=== PATIENT | male | born 1955 | race Caucasian/White ===

== ENCOUNTER → 2017-11-13 | Outpatient (CLI) | payer OTHER ==
[~2017-11-13] MED LIST: ADVAIR INH; ALIGN4 MG PO; ASMANEX220 MC1 PO; ASMANEX220 MCG PO; ASPIRIN81 M2 PO; BENTYL10 MG PO; CENTRUM SILVER1 EAC3 PO; DALMANE30 MG PO; DEXILANT60 MG PO; DIOVAN HCT 3201 EACH PO; DYMISTA NASAL S23 GM; FLOMAX0.4 MG PO; GADOBENATE DIMEGLUMINE 0 ML IV ONE; ISOSORBIDE DINI30 MG PO; NORVASC5 MG PO; OMEGA 3 PO; RANEXA500 MG PO; REGLAN10 MG PO; SOMA350 MG PO; TOPROL XL25 MG PO; ULTRAM50 MG PO; VASCEPA PO; XANAX1 MG PO; Z.0.CRESTOR40 MG PO; Z.0.DIOVAN HCT 1601 PO; Z.0.MULTIVITAMINS1 E PO; Z.0.NORVASC5 MG PO; Z.0.PLAVIX75 MG PO; Z.0.SOMA350 MG PO; Z.0.SUCRALFATE1 GM PO; Z.0.TRICOR145 MG PO; Z.0.ZETIA10 MG PO; Z.1.ZEGERID 40 MG1 E PO; ZANTAC300 MG PO
[2017-11-13 15:37] LABS: CREATININE, SERUM 2.25 mg/dL (0.72-1.25)
--- NOTE | 2017-11-15 08:16 | Diagnostic Imaging Report ---
History: Gait problems Comparison studies: None Technique: Sagittal T2; axial DWI, FLAIR, MPGR, T1, Coronal FLAIR. Intravenous contrast: None Findings: Scalp: Normal in signal . No masses . Bone marrow: Normal in signal intensity. Extra-axial: No masses, no fluid collections. Brain sulci: Multiple moderately prominent more significant at the sylvian fissures. Ventricles: Moderately prominent . No hydrocephalus . Parenchyma: Scattered and confluent periventricular and the white matter T2/FLAIR hyperintensities. No masses, hemorrhage, acute or chronic vascular insults. Mild volume loss at the bilateral hippocampi and fornices Suprasellar region: No abnormalities. Craniocervical junction: No abnormalities. Patent foramen magnum. No Chiari one malformation. Vessels: Normal flow-voids in the arteries and sinuses. IMPRESSION: 1. No acute abnormalities. 2. Mild to moderate volume loss more than expected for patient's age, and more prominent at the temporal lobes, which can be seen in some dementias. 3. Moderate chronic microvascular ischemic changes of the white matter. 4. Ventriculomegaly, this could be related to central volume loss or normal pressure hydrocephalus in the appropriate clinical setting. Signed by: DR Eliceo Solorio M.D. on 11/15/2017 8:12 AM
== END ==
LOC: MRI 14:20
PROVIDERS: ATTEND Student in an Organized Health Care Education/Training Program
DX: R26.9 Unspecified abnormalities of gait and mobility (principal)
CPT/HCPCS: 36415; 70551; 82565; 84520

== ENCOUNTER → 2018-01-30 | Outpatient (CLI) | payer OTHER ==
[~2018-01-30] MED LIST changes: -GADOBENATE DIMEGLUMINE 0 ML IV ONE; +LIDOCAINE HCL 1% LOCAL INJ 20 ML VIAL ONE
[2018-01-30 17:42] LABS: TOTAL PROTEIN,CSF 40.9 mg/dL (15-40)
[2018-01-30 18:11] LABS: APPEARANCE,CSF BLOODY (CLEAR); COLOR,CSF RED (COLORLESS)
[2018-01-30 18:12] LABS: TUBE NUMBER 3
[2018-01-30 18:16] LABS: WHITE BLOOD CELL,CSF 99 cells/uL (0-5)
[2018-01-30 18:42] LABS: ALBUMIN 3.7 g/dL (3.5-5.0); ANION GAP 16.2 mmol/L (8-16); CALCIUM 9.8 mg/dL (8.4-10.2); CREATININE, SERUM 1.35 mg/dL (0.72-1.25); POTASSIUM 3.2 mmol/L (3.5-5.1)
[2018-01-30 19:03] LABS: FREE T4 (FREE THYROXINE) 1.45 ng/dL (0.9-1.8); THYROID STIMULATING HORMONE 0.899 uIU/mL (0.350-4.940)
[2018-01-30 19:39] LABS: LYMPHOCYTES,CSF 73 % (40-80); MONOCYTES,CSF 7 %; NEUTROPHILS,CSF 20 % (0-6)
--- NOTE | 2018-01-31 14:31 | Diagnostic Imaging Report ---
PROCEDURE:LUMBAR PUNCTURE COMPARISON:None. INDICATIONS:NORMAL PRESSURE HYDROCEPHALUS FINDINGS:Lumbar puncture was requested by the clinical service. Informed written consent was obtained after the risks, benefits and alternatives of lumbar puncture were explained to the patient. Hiv Counselor films were obtained, and demonstrated 5 non-rib bearing lumbar type vertebral bodies. The patient was placed in the prone position on the fluoroscopy table. The back was prepped and draped using usual sterile technique. Local anesthesia was achieved with lidocaine 1%. Using fluoroscopic guidance, a 25 G spine needle was inserted at the L2/L3 intervertebral level until the needle reached the spinal canal with return of CSF. Opening pressure is estimated at less than 8 cm of H20 (prone position). 32 cc of clear CSF were obtained, and placed into sterile containers and sent to the laboratory for analysis. The pressure upon completion was estimated at less than 8 cm of H2O. The patient tolerated the procedure well without immediate complications. CONCLUSION: Successful fluoroscopic guided lumbar puncture. Dictated by: Scot Batista M.D. on 01/31/2018 at 14:32 Electronically approved by: Scot Batista M.D. on 01/31/2018 at 14:32
== END ==
LOC: DX 11:15
PROVIDERS: ATTEND Student in an Organized Health Care Education/Training Program
DX: G91.2 (Idiopathic) normal pressure hydrocephalus (principal)
CPT/HCPCS: 36415; 62270; 77003; 80053; 82607; 82945; 83921; 84157; 84165; 84439; 84443; 86334; 87070; 87205; 89051; J2001

== ENCOUNTER 2018-09-16 06:45 | Emergency (ER) | payer MEDICARE ==
[~2018-09-16] VITALS: Ht 180.3 cm; Wt 96.2 kg
[~2018-09-16 06:45] MED LIST changes: -LIDOCAINE HCL 1% LOCAL INJ 20 ML VIAL ONE
--- OUTSIDE RECORDS SUMMARY | 2018-09-16 06:49 | XMS REPORT | Clinical Summary ---
Author Author [facility] Address Unknown Phone Unavailable Care Team Providers Care Restaurant Team Member Name Role Phone Jayme Daugherty MD PCP Allergies No Known Allergies Medications End Date Status Medication Sig Dispensed Refills Start Date Active ALPRAZolam (XANAX) 0.5 MG Take 1 mg by 0 tablet mouth. Active amLODIPine (NORVASC) 5 mg Take 5 mg by 0 tablet mouth. Active aspirin (ECOTRIN) 81 MG Take 81 mg by 0 enteric coated tablet mouth. Active carisoprodol (SOMA) 350 Take 350 mg 0 MG tablet by mouth. Active clopidogrel (PLAVIX) 75 Take 75 mg by 0 mg tablet mouth. Active pantoprazole (PROTONIX) Take 40 mg by 0 40 MG EC tablet mouth daily. Active ezetimibe (ZETIA) 10 mg Take 10 mg by 0 tablet mouth. Active VASCEPA 1 gram capsule 0 7 Active isosorbide mononitrate Take 15 mg by 0 (IMDUR) 30 MG 24 hr mouth. tablet Active metoprolol succinate XL Take 100 mg 0 (TOPROL-XL) 100 mg 24 hr by mouth. tablet Active nitroglycerin (NITROSTAT) 0 0.4 MG SL tablet 7 Active potassium chloride 0 (K-DUR,KLOR-CON) 10 MEQ 7 CR tablet Active primidone (MYSOLINE) 50 0 MG tablet 8 Active ranitidine (ZANTAC) 300 0 MG tablet 7 Active RANEXA 500 mg 12 hr ER 0 tablet 7 Active rosuvastatin (CRESTOR) 20 Take 40 mg by 0 MG tablet mouth. Active tamsulosin (FLOMAX) 0.4 0 mg capsule,extended 8 release 24hr Active valsartan-hydrochlorothia 0 zide (DIOVAN-HCT) 320-25 7 mg per tablet Active pseudoepHEDrine (SUDAFED) Take 30 mg by 0 30 MG tablet mouth every 4 (four) hours as needed for congestion. Active Problems No known active problems Encounters Care Team Description Date Type Specialty Genaro Vuong MD Primary osteoarthritis of both knees (Primary Dx); History of total bilateral knee replacement 11/19/2017 Office Visit Orthopedic Surgery Gabrielle Moran Acute pain of both knees (Primary Dx) 11/16/2017 Orders Only Orthopedic Surgery after 09/15/2017 Social History Date Tobacco Use Types Packs/Day Years Used Never Assessed Sex Assigned at Date Recorded Not on file Industry Job Start Date Occupation Not on file Not on file Not on file Travel End Travel History Travel Start No recent travel history available. 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 PROGRAMMING MANAGER Weight 94.3 kg (208 lb) 11/19/2017 3:48 PM COMPUTER PROGRAMMING MANAGER Height 177.8 cm (5' 10") 11/19/2017 3:48 PM COMPUTER PROGRAMMING MANAGER Body Mass Index 29.84 Plan of Treatment Health Maintenance Due Date Last Done Comments COLON CANCER SCREENING 2003 SHINGRIX VACCINE (1 of 2) 2003 ZOSTER VACCINE 2013 INFLUENZA VACCINE 05/15/2018 PNEUMOCOCCAL 2018 POLYSACCHARIDE VACCINE AGE 65 AND OVER PNEUMOCOCCAL-13 2018 Procedures Comments Procedure Name Priority Date/Time Associated Diagnosis XR KNEE 4+ VW BILATERAL Routine 11/19/2017 Acute pain of both knees 4:04 PM COMPUTER PROGRAMMING MANAGER after 09/15/2017 Results * XR Knee 4+ Vw Bilateral (11/19/2017 4:04 PM COMPUTER PROGRAMMING MANAGER) Narrative Performed At [facility] Well fixed and aligned TKR Biateral Lander medial [facility] Organization Address City/State/Zipcode Phone Number [facility] [address] [place] [address] after 09/15/2017 Insurance Payer Benefit Subscriber ID Type Phone Address Plan / Group AETNA AETNA xxxxxxxxxx HMO HMO,POS,EP O, MC/EC Advance Directives Patient has advance care planning documents on file. For more information, kailey e contact: Gerardo Vargas [address] [place] [address]
--- OUTSIDE RECORDS SUMMARY | 2018-09-16 06:49 | XMS REPORT | Clinical Summary ---
Author [facility] Address Unknown Phone Unavailable Care Team Providers Care Woodwind Instrument Repairer Name Role Phone Jayme Daugherty PCP Unavailable Allergies Comments Active Allergy Reactions Severity Noted Date Azelastine Anaphylaxis High 11/29/2013 Doxycycline Rash Medium 04/06/2016 Esomeprazole Magnesium Anaphylaxis High 11/29/2013 Medications End Date Status Medication Sig Dispensed Refills Start Date Active clopidogrel (PLAVIX) 75 Take 75 mg by 0 mg tablet mouth daily. Active rosuvastatin (CRESTOR) 20 Take 40 mg by 0 MG tablet mouth daily. Active ezetimibe (ZETIA) 10 mg Take 10 mg by 0 tablet mouth daily. Active aspirin 81 MG EC tablet Take 81 mg by 0 mouth daily. Active flurazepam (DALMANE) 30 Take 30 mg by 0 MG capsule mouth every night as needed. Active ranitidine (ZANTAC) 300 Take 300 mg 0 MG tablet by mouth nightly. Active MULTIVITAMIN Take 1 0 W-MINERALS/LUTEIN capsule by (CENTRUM SILVER ORAL) mouth daily. Active carisoprodol (SOMA) 350 Take 350 mg 0 MG tablet by mouth 4 (four) times daily as needed for Muscle spasms. Active valsartan-hydrochlorothia Take 1 tablet 0 zide (DIOVAN-HCT) 320-25 by mouth mg per tablet daily. Active amLODIPine (NORVASC) 5 MG Take 5 mg by 0 tablet mouth daily. Active ranolazine (RANEXA) 500 Take 500 mg 0 MG 12 hr tablet by mouth 2 (two) times daily. Active metoprolol (TOPROL-XL) Take 100 mg 0 100 MG 24 hr tablet by mouth 2 (two) times daily. Active fenofibrate (TRICOR) 145 Take 145 mg 0 MG tablet by mouth daily. Active mometasone (ASMANEX Inhale 2 0 TWISTHALER) 220 mcg (30 puffs by doses) inhaler mouth via inhaler daily. Active dexlansoprazole 60 mg Take 60 mg by 0 capsule mouth daily. Active amoxicillin (AMOXIL) 500 Take 500 mg 0 MG capsule by mouth 4 (four) times daily. Active isosorbide mononitrate Take 15 mg by 0 (IMDUR) 30 MG 24 hr mouth daily. tablet Active icosapent ethyl 1 gram Take 2 g by 0 Cap mouth 2 (two) times daily. Active ALPRAZolam (XANAX) 0.5 MG Take 0.5 mg 0 tablet by mouth every night as needed for Anxiety. Active Problems Problem Noted Date Acute chest pain 06/08/2014 CAD (coronary artery disease) 05/29/2014 Overview: 80% CFX, 40-50% LAD (12/01/13) HTN (hypertension) 05/29/2014 HLD (hyperlipidemia) 05/29/2014 PVD (peripheral vascular disease) 05/29/2014 Impaired left ventricular relaxation 05/29/2014 RBBB (right bundle branch block) 05/29/2014 Chest pain 11/29/2013 Immunizations Name Dates Previously Given Next Due Pneumococcal 06/10/2014 Polysaccharide (Pneumovax) Social History Date Tobacco Use Types Packs/Day Years Used Former Smoker 1 Smokeless Tobacco: Never Used Alcohol Use Drinks/Week oz/Week Comments Yes socially Sex Assigned at Date Recorded Not on file Industry Job Start Date Occupation Not on file Not on file Not on file Travel End Travel History Travel Start No recent travel history available. Last Filed Vital Signs Not on file Plan of Treatment Not on file Results Not on fileafter 09/15/2017 Insurance Payer Benefit Subscriber ID Type Phone Address Plan / Group BLUE CROSS/BLUE SHIELD BCBS PPO xxxxxxxxxxxx PPO [phone] [address] [place] [address] CHOICE Advance Directives For more information, please contact: [facility] [address] [place] [address] [phone] Date Inactivated Comments Code Status Date Activated 10/07/2015 6:46 PM Full Code 10/06/2015 1:04 PM This code status was determined by: Patient 06/10/2014 1:33 PM Full Code 06/08/2014 11:05 PM This code status was determined by: Patient 06/03/2014 10:38 PM Full Code 06/03/2014 3:03 AM This code status was determined by: Patient 05/31/2014 4:45 PM Full Code 05/29/2014 5:50 PM This code status was determined by: Patient 05/29/2014 5:50 PM Full Code 05/29/2014 2:10 PM This code status was determined by: Patient
--- OUTSIDE RECORDS SUMMARY | 2018-09-16 06:50 | XMS REPORT | Summary of Care ---
Author Author [facility] Organization [facility] Address Unknown Phone Unavailable Encounter HQ Encntr_alias(FIN) [phone] Date(s): 02/27/18 - 02/28/18 [facility] [address] [facility], [address] [place], [place] [address] [phone] Vital Signs No data available for this section Problem List No data available for this section Allergies, Adverse Reactions, Alerts No data available for this section Medications No data available for this section Results No data available for this section Immunizations No data available for this section Procedures No data available for this section Social History No data available for this section Assessment and Plan No data available for this section
--- OUTSIDE RECORDS SUMMARY | 2018-09-16 06:50 | XMS REPORT | Summary of Care ---
Author Author [facility] Organization [facility] Address Unknown Phone Unavailable Encounter HQ Encntr_alias(FIN) [phone] Date(s): 02/20/18 - 02/21/18 [facility] [address] [facility], [address] [place], [place] [address] [phone] Vital Signs No [...]
--- OUTSIDE RECORDS SUMMARY | 2018-09-16 06:50 | XMS REPORT | Summary of Care ---
Author Author [facility] Organization [facility] Address Unknown Phone Unavailable Encounter HQ Carol(CHRISTIN) [phone] Date(s): 03/05/18 - 03/05/18 [facility] [address] [facility], [address] [phone] Discharge Disposition: Home or Self Care Attending Physician: Jennyfer Boyle MD Referring Physician: Arin Ureña MD Vital Signs Most recent to 1 oldest [Reference Range]: Height 177.8 cm (03/05/18 4:00 PM) Temperature Oral 98.9 DegF [96.4-99.1 DegF] (03/05/18 4:00 PM) Blood Pressure 126/81 mmHg [90-140/60-90 mmHg] (03/05/18 4:00 PM) Respiratory Rate 19 BRMIN [14-20 BRMIN] (03/05/18 4:00 PM) Peripheral Pulse 94 bpm Rate [60-100 bpm] (03/05/18 4:00 PM) Weight 95 kg (03/05/18 4:00 PM) Body Mass Index 30.05 m2 (03/05/18 4:00 PM) Problem List Condition Effective Dates Status Health Status Informant Chest Resolved pain(Confirmed) Simple Active obesity(Confirmed) Allergies, Adverse Reactions, Alerts Substance Reaction Severity Status doxycycline Active Astelin Active NexIUM Astelin Active Medications Align 4 mg oral capsule 4 mg=1 cap, PO, Daily, # 28 cap, 0 Refill(s) Start Date: 03/05/18 Status: Ordered aspirin 81 mg tablet, enteric coated 81 mg=1 tab, PO, Daily, # 90 tab, 3 Refill(s) Start Date: 03/05/18 Status: Ordered Centrum Silver Men's 1 tab, PO, Daily, 0 Refill(s) Start Date: 03/05/18 Status: Ordered Crestor 40 mg oral tablet 40 mg=1 tab, PO, Bedtime, # 30 tab, 0 Refill(s) Start Date: 03/05/18 Stop Date: 04/04/18 Status: Ordered Dalmane 30 mg oral capsule 30 mg=1 cap, PO, Bedtime, PRN for sleep, 0 Refill(s) Start Date: 03/05/18 Stop Date: 03/19/18 Status: Ordered desloratadine-pseudoephedrine 1 tab, PO, Q12H, 0 Refill(s) Start Date: 03/05/18 Status: Ordered Diovan HCT 25 mg-320 mg oral tablet 1 tab, PO, Daily, # 30 tab, 0 Refill(s) Start Date: 03/05/18 Status: Ordered finasteride 5 mg oral tablet 5 mg=1 tab, PO, Daily, # 30 tab, 0 Refill(s) Start Date: 03/05/18 Status: Ordered Flomax 0.4 mg oral capsule 0.4 mg=1 cap, PO, Daily, # 30 cap, 0 Refill(s) Start Date: 03/05/18 Status: Ordered isosorbide dinitrate 30 mg oral tablet 30 mg=1 tab, PO, BID, 0 Refill(s) Start Date: 03/05/18 Status: Ordered metoprolol tartrate 75 mg oral tablet 75 mg=1 tab, PO, BID, 0 Refill(s) Start Date: 03/05/18 Status: Ordered Norvasc 5 mg oral tablet 5 mg=1 tab, PO, Daily, # 30 tab, 1 Refill(s) Start Date: 03/05/18 Status: Ordered Plavix 75 mg oral tablet 75 mg=1 tab, PO, Daily, # 30 tab, 0 Refill(s) Start Date: 03/05/18 Status: Ordered potassium chloride 10 mEq oral capsule, extended release 10 mEq=1 cap, PO, Daily, # 30 cap, 1 Refill(s) Start Date: 03/05/18 Status: Ordered primidone PO, TID, 0 Refill(s) Start Date: 03/05/18 Status: Ordered Protonix 40 mg oral enteric coated tablet 40 mg=1 tab, PO, Daily, 0 Refill(s) Start Date: 03/05/18 Status: Ordered Protonix 40 mg oral granule =1 Pack, PO, Daily, # 30 ea, 0 Refill(s) Start Date: 03/05/18 Status: Ordered Ranexa 500 mg oral tablet, extended release 500 mg=1 tab, PO, BID, # 60 tab, 0 Refill(s) Start Date: 03/05/18 Status: Ordered Soma 350 mg oral tablet 350 mg=1 tab, PO, QID, 0 Refill(s) Start Date: 03/05/18 Status: Ordered Vascepa 2 gm, PO, BID, 0 Refill(s) Start Date: 03/05/18 Status: Ordered Vascepa 1 g oral capsule 2 gm=2 cap, PO, BID, 0 Refill(s) Start Date: 03/05/18 Status: Ordered Zetia 10 mg oral tablet 10 mg=1 tab, PO, Daily, # 30 tab, 0 Refill(s) Start Date: 03/05/18 Status: Ordered Results No data available for this section Immunizations No data available for this section Procedures Procedure Date Related Diagnosis Body Site Status Knee replacement1 Completed Stent, coronary2 Completed 1bilateral 06/2008 and 09/2008 82934, 2010, x2 2013 Social History Social History Type Response Substance Abuse Use: None. Alcohol Current, Previous treatment: None. Smoking Status Former smoker; Type: Cigarettes; Previous treatment: None; Exposure to Tobacco Smoke None; Cigarette Smoking Last 365 Days No; Reg Smoking Cessation Counseling No; Stopped at age: 52; entered on: 03/05/18 Assessment and Plan No data available for this section
--- OUTSIDE RECORDS SUMMARY | 2018-09-16 06:50 | XMS REPORT | Summary of Care ---
Author Author [facility] Organization [facility] Address Unknown Phone Unavailable Encounter HQ Carol(FIN) [phone] Date(s): 04/09/18 - 04/10/18 [facility] [address] [facility] [address] [facility], [address] [place] [phone] Vital Signs No data available for this section Problem List Condition Effective Dates Status Health Status Informant Chest Resolved pain(Confirmed) Simple Active obesity(Confirmed) Allergies, Adverse Reactions, Alerts Substance Reaction Severity Status doxycycline Active Astelin Active NexIUM Astelin Active Medications No data available for this section Results No data available for this section Immunizations No data available for this section Procedures Procedure Date Related Diagnosis Body Site Status Colonoscopy Completed Knee replacement1 Completed Stent, coronary2 Completed Surgical removal of wisdom tooth Completed 1bilateral 06/2008 and 09/2008 67362, 2010, x2 2013 Social History Social History Type Response Substance Abuse Use: None. Alcohol Current, Frequency: Daily. Previous treatment: None. Smoking Status Former smoker; Type: Cigarettes; Exposure to Tobacco Smoke None; Cigarette Smoking Last 365 Days No; Reg Smoking Cessation Counseling No1 entered on: 04/11/18 1Quit smoking 10 years ago Assessment and Plan No data available for this section
--- OUTSIDE RECORDS SUMMARY | 2018-09-16 06:50 | XMS REPORT | Summary of Care ---
Author Author [facility] Organization [facility] Address Unknown Phone Unavailable Encounter HQ Carol(FIN) [phone] Date(s): 04/26/18 - 04/27/18 [facility] [address] [facility], [address] [place] [phone] Vital Signs No [...] wisdom tooth Completed 1bilateral 06/2008 and 09/2008 10009, 2010, x2 2013 Social History Social History Type Response Substance Abuse Use: None. Alcohol Current, Frequency: Daily. Previous treatment: None. Smoking Status Former smoker; Type: Cigarettes; Exposure to Tobacco Smoke None; Cigarette Smoking Last 365 Days No; Reg Smoking Cessation Counseling No1 entered on: 04/23/18 1Quit smoking 10 years ago Assessment and Plan No data available for this section
--- OUTSIDE RECORDS SUMMARY | 2018-09-16 06:50 | XMS REPORT | Summary of Care ---
Author Author [facility] Organization [facility] Address Unknown Phone Unavailable Encounter DENISHA Medina(FIN) [phone] Date(s): 04/09/18 - 04/09/18 [facility] [address] [facility], [address] [phone] Discharge Disposition: Home or Self Care Attending Physician: Ian Oconnor MD Referring Physician: Arin Ureña MD Vital Signs Most recent to 1 oldest [Reference Range]: Height 177.8 cm (04/09/18 5:29 PM) Temperature Oral 97.8 DegF [96.4-99.1 DegF] (04/09/18 5:29 PM) Blood Pressure 124/79 mmHg [90-140/60-90 mmHg] (04/09/18 5:29 PM) Peripheral Pulse 91 bpm Rate [60-100 bpm] (04/09/18 5:29 PM) Weight 97.273 kg (04/09/18 5:29 PM) Body Mass Index 30.77 m2 (04/09/18 5:29 PM) Problem List Condition Effective Dates Status Health Status Informant Chest Resolved pain(Confirmed) Simple Active obesity(Confirmed) Allergies, Adverse Reactions, Alerts Substance Reaction Severity Status doxycycline Active Astelin Active NexIUM Astelin Active Medications No Known Medications Results No data available for this section Immunizations No data available for this section Procedures Procedure Date Related Diagnosis Body Site Status Colonoscopy Completed Knee replacement1 Completed Stent, coronary2 Completed Surgical removal of wisdom tooth Completed 1bilateral 06/2008 and 09/2008 31040, 2009, x2 2013 Social History Social History Type [...]
--- OUTSIDE RECORDS SUMMARY | 2018-09-16 06:50 | XMS REPORT ---
Author Author [facility] Address Unknown Phone Unavailable Care Team Providers Care Cadd Technician Name Role Phone Zachery CHAVARRIA Unavailable Unavailable HECTOR ALVAREZ Unavailable Unavailable Problems This patient has no known problems. Allergies, Adverse Reactions, Alerts This patient has no known allergies or adverse reactions. Medications This patient has no known medications. Results Test Description Test Time Test Comments Text Results Atomic Results Result Comments PLATELET AGGREGATION: FUNCTION SCREEN 2017-04-25 13:27:00 WEAK ADP RESULT(BEAKER) (test drxy=7282) 60 % 60-91 PLATELET FUNCTION SCREEN INTERP (BEAKER) (test ujer=3366) 60-100% indicates normal platelet function [id number] (BEAKER) (test dioz=9642) Carolina uZrita MD (electronic signature) PLATELET COUNT AGG (BEAKER) (test faom=4038) 200 K/CU MM 150-430 CBC W/PLT COUNT & AUTO [id number] 17:13:00* Test Item Value Reference Range Comments WHITE BLOOD CELL COUNT (BEAKER) (test yynu=633) 8.1 K/ L 4.0-10.0 RED BLOOD CELL COUNT (BEAKER) (test ipfu=895) 5.19 M/ L 4.20-5.80 HEMOGLOBIN (BEAKER) (test yqwc=107) 16.8 GM/DL 13.0-16.8 HEMATOCRIT (BEAKER) (test exkn=121) 49.5 % 40.0-50.0 MEAN CORPUSCULAR VOLUME (BEAKER) (test xrgw=543) 95.4 fL 82.0-98.0 MEAN CORPUSCULAR HEMOGLOBIN (BEAKER) (test eauw=819) 32.4 pg 27.0-33.0 MEAN CORPUSCULAR HEMOGLOBIN CONC (BEAKER) (test zpdl=047) 33.9 GM/DL 32.0-36.0 RED CELL DISTRIBUTION WIDTH (BEAKER) (test ggkw=469) 11.7 % 10.3-14.2 PLATELET COUNT (BEAKER) (test venq=177) 210 K/CU MM 150-430 MEAN PLATELET VOLUME (BEAKER) (test jlvm=708) 7.6 fL 6.5-10.5 NUCLEATED RED BLOOD CELLS (BEAKER) (test vfpy=435) 0 /100 WBC 0-0 NEUTROPHILS RELATIVE PERCENT (BEAKER) (test lhgd=446) 64 % LYMPHOCYTES RELATIVE PERCENT (BEAKER) (test rbmh=819) 22 % MONOCYTES RELATIVE PERCENT (BEAKER) (test nvni=494) 10 % EOSINOPHILS RELATIVE PERCENT (BEAKER) (test yovw=831) 3 % BASOPHILS RELATIVE PERCENT (BEAKER) (test yzei=493) 1 % NEUTROPHILS ABSOLUTE COUNT (BEAKER) (test zlhr=634) 5.18 K/ L 1.80-8.00 LYMPHOCYTES ABSOLUTE COUNT (BEAKER) (test bucj=386) 1.81 K/ L 1.48-4.50 MONOCYTES ABSOLUTE COUNT (BEAKER) (test evnq=239) 0.83 K/ L 0.00-1.30 EOSINOPHILS ABSOLUTE COUNT (BEAKER) (test qnvj=373) 0.23 K/ L 0.00-0.50 BASOPHILS ABSOLUTE COUNT (BEAKER) (test twyb=139) 0.06 K/ L 0.00-0.20 0.00LUMBAR SPINE PUNCTURE [facility] [address] [address] Patient Name: GAURAV ZUNIAG MR #: [id number] : 1955 Age/Sex: 62/M Req #: [id number] Adm Physician: Ordered by: ROSALINE CHAVARRIA M.D. Report #: [id number] Location: DX Room/Bed: Procedure: [id number] DX/LUMBAR SPINE PUNCTURE Exam Date: 01/30/18 Exam Time: 1400 REPORT STAT US: Signed PROCEDURE: LUMBAR PUNCTURE COMPARISON: None. INDIC ATIONS: NORMAL PRESSURE HYDROCEPHALUS FINDINGS: Lumbar puncture was re quested by the clinical service. Informed written consent was obtained after the risks, benefits and alternatives of lumbar puncture were explained to the patient. Facility Rehab Director films were obtained, and demonstrated 5 non-rib bearing lum bar type vertebral bodies. The patient was placed in the prone position on the fluoroscopy table. The back was prepped and draped using usual steri le technique. Local anesthesia was achieved with lidocaine 1%. Using fluoro scopic guidance, a 25 G spine needle was inserted at the L2/L3 intervertebral level until the needle reached the spinal canal with return of CSF. Opening pressure is estimated at less than 8 cm of H20 (prone position). 32 c c of clear CSF were obtained, and placed into sterile containers and sent to the laboratory for analysis. The pressure upon completion was estimated at l ess than 8 cm of H2O. The patient tolerated the procedure well without immedi ate complications. CONCLUSION: Successful fluoroscopic guided lumbar puncture. Dictated by: Teo He M.D. on 01/31/2018 at 14:32 Katelin ctronically approved by: Teo He M.D. on 01/31/2018 at 14:32 Dictated By: TEO HE MD 1432 COPY TO: VITO CHAVARRIA M.D. FLUORO ASSIST NEURO/PAIN CASES [place] [address] Patient Name: GAURAV ZUNIGA MR #: [id number] : 1955 Age/Sex: 62/M Req #: [id number] Adm Physician: Ordered by: ROSALINE CHAVARRIA M.D. Report #: [id number] Location: DX Room/Bed: Procedure: [id number] DX/FLUORO ASSIST NEURO/JOHNATHAN N CASES Exam Date: 01/30/18 Exam Time: 1400 RE PORT STATUS: Signed PROCEDURE: LUMBAR PUNCTURE COMPARISON: None. INDICATIONS: NORMAL PRESSURE HYDROCEPHALUS FINDINGS: Lumbar punctu re was requested by the clinical service. Informed written consent was obtai ian after the risks, benefits and alternatives of lumbar puncture were explai ian to the patient. Facility Rehab Director films were obtained, and demonstrated 5 non-rib be aring lumbar type vertebral bodies. The patient was placed in the prone position on the fluoroscopy table. The back was prepped and draped using us ual sterile technique. Local anesthesia was achieved with lidocaine 1%. Usi ng fluoroscopic guidance, a 25 G spine needle was inserted at the L2/L3 inter vertebral level until the needle reached the spinal canal with return of CSF. Opening pressure is estimated at less than 8 cm of H20 (prone positi on). 32 cc of clear CSF were obtained, and placed into sterile containers and sent to the laboratory for analysis. The pressure upon completion was estim ated at less than 8 cm of H2O. The patient tolerated the procedure well witho ut immediate complications. CONCLUSION: Successful fluoroscopic guide d lumbar puncture. Dictated by: Teo He M.D. on 01/31/2018 at 14:32 Electronically approved by: Teo He M.D. on 01/31/2018 at 14:32 Dictated By: TEO HE MD 1432 Transcribed By: MADISON on 01/31/18 1432 COPY TO: ROSALINE ROSA M.D. MRI BRAIN WO [place] [address] Patient Name: GAURAV ZUNIGA MR #: [id number] : 1955 Age/Sex: 62/M Req #: [id number] Adm Physician: Ordered by: ROSALINE CHAVARRIA M.D. Report #: [id number] Location: MRI Room/Bed: Procedure: [id number] MRI/MRI BRAIN WO Exam Da te: Exam Time: REPORT STATUS: Signed Histo ry: Gait problems Comparison studies: None Technique: Sagittal T2; axi al DWI, FLAIR, MPGR, T1, Coronal FLAIR. Intravenous contrast: None Findin gs: Scalp: Normal in signal . No masses . Bone marrow: Normal in signal i ntensity. Extra-axial: No masses, no fluid collections. Brain sulci : Multiple moderately prominent more significant at the sylvian fissures. Ve ntricles: Moderately prominent . No hydrocephalus . Parenchyma: Scattered and confluent periventricular and the white matter T2/FLAIR hyperintensities. No masses, hemorrhage, acute or chronic vascular insults. Mild volume loss at the bilateral hippocampi and fornices Suprasellar region: No abnormalities. Craniocervical junction: No abnormalities. Patent foramen magnum. No Chiari one malformation. Vessels: Normal flow-voids in the arteries and sinuses. IMPRESSION: 1. No acute abnormalities. 2. Mild to moderate volume loss more than expected for patient's age, and more prominent at the temporal lobes, which can be seen in some dementias. 3. Moderate chronic micro vascular ischemic changes of the white matter. 4. Ventriculomegaly, this c ould be related to central volume loss or normal pressure hydrocephalus in the appropriate clinical setting. Signed by: DR Eliceo Soloiro M.D. on 11/15/2017 8:12 AM Dictated By: ELICEO JUDD MD Electronically Maame d By: ELICEO JUDD MD on 11/15/17 08 Transcribed By: SEVEN on 0812 COPY TO: ROSALINE CHAVARRIA M.D.
--- OUTSIDE RECORDS SUMMARY | 2018-09-16 06:50 | XMS REPORT | Summary of Care ---
Author Author [facility] Organization [facility] Address Unknown Phone Unavailable Encounter HQ Daljit_johnny(FIN) [id number] Date(s): 03/05/18 - 03/05/18 [facility] [address], [address] [place], [place] [address] [phone] Attending Physician: Ian Oconnor MD Referring Physician: Arin Ureña MD Vital Signs No data available for this [...] Stent, coronary2 Completed 1bilateral 06/2008 and 09/2008 33664, 2009, x2 2013 Social History Social History [...]
--- OUTSIDE RECORDS SUMMARY | 2018-09-16 06:50 | XMS REPORT | Summary of Care ---
Author Author [facility] [place] [facility] Address Unknown Phone Unavailable Encounter HQ Carol(FIN) [phone] Date(s): 05/03/18 - 05/04/18 [facility] [address], [address] [place], [place] [address] [phone] Vital Signs No [...] wisdom tooth Completed 1bilateral 06/2008 and 09/2008 20081, 2010, x2 2013 Social History Social History [...]
--- OUTSIDE RECORDS SUMMARY | 2018-09-16 06:50 | XMS REPORT | Continuity of Care Document ---
Author Author [facility] Interface Address Unknown Phone Unavailable Problems Problem Status Onset Date Classification Date Reported Comments Source (IDIOPATHIC) NORMAL PRESSURE HYDROCEPHAL Active 03/15/2018 [facility] Chest pain Resolved Problem 05/07/2018 [facility] [place] [facility] Simple obesity Active Problem 05/07/2018 [facility] Medications Medication Details Route Status Patient Instructions Ordering Provider Order Date Source hydrochlorothiazide 25 mg oral tablet 25 mg, 1 tab, Route: PO, Drug form: TAB, Daily, Start date: 04/12/18 9:00:00 CDT, Duration: 30 day, Stop date: 05/11/18 9:00:00 CDTNotes: (Same as: Hydrodiuril) With food. Inactive 04/12/2018 [facility] Isosorbide Dinitrate 15 mg, 3 tab, Route: PO, Drug form: TAB, Daily, Dosing Weight 97.273, kg, Start date: 04/12/18 9:00:00 CDT, Duration: 30 day, Stop date: 05/11/18 9:00:00 CDTNotes: (Same as:Isordil) Take on empty stomach/ full glass of water Inactive 04/12/2018 [facility] Hydrochlorothiazide 25 MG / valsartan 320 MG Oral Tablet [Diovan HCT 320/25] 1 tab, Route: PO, Drug Form: TAB, Dosing Weight 97.273, kg, Daily, Start date: 04/12/18 9:00:00 CDT, Duration: 30 day, Stop date: 05/11/18 9:00:00 CDT No Longer Active 04/12/2018 [facility] Zetia 10 mg, 1 tab, Route: PO, Drug form: TAB, Daily, Dosing Weight 97.273, kg, Start date: 04/12/18 9:00:00 CDT, Duration: 30 day, Stop date: 05/11/18 9:00:00 CDTNotes: (Same as: Zetia) Inactive 04/12/2018 [facility] potassium chloride 10 mEq oral tablet, extended release 10 mEq, 1 tab, Route: PO, Drug form: ERTAB, Daily, Dosing Weight 97.273, kg, Start date: 04/12/18 9:00:00 CDT, Duration: 30 day, Stop date: 05/11/18 9:00:00 CDTNotes: (Same as: K-Dur 10) "Do Not Crush" With food and full glass of water Inactive 04/12/2018 [facility] Flomax 0.4 mg, 1 cap, Route: PO, Drug form: CAP, Daily, Dosing Weight 97.273, kg, Start date: 04/12/18 9:00:00 CDT, Duration: 30 day, Stop date: 05/11/18 9:00:00 CDTNotes: (Same As: Flomax) Inactive 04/12/2018 [facility] Pseudoephedrine HCL Pseudoephedrine HCL, 30 mg, Route: PO, Daily, 04/12/18 9:00:00 CDT, Duration: 30 day, Stop date: 05/11/18 9:00:00 CDT Inactive 04/12/2018 [facility] Multiple Vitamins with Minerals oral tablet 1 tab, Route: PO, Drug Form: TAB, Dosing Weight 97.273, kg, Daily, Start date: 04/12/18 9:00:00 CDT, Duration: 30 day, Stop date: 05/11/18 9:00:00 CDTNotes: (Same as:Thera-M, Theragran-M) WASTE: F/P - Black; E - Municipal Trash Bin Give with food. Inactive 04/12/2018 [facility] valsartan 320 mg, 2 tab, Route: PO, Drug form: TAB, Daily, Start date: 04/12/18 9:00:00 CDT, Duration: 30 day, Stop date: 05/11/18 9:00:00 CDTNotes: Same as Diovan Inactive 04/12/2018 [facility] Ondansetron 4 MG Oral Tablet [Zofran] 4 mg=1 tab, PO, TID, PRN Nausea & Vomiting, # 12 tab, 0 Refill(s) Active 04/12/2018 [facility] tramadol hydrochloride 50 MG Oral Tablet 50 mg=1 tab, PO, Q4H, PRN Pain Score 1-3, X 14 day, # 50 tab, 0 Refill(s) Active 04/12/2018 [facility] Promethazine Hydrochloride 12.5 MG Oral Tablet [Phenergan] 12.5 mg=1 tab, PO, Q6H, PRN Nausea & Vomiting, # 12 tab, 0 Refill(s) Active 04/12/2018 [facility] Acetaminophen 325 MG / Hydrocodone Bitartrate 10 MG Oral Tablet [[place] 10/325] 1 tab, PO, Q4H, PRN Pain Score 4-6, X 14 day, # 60 tab, 0 Refill(s) Active 04/12/2018 [facility] Docusate Sodium 100 MG Oral Capsule 100 mg=1 cap, PO, Q12H, # 28 cap, 0 Refill(s) Active 04/12/2018 [facility] Finasteride 5 mg, 1 tab, Route: PO, Drug form: TAB, Bedtime, Dosing Weight 97.273, kg, Start date: 04/11/18 21:00:00 CDT, Duration: 30 day, Stop date: 05/10/18 21:00:00 CDTNotes: (Same as: Proscar) No Longer Active 04/12/2018 [facility] Zantac 300 mg, Route: PO, Bedtime, Dosing Weight 97.273, kg, Start date: 04/11/18 21:00:00 CDT, Duration: 30 day, Stop date: 05/10/18 21:00:00 CDT Inactive 04/12/2018 [facility] famotidine 40 mg, 2 tab, Route: PO, Drug form: TAB, Bedtime, Start date: 04/11/18 21:00:00 CDT, Duration: 30 day, Stop date: 05/10/18 21:00:00 CDTNotes: (Same as: Pepcid) No Longer Active 04/12/2018 [facility] Crestor 40 mg, 4 tab, Route: PO, Drug form: TAB, Bedtime, Dosing Weight 97.273, kg, Start date: 04/11/18 21:00:00 CDT, Duration: 30 day, Stop date: 05/10/18 21:00:00 CDTNotes: (Same As: Crestor) No Longer Active 04/12/2018 [facility] Saline Flush 0.9% 10 ml, Route: IVP, Drug Form: INJ, Dosing Weight 97.273, kg, Q12H, Start date: 04/11/18 21:00:00 CDT, Duration: 30 day, Stop date: 05/11/18 9:00:00 CDTNotes: (Same as: BD Posiflush) No Longer Active 04/12/2018 [facility] metoprolol extended release 75 mg, 3 tab, Route: PO, Drug form: ERTAB, BID, Start date: 04/11/18 21:00:00 CDT, Duration: 30 day, Stop date: 05/11/18 9:00:00 CDTNotes: (Same as: Toprol XL) Do Not Crush No Longer Active 04/12/2018 [facility] gabapentin 300 mg, 1 cap, Route: PO, Drug form: CAP, BID, Dosing Weight 97.273, kg, Start date: 04/11/18 17:00:00 CDT, Duration: 30 day, Stop date: 05/11/18 9:00:00 CDTNotes: (Same as: Neurontin) No Longer Active 04/11/2018 [facility] 12 HR ranolazine 500 MG Extended Release Tablet [Ranexa] 500 mg, 1 tab, Route: PO, Drug form: TAB, BID, Dosing Weight 97.273, kg, Start date: 04/11/18 17:00:00 CDT, Duration: 30 day, Stop date: 05/11/18 9:00:00 CDTNotes: Same as Ranexa "Do Not Crush" No Longer Active 04/11/2018 [facility] Docusate 50 mg, 1 cap, Route: PO, Drug form: CAP, BID, Dosing Weight 97.273, kg, Start date: 04/11/18 17:00:00 CDT, Duration: 30 day, Stop date: 05/11/18 9:00:00 CDT, Pediatric DosingNotes: (Same as: Colace) (Do Not Crush) No Longer Active 04/11/2018 [facility] Cefazolin 2 gm, 20 mL, Route: IV, Drug form: SOLN, Q8H, Dosing Weight 97.273, kg, Start date: 04/11/18 17:00:00 CDT, Duration: 24 hr, Stop date: 04/12/18 9:00:00 CDT, ABX Indication: Surgical ProphylaxisNotes: (Same as Ancef) No Longer Active 04/11/2018 [facility] sennosides, DETENTION 8.6 mg, 1 tab, Route: PO, Drug Form: TAB, Dosing Weight 97.273, kg, BID, Start date: 04/11/18 17:00:00 CDT, Duration: 30 day, Stop date: 05/11/18 9:00:00 CDTNotes: (Same as: Senokot) No Longer Active 04/11/2018 [facility] Protonix 40 mg, 1 tab, Route: PO, Drug form: ECTAB, BID- Before Meals, Dosing Weight 97.273, kg, Start date: 04/11/18 16:30:00 CDT, Duration: 30 day, Stop date: 05/11/18 7:30:00 CDTNotes: Tablet should not be chewed or crushed. (Same as: Protonix) No Longer Active 04/11/2018 [facility] gabapentin 300 MG Oral Capsule 300 mg=1 cap, PO, TID, 0 Refill(s) Active 04/11/2018 [facility] metoprolol 100 mg oral tablet, extended release 100 mg=1 tab, PO, BID, 0 Refill(s) Active 04/11/2018 [facility] sugammadex (ANES) Route: IV, Drug form: SOLN, ONCE, Stop date: 04/11/18 11:04:00 CDT Inactive 04/11/2018 [facility] glycopyrrolate (ANES) Route: IV, Drug form: INJ, ONCE, Stop date: 04/11/18 10:55:00 CDT Inactive 04/11/2018 [facility] neostigmine (ANES) Route: IV, Drug form: INJ, ONCE, Stop date: 04/11/18 10:55:00 CDT Inactive 04/11/2018 [facility] sugammadex 200 mg, 2 mL, Route: IV, Drug form: SOLN, ONCE, Start date: 04/11/18 10:46:00 CDT, Stop date: 04/11/18 10:46:00 CDTNotes: (Same as: Bridion) Inactive 04/11/2018 [facility] vasopressin (ANES) Route: IV, Drug form: INJ, ONCE, Stop date: 04/11/18 10:25:00 CDT Inactive 04/11/2018 [facility] morphine Sulfate (ANES) Route: IV, Drug form: INJ, ONCE, Stop date: 04/11/18 10:10:00 CDT Inactive 04/11/2018 [facility] ceFAZolin (ANES) Route: IV, Drug form: INJ, ONCE, Stop date: 04/11/18 10:10:00 CDT Inactive 04/11/2018 [facility] dexamethasone (ANES) Route: IV, Drug form: INJ, ONCE, Stop date: 04/11/18 9:50:00 CDT Inactive 04/11/2018 [facility] ondansetron ([facility]) Route: IV, Drug form: INJ, ONCE, Stop date: 04/11/18 9:50:00 CDT Inactive 04/11/2018 [facility] fentaNYL ([facility]) Route: IV, Drug form: INJ, ONCE, Stop date: 04/11/18 9:50:00 CDT Inactive 04/11/2018 [facility] lidocaine (ANES) Route: IV, Drug form: INJ, ONCE, Stop date: 04/11/18 9:50:00 CDT Inactive 04/11/2018 [facility] rocuronium ([facility]) Route: IV, Drug form: INJ, ONCE, Stop date: 04/11/18 9:50:00 CDT Inactive 04/11/2018 [facility] propofol (ANES) Route: IV, Drug form: INJ, ONCE, Stop date: 04/11/18 9:50:00 CDT Inactive 04/11/2018 [facility] midazolam (ANES) Route: IV, Drug form: SOLN, ONCE, Stop date: 04/11/18 9:50:00 CDT Inactive 04/11/2018 [facility] famotidine ([facility]) Route: IV, Drug form: INJ, ONCE, Stop date: 04/11/18 9:50:00 CDT Inactive 04/11/2018 [facility] acetaminophen (ANES) Route: IV, Drug form: INJ, ONCE, Stop date: 04/11/18 9:45:00 CDT Inactive 04/11/2018 [facility] phenylephrine (ANES) Route: IV, Drug form: INJ, ONCE, Stop date: 04/11/18 9:40:00 CDT Inactive 04/11/2018 [facility] ePHEDrine ([facility]) Route: IV, Drug form: INJ, ONCE, Stop date: 04/11/18 9:40:00 CDT Inactive 04/11/2018 [facility] Ondansetron 4 mg, Route: IVP, ONCE, Dosing Weight 97.273, kg, PRN Nausea & Vomiting, Start date: 04/11/18 9:32:00 CDT Inactive 04/11/2018 [facility] Naloxone 0.4 mg, Route: IVP, Q2MIN, Dosing Weight 97.273, kg, PRN Narcotic Reversal, Start date: 04/11/18 9:32:00 CDT, Duration: 8 doses or times, Stop date: Limited # of times Inactive 04/11/2018 [facility] Flumazenil 0.2 mg, Route: IVP, PRN, Dosing Weight 97.273, kg, PRN Benzodiazepine Reversal, Initial dose, Start date: 04/11/18 9:32:00 CDT, Duration: 30 day, Stop date: 05/11/18 9:31:00 CDT Inactive 04/11/2018 [facility] Hydromorphone 0.5 mg, Route: IVP, Q5Min, Dosing Weight 97.273, kg, PRN Pain Score 7-10, Start date: 04/11/18 9:32:00 CDT, Duration: 4 doses or times, Stop date: Limited # of times Inactive 04/11/2018 [facility] Fentanyl 25 microgram, Route: IVP, Q5Min, Dosing Weight 97.273, kg, PRN Pain Score 4-6, Priority: Routine, Start date: 04/11/18 9:32:00 CDT, Duration: 4 doses or times, Stop date: Limited # of times Inactive 04/11/2018 [facility] Oxycodone 5 mg, Route: PO, Drug form: TAB, Q4H, Dosing Weight 97.273, kg, PRN Pain Score 4-6, Start date: 04/11/18 9:32:00 CDT, Duration: 30 day, Stop date: 05/11/18 9:31:00 CDT Inactive 04/11/2018 [facility] Metoprolol 1 mg, Route: IVP, Q5Min, Dosing Weight 97.273, kg, PRN Elevated BP, Start date: 04/11/18 9:32:00 CDT, Duration: 5 doses or times, Stop date: Limited # of times Inactive 04/11/2018 [facility] Labetalol 10 mg, Route: IVP, Q5Min, Dosing Weight 97.273, kg, PRN Elevated BP, Start date: 04/11/18 9:32:00 CDT, Duration: 5 doses or times, Stop date: Limited # of times Inactive 04/11/2018 [facility] Saline Flush 0.9% 10 ml, Route: IVP, Drug Form: INJ, Dosing Weight 97.273, kg, PRN, PRN Line Flush, Start date: 04/11/18 9:24:00 CDT, Duration: 30 day, Stop date: 05/11/18 9:23:00 CDTNotes: (Same as: BD Posiflush) No Longer Active 04/11/2018 [facility] Tylenol 650 mg, 2 tab, Route: PO, Drug form: TAB, Q6H, Dosing Weight 97.273, kg, PRN Pain 1-3/Temp > 100.4 F, Start date: 04/11/18 9:24:00 CDT, Duration: 30 day, Stop date: 05/11/18 9:23:00 CDTNotes: Do not exceed 4 gm/day. (Same as: Tylenol) No Longer Active 04/11/2018 [facility] Flomax 0.4 mg, Route: PO, Daily, Dosing Weight 97.273, kg, Priority: NOW, Start date: 04/11/18 9:24:00 CDT, Duration: 30 day, Stop date: 05/11/18 9:00:00 CDT Inactive 04/11/2018 [facility] Benadryl 25 mg, 1 cap, Route: PO, Drug form: CAP, TID, Dosing Weight 97.273, kg, PRN Itching, Start date: 04/11/18 9:24:00 CDT, Duration: 30 day, Stop date: 05/11/18 9:23:00 CDTNotes: (Same as: Benadryl) No Longer Active 04/11/2018 [facility] Dilaudid 0.5 mg, 0.25 mL, Route: IVP, Drug form: INJ, Q3H, Dosing Weight 97.273, kg, PRN Pain Score 7-10, Start date: 04/11/18 9:24:00 CDT, Duration: 30 day, Stop date: 05/11/18 9:23:00 CDTNotes: Same as Dilaudid No Longer Active 04/11/2018 [facility] phenol 1 spray, Route: TOP, Daily, Drug form: SPRY, PRN Sore Throat, Start date: 04/11/18 9:24:00 CDT, Duration: 30 day, Stop date: 05/11/18 9:23:00 CDTNotes: Chloraseptic [place] (Same as: Chloraseptic, Sore Th roat [place]) WASTE: F/P - Black; E - Municipal Trash Bin No Longer Active 04/11/2018 [facility] Acetaminophen 325 MG / Hydrocodone Bitartrate 10 MG Oral Tablet [[place] 10/325] 2 tab, Route: PO, Drug Form: TAB, Dosing Weight 97.273, kg, Q4H, PRN Pain Score 4-6, Start date: 04/11/18 9:24:00 CDT, Duration: 30 day, Stop date: 05/11/18 9:23:00 CDTNotes: Do not exceed 4gm/day of acetaminophen. (Same as: [place] 325/10) No Longer Active 04/11/2018 [facility] Ondansetron 4 mg, 2 mL, Route: IVP, Drug form: INJ, Q6H, Dosing Weight 97.273, kg, PRN Nausea & Vomiting, Start date: 04/11/18 9:24:00 CDT, Duration: 30 day, Stop date: 05/11/18 9:23:00 CDT, >/=4 years, Pediatric DosingNotes: (Same as: Zofran) MEDICATION WASTE Product Size: 4 mg Product Wasted: ___ mg No Longer Active 04/11/2018 [facility] Labetalol 10 mg, 2 mL, Route: IVP, Drug form: INJ, Q15Min, Dosing Weight 97.273, kg, PRN Hypertension, Start date: 04/11/18 9:24:00 CDT, Duration: 3 doses or times, Stop date: 05/10/18 0:00:00 CDT No Longer Active 04/11/2018 [facility] Hydralazine 20 mg, 1 mL, Route: IVP, Drug form: INJ, Q4H, Dosing Weight 97.273, kg, PRN Hypertension, Start date: 04/11/18 9:24:00 CDT, Duration: 30 day, Stop date: 05/11/18 9:23:00 CDTNotes: (Same as: Apresoline) No Longer Active 04/11/2018 [facility] Melatonin 3 MG Extended Release Tablet 3 mg, 1 tab, Route: PO, Drug Form: TAB, Dosing Weight 97.273, kg, Bedtime, PRN as needed for insomnia, Start date: 04/11/18 9:24:00 CDT, Duration: 30 day, Stop date: 05/11/18 9:23:00 CDTNotes: (Same as: Melatonin) No Longer Active 04/11/2018 [facility] Bisacodyl 10 mg, 1 supp, Route: [place], Drug form: SUPP, Daily, Dosing Weight 97.273, kg, PRN Constipation, Start date: 04/11/18 9:24:00 CDT, Duration: 30 day, Stop date: 05/11/18 9:23:00 CDTNotes: (Same As: Dulcolax, [place]isco-Lax) No Longer Active 04/11/2018 [facility] Robaxin 500 mg, 1 tab, Route: PO, Drug form: TAB, TID, Dosing Weight 97.273, kg, PRN Spasm, Start date: 04/11/18 9:24:00 CDT, Duration: 30 day, Stop date: 05/11/18 9:23:00 CDTNotes: (Same as:Robaxin) No Longer Active 04/11/2018 [facility] Lactated Ringers Injection IV (ANES) 1000 mL Route: IV, Total Volume: 1,000, Start date: 04/11/18 8:00:00 CDT, Stop date: 04/11/18 9:00:00 CDT Inactive 04/11/2018 [facility] ceFAZolin + sterile water 20 mL 2 gm, Route: IV, PRE OP, Start date: 04/11/18 4:00:00 CDT, Duration: 1 day, Stop date: 04/12/18 3:59:00 CDT, ABX Indication: Surgical ProphylaxisNotes: (Same As: Cayetano Holden) MEDICATION WASTE Product Size: 1000 mg Product Wasted: ___ mg No Longer Active 04/11/2018 [facility] gabapentin 300 mg, PO, BID No Longer Active 04/09/2018 [facility] Zantac 300 mg, PO, Bedtime Active 04/09/2018 [facility] Pseudoephedrine HCL Pseudoephedrine HCL, 30 mg=, PO, Daily Active 04/09/2018 [facility] Isosorbide Dinitrate 15 mg, PO, Daily Active 04/09/2018 [facility] isosorbide dinitrate 30 mg oral tablet 30 mg=1 tab, PO, BID, 0 Refill(s) Active 03/05/2018 [facility] Vascepa 2 gm, PO, BID, 0 Refill(s) Active 03/05/2018 [facility] Primidone PO, TID, 0 Refill(s) Active 03/05/2018 [facility] Amlodipine 5 MG Oral Tablet [Norvasc] 5 mg=1 tab, PO, Daily, # 30 tab, 1 Refill(s) Active 03/05/2018 [facility] clopidogrel 75 MG Oral Tablet [Plavix] 75 mg=1 tab, PO, Daily, # 30 tab, 0 Refill(s) Active 03/05/2018 [facility] finasteride 5 mg oral tablet 5 mg=1 tab, PO, Daily, # 30 tab, 0 Refill(s) Active 03/05/2018 [facility] Hydrochlorothiazide 25 MG / valsartan 320 MG Oral Tablet [Diovan HCT 320/25] 1 tab, PO, Daily, # 30 tab, 0 Refill(s) Active 03/05/2018 [facility] Tamsulosin hydrochloride 0.4 MG Oral Capsule [Flomax] 0.4 mg=1 cap, PO, Daily, # 30 cap, 0 Refill(s) Active 03/05/2018 [facility] ezetimibe 10 MG Oral Tablet [Zetia] 10 mg=1 tab, PO, Daily, # 30 tab, 0 Refill(s) Active 03/05/2018 [facility] potassium chloride 10 mEq oral capsule, extended release 10 mEq=1 cap, PO, Daily, # 30 cap, 1 Refill(s) Active 03/05/2018 [facility] pantoprazole 40 MG Enteric Coated Tablet [Protonix] 40 mg=1 tab, PO, Daily, 0 Refill(s) Active 03/05/2018 [facility] pantoprazole 40 MG Granules [Protonix] =1 Pack, PO, Daily, # 30 ea, 0 Refill(s) Active 03/05/2018 [facility] Bifidobacterium Infantis 4 MG Oral Capsule [Align] 4 mg=1 cap, PO, Daily, # 28 cap, 0 Refill(s) Active 03/05/2018 [facility] Rosuvastatin calcium 40 MG Oral Tablet [Crestor] 40 mg=1 tab, PO, Bedtime, # 30 tab, 0 Refill(s) Active 03/05/2018 [facility] Aspirin 81 MG Enteric Coated Tablet 81 mg=1 tab, PO, Daily, # 90 tab, 3 Refill(s) Active 03/05/2018 [facility] Carisoprodol 350 MG Oral Tablet [Soma] 350 mg=1 tab, PO, QID, 0 Refill(s) Active 03/05/2018 [facility] desloratadine / Pseudoephedrine 1 tab, PO, Q12H, 0 Refill(s) Active 03/05/2018 [facility] Dalmane 30 mg oral capsule 30 mg=1 cap, PO, Bedtime, PRN for sleep, 0 Refill(s) Active 03/05/2018 [facility] Metoprolol Tartrate 75 MG Oral Tablet 75 mg=1 tab, PO, BID, 0 Refill(s) Active 03/05/2018 [facility] [place] [facility] Centrum Silver Men's 1 tab, PO, Daily, 0 Refill(s) Active 03/05/2018 [facility] icosapent ethyl 1000 MG Oral Capsule [Vascepa] 2 gm=2 cap, PO, BID, 0 Refill(s) Active 03/05/2018 [facility] 12 HR ranolazine 500 MG Extended Release Tablet [Ranexa] 500 mg=1 tab, PO, BID, # 60 tab, 0 Refill(s) Active 03/05/2018 [facility] Allergies, Adverse Reactions, Alerts Substance Category Reaction Severity Reaction type Status Date Reported Comments Source doxycycline Assertion Drug allergy Active [facility] Astelin Assertion Drug allergy Active [facility] NexIUM Assertion Astelin Drug allergy Active [facility] Immunizations Immunization Date Given Site Status Last Updated Comments Source Results Order Name Results Value Reference Range Date Interpretation Comments Source Brain wo contrast CT Brain wo contrast CT Patient Name: GAURAV ZUNIGA : 1955; Age: 62 years y/o Male MR: [id number] Study: Brain wo contrast CT 04/24/2018 4:13 PM CDT Ordering Physician: Davian Oconnor MD Clinical Indication: ; Status post shunt Comparison: None TECHNIQUE: CT images were obtained from the foramen magnum to the vertex without the use of intravenous contrast on a multidetector CT. Coronal and sagittal reconstructions were obtained. CT radiation dose DLP: 486 mGy-cm FINDINGS: A right parietal approach ventriculostomy catheter is seen with tip in the right lateral ventricle. The ventricles are moderately dilated. No previous studies are available for comparison, limiting assessment for shunt malfunction. No acute intracranial hemorrhage is seen. No extra-axial fluid collection is seen. There is mild generalized cerebral volume loss with associated ventricular prominence. There are mild nonspecific supratentorial white matter hypodensities likely representing chronic small vessel ischemic changes in this age. There are no chronic territorial infarcts. There are calcifications in the carotid siphons and intradural vertebral arteries. The calvarium, paranasal sinuses and mastoids are unremarkable. IMPRESSION: Moderately dilated ventricles with a right parietal approach ventriculostomy catheter terminating in the right lateral ventricle. No previous studies are available for comparison, limiting assessment for changes in ventricular size/shunt malfunction. Correlation with prior imaging is recommended. No acute intracranial hemorrhage. If there is further concern for intracranial pathology or acute stroke, further assessment with an MRI of the brain should be considered. NARINDER: JOSH 04/24/2018 - - Read by: Bee Avitia Dictated Date/time: 04/24/18 16:28 Electronically Signed by: Bee Avitia 04/24/18 16:32 FINAL REPORT RADHA [place] Vital Signs Vital Sign Value Date Comments Source BMI Calculated 30.34 04/23/2018 [facility] Weight 95.909 04/23/2018 [facility] Height 177.8 cm 04/23/2018 [facility] Heart Rate 92 04/23/2018 [facility] Systolic (mm Hg) 122 04/23/2018 [facility] Diastolic (mm Hg) 80 04/23/2018 [facility] Temperature Oral (F) 98.0 F [facility]23[facility] 45 04/12/2018 [facility] Systolic (mm Hg) 122 04/12/2018 [facility] Diastolic (mm Hg) 81 04/12/2018 [facility] Systolic (mm Hg) 126 04/12/2018 [facility] Diastolic (mm Hg) 65 04/12/2018 [facility] Respitory Rate 36 04/12/2018 [facility] Systolic (mm Hg) 107 04/12/2018 [facility] Diastolic (mm Hg) 58 04/12/2018 [facility] Respitory Rate 18 04/12/2018 [facility] Temperature Oral (F) 98 F 04/11/2018 [facility] BMI Calculated 30.48 04/11/2018 [facility] Weight 96.364 04/11/2018 [facility] Height 177.8 cm 04/11/2018 [facility] BMI Calculated 30.77 04/11/2018 [facility] Weight 97.273 04/11/2018 [facility] Height 177.8 cm 04/11/2018 [facility] Heart Rate 70 04/11/2018 [facility] Height 177.8 cm 04/09/2018 [facility] BMI Calculated 30.77 04/09/2018 [facility] Weight 97.273 04/09/2018 [facility] Systolic (mm Hg) 124 04/09/2018 [facility] Diastolic (mm Hg) 79 04/09/2018 [facility] Temperature Oral (F) 97.8 F 04/09/2018 [facility] Heart Rate 91 04/09/2018 [facility] Height 274.32 cm 04/09/2018 [facility] BMI Calculated 30.68 04/09/2018 [facility] Weight 97.003 04/09/2018 [facility] Height 177.8 cm 03/05/2018 [facility] BMI Calculated 30.05 03/05/2018 [facility] Respitory Rate 19 03/05/2018 [facility] Temperature Oral (F) 98.9 F 03/05/2018 [facility] Heart Rate 94 03/05/2018 [facility] Weight 95 03/05/2018 [facility] Systolic (mm Hg) 126 03/05/2018 [facility] Diastolic (mm Hg) 81 03/05/2018 [facility] Encounters Location Location Details Encounter Type Encounter Number Reason For Visit Attending Provider ADM Date DC Date Status Source [facility] Phone Message [id number] 02/20/2018 02/22/2018 [facility] Phone Message [id number] 02/27/2018 03/01/2018 [facility] Phone Message [id number] 02/27/2018 03/01/2018 [facility] Outpatient [id number] SIGMUND ANDRADE 03/05/2018 Active [facility] Outpatient [id number] DAVIAN OCONNOR 03/05/2018 Active [facility] [place] [id number] Sigmund Andrade 03/05/2018 03/06/2018 [facility] [id number] Arin Ureña 03/05/2018 03/05/2018 [facility] Phone Message [id number] 04/09/2018 04/11/2018 [facility] Outpatient [id number] DAVIAN OCONNOR 04/09/2018 Active [facility] [place] [id number] Davian Oconnor 04/09/2018 04/10/2018 [facility] Outpatient [id number] DAVIAN OCONNOR 04/11/2018 Active [facility] Inpatient [id number] Davian Oconnor 04/11/2018 04/12/2018 [facility] TM Phone Message [id number] 04/16/2018 04/18/2018 [facility] Outpatient [id number] DAVIAN OCONNOR 04/23/2018 Active [facility] [place] [id number] Davian Oconnor 04/23/2018 04/24/2018 [facility] [place] [facility] Imaging [facility] [id number] Davian Oconnor 04/24/2018 04/25/2018 [facility] Phone Message [id number] 04/26/2018 04/28/2018 [facility] [place] [facility] Phone Message [id number] 04/26/2018 04/28/2018 [facility] [place] [facility] Phone Message [id number] 05/03/2018 05/05/2018 [facility] [place] [facility] Outpatient [id number] DAVIAN OCONNOR 05/14/2018 Active [facility] Procedures Procedure Code Date Perfomer Comments Source Knee replacement<sup>1</sup> [id number] bilateral 06/2008 and 09/2008 [facility] [place] [facility] Stent, coronary<sup>2</sup> [id number] 1997, 2009, x2 2013 [facility] [place] [facility] Colonoscopy [id number] RADHA [place] Knee replacement<sup>1</sup> [id number] bilateral 06/2008 and 09/[facility] [place] St[facility], coronary<sup>2</sup> [id number] 1997, 2009, x2 [facility] [place] [facility] removal of wisdom tooth [id number] [facility] [place] Colonoscopy [id number] [facility] [place] Neuro Surgical removal of wisdom tooth [id number] [facility] [place] [facility] Colonoscopy [id number] [facility] Knee replacement<sup>1</sup> [id number] bilateral 06/2008 and 09/2008 [facility] Stent, coronary<sup>2</sup> [id number] 1997, 2009, x2 2013 [facility] Surgical removal of wisdom tooth [id number] [facility]
--- OUTSIDE RECORDS SUMMARY | 2018-09-16 06:50 | XMS REPORT | Summary of Care ---
Author Author [facility] Organization [facility] Address Unknown Phone Unavailable Encounter HQ Encntr_alias(FIN) [id number] Date(s): 02/20/18 - 02/21/18 [facility] [address], [address] [place], [place] [address] [phone] Vital Signs [...]
--- OUTSIDE RECORDS SUMMARY | 2018-09-16 06:50 | XMS REPORT | Summary of Care ---
Author Author [facility] Organization [facility] Address Unknown Phone Unavailable Encounter DENISHA Medina(CHRISTIN) [id number] Date(s): 04/11/18 - 04/12/18 [facility] [address] [employer] provided by [employer] [facility] [employer] [place] [address]- Discharge Disposition: Home or Self Care Attending Physician: Ian Oconnor MD Admitting Physician: Braydon Cuba MD Referring Physician: Ian Oconnor MD Vital Signs 1 2 3 Most recent to oldest [Reference Range]: 177.8 cm (04/11/18 12:27 PM) 177.8 cm (04/11/18 7:07 AM) 274.32 cm (04/09/18 2:47 PM) Height 98 DegF (04/11/18 4:00 PM) Temperature Oral [96.4-99.1 DegF] 122/81 mmHg (04/12/18 7:00 AM) 126/65 mmHg (04/12/18 6:00 AM) 107/58 mmHg (04/12/18 4:00 AM) Blood Pressure [90-140/60-90 mmHg] 45 BRMIN *HI* (04/12/18 7:00 AM) 36 BRMIN *HI* (04/12/18 6:00 AM) 18 BRMIN (04/12/18 4:00 AM) Respiratory Rate [14-20 BRMIN] 70 bpm (04/11/18 7:07 AM) Peripheral Pulse Rate [60-100 bpm] 96.364 kg (04/11/18 12:27 PM) 97.273 kg (04/11/18 7:07 AM) 97.003 kg (04/09/18 2:46 PM) Weight 30.48 m2 (04/11/18 12:27 PM) 30.77 m2 (04/11/18 7:07 AM) 30.68 m2 (04/09/18 2:46 PM) Body Mass Index Problem List Condition Effective Dates Status Health Status Informant Chest Resolved pain(Confirmed) Simple Active obesity(Confirmed) Allergies, Adverse Reactions, Alerts Substance Reaction Severity Status doxycycline Active Astelin Active NexIUM Astelin Active Medications acetaminophen (ANES) Route: IV, Drug form: INJ, ONCE, Stop date: 04/11/18 9:45:00 CDT Start Date: 04/11/18 Stop Date: 04/11/18 Status: Completed ANES fentaNYL 25 microgram, Route: IVP, Q5Min, Dosing Weight 97.273, kg, PRN Pain Score 4-6, P riority: Routine, Start date: 04/11/18 9:32:00 CDT, Duration: 4 doses or times, Stop date: Limited # of times Start Date: 04/11/18 Stop Date: 04/11/18 Status: Discontinued ANES flumazenil 0.2 mg, Route: IVP, PRN, Dosing Weight 97.273, kg, PRN Benzodiazepine Reversal, Initial dose, Start date: 04/11/18 9:32:00 CDT, Duration: 30 day, Stop date: 9:31:00 CDT Start Date: 04/11/18 Stop Date: 04/11/18 Status: Discontinued ANES HYDROmorphone 0.5 mg, Route: IVP, Q5Min, Dosing Weight 97.273, kg, PRN Pain Score 7-10, Start date: 04/11/18 9:32:00 CDT, Duration: 4 doses or times, Stop date: Limited # of times Start Date: 04/11/18 Stop Date: 04/11/18 Status: Discontinued ANES labetalol 10 mg, Route: IVP, Q5Min, Dosing Weight 97.273, kg, PRN Elevated BP, Start date: 04/11/18 9:32:00 CDT, Duration: 5 doses or times, Stop date: Limited # of times Start Date: 04/11/18 Stop Date: 04/11/18 Status: Discontinued ANES metoprolol 1 mg, Route: IVP, Q5Min, Dosing Weight 97.273, kg, PRN Elevated BP, Start date: 04/11/18 9:32:00 CDT, Duration: 5 doses or times, Stop date: Limited # of times Start Date: 04/11/18 Stop Date: 04/11/18 Status: Discontinued ANES naloxone 0.4 mg, Route: IVP, Q2MIN, Dosing Weight 97.273, kg, PRN Narcotic Reversal, Star t date: 04/11/18 9:32:00 CDT, Duration: 8 doses or times, Stop date: Limited # o f times Start Date: 04/11/18 Stop Date: 04/11/18 Status: Discontinued ANES ondansetron 4 mg, Route: IVP, ONCE, Dosing Weight 97.273, kg, PRN Nausea & Vomiting, Start date: 04/11/18 9:32:00 CDT Start Date: 04/11/18 Stop Date: 04/11/18 Status: Completed ANES oxyCODONE 5 mg, Route: PO, Drug form: TAB, Q4H, Dosing Weight 97.273, kg, PRN Pain Score 4 -6, Start date: 04/11/18 9:32:00 CDT, Duration: 30 day, Stop date: 05/11/18 9:31 :00 CDT Start Date: 04/11/18 Stop Date: 04/11/18 Status: Discontinued Benadryl 25 mg, 1 cap, Route: PO, Drug form: CAP, TID, Dosing Weight 97.273, kg, PRN Itch ing, Start date: 04/11/18 9:24:00 CDT, Duration: 30 day, Stop date: 05/11/18 9:2 3:00 CDT Notes: (Same as: Benadryl) Start Date: 04/11/18 Stop Date: 04/12/18 Status: Discontinued bisacodyl 10 mg, 1 supp, Route: MS, Drug form: SUPP, Daily, Dosing Weight 97.273, kg, PRN Constipation, Start date: 04/11/18 9:24:00 CDT, Duration: 30 day, Stop date: 9:23:00 CDT Notes: (Same As: Dulcolax, Bisco-Lax) Start Date: 04/11/18 Stop Date: 04/12/18 Status: Discontinued ceFAZolin (ANES) Route: IV, Drug form: INJ, ONCE, Stop date: 04/11/18 10:10:00 CDT Start Date: 04/11/18 Stop Date: 04/11/18 Status: Completed ceFAZolin (SCIP) 2 gm, 20 mL, Route: IV, Drug form: SOLN, Q8H, Dosing Weight 97.273, kg, Start da te: 04/11/18 17:00:00 CDT, Duration: 24 hr, Stop date: 04/12/18 9:00:00 CDT, ABX Indication: Surgical Prophylaxis Notes: (Same as Ancef) Start Date: 04/11/18 Stop Date: 04/12/18 Status: Completed ceFAZolin + sterile water 20 mL 2 gm, Route: IV, PRE OP, Start date: 04/11/18 4:00:00 CDT, Duration: 1 day, Stop date: 04/12/18 3:59:00 CDT, ABX Indication: Surgical Prophylaxis Notes: (Same As: Ancef, Kefzol) MEDICATION WASTE Product Size: 1000 mgP roduct Wasted: ___ mg Start Date: 04/11/18 Stop Date: 04/12/18 Status: Discontinued Chloraseptic 1.4% spray 1 spray, Route: TOP, Daily, Drug form: SPRY, PRN Sore Throat, Start date: 9:24:00 CDT, Duration: 30 day, Stop date: 05/11/18 9:23:00 CDT Notes: Chloraseptic [place](Same as: Chloraseptic, Sore Throat [place])WASTE: F/P - Black; E - Municipal Trash Bin Start Date: 04/11/18 Stop Date: 04/12/18 Status: Discontinued Crestor 40 mg, 4 tab, Route: PO, Drug form: TAB, Bedtime, Dosing Weight 97.273, kg, Star t date: 04/11/18 21:00:00 CDT, Duration: 30 day, Stop date: 05/10/18 21:00:00 CD T Notes: (Same As: Crestor) Start Date: 04/11/18 Stop Date: 04/12/18 Status: Discontinued dexamethasone (ANES) Route: IV, Drug form: INJ, ONCE, Stop date: 04/11/18 9:50:00 CDT Start Date: 04/11/18 Stop Date: 04/11/18 Status: Completed Dilaudid 0.5 mg, 0.25 mL, Route: IVP, Drug form: INJ, Q3H, Dosing Weight 97.273, kg, PRN Pain Score 7-10, Start date: 04/11/18 9:24:00 CDT, Duration: 30 day, Stop date: 05/11/18 9:23:00 CDT Notes: Same as Dilaudid Start Date: 04/11/18 Stop Date: 04/12/18 Status: Discontinued Diovan HCT 25 mg-320 mg oral tablet 1 tab, Route: PO, Drug Form: TAB, Dosing Weight 97.273, kg, Daily, Start date: 0 04/12/18 9:00:00 CDT, Duration: 30 day, Stop date: 05/11/18 9:00:00 CDT Start Date: 04/12/18 Stop Date: 04/11/18 Status: Deleted docusate 50 mg, 1 cap, Route: PO, Drug form: CAP, BID, Dosing Weight 97.273, kg, Start da te: 04/11/18 17:00:00 CDT, Duration: 30 day, Stop date: 05/11/18 9:00:00 CDT, Pe diatric Dosing Notes: (Same as: Colace) (Do Not Crush) Start Date: 04/11/18 Stop Date: 04/12/18 Status: Discontinued docusate sodium 100 mg oral capsule 100 mg=1 cap, PO, Q12H, # 28 cap, 0 Refill(s) Start Date: 04/12/18 Stop Date: 04/26/18 Status: Ordered ePHEDrine (ANES) Route: IV, Drug form: INJ, ONCE, Stop date: 04/11/18 9:40:00 CDT Start Date: 04/11/18 Stop Date: 04/11/18 Status: Completed famotidine 40 mg, 2 tab, Route: PO, Drug form: TAB, Bedtime, Start date: 04/11/18 21:00:00 CDT, Duration: 30 day, Stop date: 05/10/18 21:00:00 CDT Notes: (Same as: Pepcid) Start Date: 04/11/18 Stop Date: 04/12/18 Status: Discontinued famotidine (ANES) Route: IV, Drug form: INJ, ONCE, Stop date: 04/11/18 9:50:00 CDT Start Date: 04/11/18 Stop Date: 04/11/18 Status: Completed fentaNYL (ANES) Route: IV, Drug form: INJ, ONCE, Stop date: 04/11/18 9:50:00 CDT Start Date: 04/11/18 Stop Date: 04/11/18 Status: Completed finasteride 5 mg, 1 tab, Route: PO, Drug form: TAB, Bedtime, Dosing Weight 97.273, kg, Start date: 04/11/18 21:00:00 CDT, Duration: 30 day, Stop date: 05/10/18 21:00:00 CDT Notes: (Same as: Proscar) Start Date: 04/11/18 Stop Date: 04/12/18 Status: Discontinued Flomax 0.4 mg, 1 cap, Route: PO, Drug form: CAP, Daily, Dosing Weight 97.273, kg, Start date: 04/12/18 9:00:00 CDT, Duration: 30 day, Stop date: 05/11/18 9:00:00 CDT Notes: (Same As: Flomax) Start Date: 04/12/18 Stop Date: 04/12/18 Status: Discontinued Flomax 0.4 mg, Route: PO, Daily, Dosing Weight 97.273, kg, Priority: NOW, Start date: 0 04/11/18 9:24:00 CDT, Duration: 30 day, Stop date: 05/11/18 9:00:00 CDT Start Date: 04/11/18 Stop Date: 04/11/18 Status: Discontinued gabapentin 300 mg, PO, BID Start Date: 04/09/18 Stop Date: 04/11/18 Status: Discontinued gabapentin 300 mg, 1 cap, Route: PO, Drug form: CAP, BID, Dosing Weight 97.273, kg, Start d ate: 04/11/18 17:00:00 CDT, Duration: 30 day, Stop date: 05/11/18 9:00:00 CDT Notes: (Same as: Neurontin) Start Date: 04/11/18 Stop Date: 04/12/18 Status: Discontinued gabapentin 300 mg oral capsule 300 mg=1 cap, PO, TID, 0 Refill(s) Start Date: 04/11/18 Status: Ordered glycopyrrolate (ANES) Route: IV, Drug form: INJ, ONCE, Stop date: 04/11/18 10:55:00 CDT Start Date: 04/11/18 Stop Date: 04/11/18 Status: Completed hydrALAZINE 20 mg, 1 mL, Route: IVP, Drug form: INJ, Q4H, Dosing Weight 97.273, kg, PRN Hype rtension, Start date: 04/11/18 9:24:00 CDT, Duration: 30 day, Stop date: 8 9:23:00 CDT Notes: (Same as: Apresoline) Start Date: 04/11/18 Stop Date: 04/12/18 Status: Discontinued hydrochlorothiazide 25 mg oral tablet 25 mg, 1 tab, Route: PO, Drug form: TAB, Daily, Start date: 04/12/18 9:00:00 CDT , Duration: 30 day, Stop date: 05/11/18 9:00:00 CDT Notes: (Same as: Hydrodiuril) With food. Start Date: 04/12/18 Stop Date: 04/12/18 Status: Discontinued isosorbide dinitrate 15 mg, 3 tab, Route: PO, Drug form: TAB, Daily, Dosing Weight 97.273, kg, Start date: 04/12/18 9:00:00 CDT, Duration: 30 day, Stop date: 05/11/18 9:00:00 CDT Notes: (Same as:Isordil) Take on empty stomach/ full glass of water Start Date: 04/12/18 Stop Date: 04/12/18 Status: Discontinued isosorbide dinitrate 15 mg, PO, Daily Start Date: 04/09/18 Status: Ordered labetalol 10 mg, 2 mL, Route: IVP, Drug form: INJ, Q15Min, Dosing Weight 97.273, kg, PRN H ypertension, Start date: 04/11/18 9:24:00 CDT, Duration: 3 doses or times, Stop date: 05/10/18 0:00:00 CDT Start Date: 04/11/18 Stop Date: 04/12/18 Status: Discontinued Lactated Ringers Injection IV (ANES) 1000 mL Route: IV, Total Volume: 1,000, Start date: 04/11/18 8:00:00 CDT, Stop date: 9:00:00 CDT Start Date: 04/11/18 Stop Date: 04/11/18 Status: Completed lidocaine (ANES) Route: IV, Drug form: INJ, ONCE, Stop date: 04/11/18 9:50:00 CDT Start Date: 04/11/18 Stop Date: 04/11/18 Status: Completed melatonin 3 mg oral tablet 3 mg, 1 tab, Route: PO, Drug Form: TAB, Dosing Weight 97.273, kg, Bedtime, PRN a s needed for insomnia, Start date: 04/11/18 9:24:00 CDT, Duration: 30 day, Stop date: 05/11/18 9:23:00 CDT Notes: (Same as: Melatonin) Start Date: 04/11/18 Stop Date: 04/12/18 Status: Discontinued metoprolol 100 mg oral tablet, extended release 100 mg=1 tab, PO, BID, 0 Refill(s) Start Date: 04/11/18 Status: Ordered metoprolol extended release 75 mg, 3 tab, Route: PO, Drug form: ERTAB, BID, Start date: 04/11/18 21:00:00 CD T, Duration: 30 day, Stop date: 05/11/18 9:00:00 CDT Notes: (Same as: Toprol XL) Do Not Crush Start Date: 04/11/18 Stop Date: 04/12/18 Status: Discontinued midazolam (ANES) Route: IV, Drug form: SOLN, ONCE, Stop date: 04/11/18 9:50:00 CDT Start Date: 04/11/18 Stop Date: 04/11/18 Status: Completed morphine Sulfate (ANES) Route: IV, Drug form: INJ, ONCE, Stop date: 04/11/18 10:10:00 CDT Start Date: 04/11/18 Stop Date: 04/11/18 Status: Completed Multiple Vitamins with Minerals oral tablet 1 tab, Route: PO, Drug Form: TAB, Dosing Weight 97.273, kg, Daily, Start date: 0 04/12/18 9:00:00 CDT, Duration: 30 day, Stop date: 05/11/18 9:00:00 CDT Notes: (Same as:Thera-M, Theragran-M)WASTE: F/P - Black; E - Municipal Trash Bin Give with food. Start Date: 04/12/18 Stop Date: 04/12/18 Status: Discontinued neostigmine (ANES) Route: IV, Drug form: INJ, ONCE, Stop date: 04/11/18 10:55:00 CDT Start Date: 04/11/18 Stop Date: 04/11/18 Status: Completed Upperco 10/325 oral tablet 2 tab, Route: PO, Drug Form: TAB, Dosing Weight 97.273, kg, Q4H, PRN Pain Score 4-6, Start date: 04/11/18 9:24:00 CDT, Duration: 30 day, Stop date: 05/11/18 9:2 3:00 CDT Notes: Do not exceed 4gm/day of acetaminophen. (Same as: Upperco 325/10) Start Date: 04/11/18 Stop Date: 04/12/18 Status: Discontinued Upperco 10/325 oral tablet 1 tab, Route: PO, Drug Form: TAB, Dosing Weight 97.273, kg, Q4H, PRN Pain Score 1-3, Start date: 04/11/18 9:24:00 CDT, Duration: 30 day, Stop date: 05/11/18 9:2 3:00 CDT Notes: Do not exceed 4gm/day of acetaminophen. (Same as: Upperco 325/10) Start Date: 04/11/18 Stop Date: 04/12/18 Status: Discontinued Upperco 10/325 oral tablet 1 tab, PO, Q4H, PRN Pain Score 4-6, X 14 day, # 60 tab, 0 Refill(s) Start Date: 04/12/18 Stop Date: 04/26/18 Status: Ordered ondansetron 4 mg, 2 mL, Route: IVP, Drug form: INJ, Q6H, Dosing Weight 97.273, kg, PRN Nause a & Vomiting, Start date: 04/11/18 9:24:00 CDT, Duration: 30 day, Stop date: 05/11/18 9:23:00 CDT, >/=4 years, Pediatric Dosing Notes: (Same as: Zofran) MEDICATION WASTE Product Size: 4 mgProduct Was jayesh: ___ mg Start Date: 04/11/18 Stop Date: 04/12/18 Status: Discontinued ondansetron (ANES) Route: IV, Drug form: INJ, ONCE, Stop date: 04/11/18 9:50:00 CDT Start Date: 04/11/18 Stop Date: 04/11/18 Status: Completed Phenergan 12.5 mg oral tablet 12.5 mg=1 tab, PO, Q6H, PRN Nausea & Vomiting, # 12 tab, 0 Refill(s) Start Date: 04/12/18 Stop Date: 04/15/18 Status: Ordered phenylephrine (ANES) Route: IV, Drug form: INJ, ONCE, Stop date: 04/11/18 9:40:00 CDT Start Date: 04/11/18 Stop Date: 04/11/18 Status: Completed potassium chloride 10 mEq oral tablet, extended release 10 mEq, 1 tab, Route: PO, Drug form: ERTAB, Daily, Dosing Weight 97.273, kg, Sta rt date: 04/12/18 9:00:00 CDT, Duration: 30 day, Stop date: 05/11/18 9:00:00 CDT Notes: (Same as: K-Dur 10)"Do Not Crush" With food and full glass of water Start Date: 04/12/18 Stop Date: 04/12/18 Status: Discontinued propofol (ANES) Route: IV, Drug form: INJ, ONCE, Stop date: 04/11/18 9:50:00 CDT Start Date: 04/11/18 Stop Date: 04/11/18 Status: Completed Protonix 40 mg, 1 tab, Route: PO, Drug form: ECTAB, BID-Before Meals, Dosing Weight 97.27 3, kg, Start date: 04/11/18 16:30:00 CDT, Duration: 30 day, Stop date: 05/11/18 7:30:00 CDT Notes: Tablet should not be chewed or crushed.(Same as: Protonix) Start Date: 04/11/18 Stop Date: 04/12/18 Status: Discontinued Pseudoephedrine HCL Pseudoephedrine HCL, 30 mg=, PO, Daily Start Date: 04/09/18 Status: Ordered Pseudoephedrine HCL Pseudoephedrine HCL, 30 mg, Route: PO, Daily, 04/12/18 9:00:00 CDT, Duration: 30 day, Stop date: 05/11/18 9:00:00 CDT Start Date: 04/12/18 Stop Date: 04/12/18 Status: Discontinued Ranexa 500 mg oral tablet, extended release 500 mg, 1 tab, Route: PO, Drug form: TAB, BID, Dosing Weight 97.273, kg, Start d ate: 04/11/18 17:00:00 CDT, Duration: 30 day, Stop date: 05/11/18 9:00:00 CDT Notes: Same as Ranexa"Do Not Crush" Start Date: 04/11/18 Stop Date: 04/12/18 Status: Discontinued Robaxin 500 mg, 1 tab, Route: PO, Drug form: TAB, TID, Dosing Weight 97.273, kg, PRN Spa sm, Start date: 04/11/18 9:24:00 CDT, Duration: 30 day, Stop date: 05/11/18 9:23 :00 CDT Notes: (Same as:Robaxin) Start Date: 04/11/18 Stop Date: 04/12/18 Status: Discontinued rocuronium (ANES) Route: IV, Drug form: INJ, ONCE, Stop date: 04/11/18 9:50:00 CDT Start Date: 04/11/18 Stop Date: 04/11/18 Status: Completed Saline Flush 0.9% 10 ml, Route: IVP, Drug Form: INJ, Dosing Weight 97.273, kg, PRN, PRN Line Flush , Start date: 04/11/18 9:24:00 CDT, Duration: 30 day, Stop date: 05/11/18 9:23:0 0 CDT Notes: (Same as: BD Posiflush) Start Date: 04/11/18 Stop Date: 04/12/18 Status: Discontinued Saline Flush 0.9% 10 ml, Route: IVP, Drug Form: INJ, Dosing Weight 97.273, kg, Q12H, Start date: 0 04/11/18 21:00:00 CDT, Duration: 30 day, Stop date: 05/11/18 9:00:00 CDT Notes: (Same as: BD Posiflush) Start Date: 04/11/18 Stop Date: 04/12/18 Status: Discontinued senna 8.6 mg, 1 tab, Route: PO, Drug Form: TAB, Dosing Weight 97.273, kg, BID, Start d ate: 04/11/18 17:00:00 CDT, Duration: 30 day, Stop date: 05/11/18 9:00:00 CDT Notes: (Same as: Senokot) Start Date: 04/11/18 Stop Date: 04/12/18 Status: Discontinued sugammadex 200 mg, 2 mL, Route: IV, Drug form: SOLN, ONCE, Start date: 04/11/18 10:46:00 CD T, Stop date: 04/11/18 10:46:00 CDT Notes: (Same as: Bridion) Start Date: 04/11/18 Stop Date: 04/11/18 Status: Ordered sugammadex (ANES) Route: IV, Drug form: SOLN, ONCE, Stop date: 04/11/18 11:04:00 CDT Start Date: 04/11/18 Stop Date: 04/11/18 Status: Completed tramadol 50 mg oral tablet 50 mg=1 tab, PO, Q4H, PRN Pain Score 1-3, X 14 day, # 50 tab, 0 Refill(s) Start Date: 04/12/18 Stop Date: 04/26/18 Status: Ordered Tylenol 650 mg, 2 tab, Route: PO, Drug form: TAB, Q6H, Dosing Weight 97.273, kg, PRN Kari n 1-3/Temp > 100.4 F, Start date: 04/11/18 9:24:00 CDT, Duration: 30 day, Stop date: 05/11/18 9:23:00 CDT Notes: Do not exceed 4 gm/day. (Same as: Tylenol) Start Date: 04/11/18 Stop Date: 04/12/18 Status: Discontinued valsartan 320 mg, 2 tab, Route: PO, Drug form: TAB, Daily, Start date: 04/12/18 9:00:00 CD T, Duration: 30 day, Stop date: 05/11/18 9:00:00 CDT Notes: Same as Diovan Start Date: 04/12/18 Stop Date: 04/12/18 Status: Discontinued vasopressin (ANES) Route: IV, Drug form: INJ, ONCE, Stop date: 04/11/18 10:25:00 CDT Start Date: 04/11/18 Stop Date: 04/11/18 Status: Completed Zantac 300 mg, PO, Bedtime Start Date: 04/09/18 Status: Ordered Zantac 300 mg, Route: PO, Bedtime, Dosing Weight 97.273, kg, Start date: 04/11/18 21:00 :00 CDT, Duration: 30 day, Stop date: 05/10/18 21:00:00 CDT Start Date: 04/11/18 Stop Date: 04/11/18 Status: Deleted Zetia 10 mg, 1 tab, Route: PO, Drug form: TAB, Daily, Dosing Weight 97.273, kg, Start date: 04/12/18 9:00:00 CDT, Duration: 30 day, Stop date: 05/11/18 9:00:00 CDT Notes: (Same as: Zetia) Start Date: 04/12/18 Stop Date: 04/12/18 Status: Discontinued Zofran 4 mg oral tablet 4 mg=1 tab, PO, TID, PRN Nausea & Vomiting, # 12 tab, 0 Refill(s) Start Date: 04/12/18 Stop Date: 04/15/18 Status: Ordered Results No data available for this section Immunizations No data available for this section Procedures Procedure Date Related Diagnosis Body Site Status Colonoscopy Completed Knee replacement1 Completed Stent, coronary2 Completed Surgical removal of wisdom tooth Completed 1bilateral 06/2008 and 09/2008 [id number], 2010, x2 2014 Social History Social History Type Response Substance Abuse Use: None. Alcohol Current, Frequency: Daily. Previous treatment: None. Smoking Status Former smoker; Type: Cigarettes; Exposure to Tobacco Smoke None; Cigarette Smoking Last 365 Days No; Reg Smoking Cessation Counseling No1 entered on: 04/11/18 1Quit smoking 10 years ago Assessment and Plan Extracted from: Title: [facility] surgery note Author: Tramaine Hood MD Date: 04/12/18 Subjective: some pain, controlled Objective: Vitals and Temp: VitalsTmp(F)[id number] 04/12 04:[id number]--- 04/12 03:00----[id number]--- 04/12 02:00----[id number]--- 04/12 01:00----[id number]--- 04/12 00:[id number]--- 24 Hr Tmax: 98F (36.67c) at 04/12 00:00Vital Signs are the last 5 in the past 48 hours. General: no acute distress CV: RRR Pulm: breathing comfortably on room air, CTAB Abd: soft, nontender, nondistended, +BS; small incision c/d/i x 2 MSK: all compartments soft Neuro: Alert and oriented times 3, nonfocal exam Medications (50) Active Scheduled Meds (18): 04/11/18 docusate 50 mg PO BID 04/12/18 ezetimibe (Zetia) 10 mg PO Daily 04/11/18 famotidine 40 mg PO Bedtime 04/11/18 finasteride 5 mg PO Bedtime 04/11/18 gabapentin 300 mg PO BID 04/12/18 hydrochlorothiazide (hydrochlorothiazide 25 mg oral tablet) 25 mg PO Daily 04/12/18 isosorbide dinitrate 15 mg PO Daily 04/11/18 metoprolol (metoprolol extended release) 75 mg PO BID 04/12/18 multivitamin with minerals (Multiple Vitamins with Minerals oral tablet) 1 tab PO Daily 04/12/18 non-formulary (Pseudoephedrine HCL) 30 mg PO Daily 04/11/18 pantoprazole (Protonix) 40 mg PO BID-Before Meals 04/12/18 potassium chloride (potassium chloride 10 mEq oral tablet, extended release) 10 mEq PO Daily 04/11/18 ranolazine (Ranexa 500 mg oral tablet, extended release) 500 mg PO BID 04/11/18 rosuvastatin (Crestor) 40 mg PO Bedtime 04/11/18 senna 8.6 mg PO BID 04/11/18 sodium chloride (Saline Flush 0.9%) 10 ml IVP Q12H 04/12/18 tamsulosin (Flomax) 0.4 mg PO Daily 04/12/18 valsartan 320 mg PO Daily Unscheduled Meds (1): 04/11/18 ceFAZolin + sterile water 20 mL 2 gm IV PRE OP 200 ml/hr PRN Meds (13): 04/11/18 acetaminophen-hydrocodone (Upperco 10/325 oral tablet) 1 tab PO Q4H 04/11/18 acetaminophen-hydrocodone (Upperco 10/325 oral tablet) 2 tab PO Q4H 04/11/18 acetaminophen (Tylenol) 650 mg PO Q6H 04/11/18 bisacodyl 10 mg MS Daily 04/11/18 diphenhydrAMINE (Benadryl) 25 mg PO TID 04/11/18 hydrALAZINE 20 mg IVP Q4H 04/11/18 hydromorphone (Dilaudid) 0.5 mg IVP Q3H 04/11/18 labetalol 10 mg IVP Q15Min 04/11/18 melatonin (melatonin 3 mg oral tablet) 3 mg PO Bedtime 04/11/18 methocarbamol (Robaxin) 500 mg PO TID 04/11/18 ondansetron 4 mg IVP Q6H 04/11/18 phenol topical (Chloraseptic 1.4% spray) 1 spray TOP Daily 04/11/18 sodium chloride (Saline Flush 0.9%) 10 ml IVP PRN One Time Meds (18): (Completed) acetaminophen (acetaminophen (ANES)) IV ONCE (Completed) ceFAZolin (ceFAZolin (ANES)) IV ONCE (Completed) dexamethasone (dexamethasone (ANES)) IV ONCE (Completed) ePHEDrine (ePHEDrine (ANES)) IV ONCE (Completed) famotidine (famotidine (ANES)) IV ONCE (Completed) fentaNYL (fentaNYL (ANES)) IV ONCE (Completed) glycopyrrolate (glycopyrrolate (ANES)) IV ONCE (Completed) lidocaine (lidocaine (ANES)) IV ONCE (Completed) midazolam (midazolam (ANES)) IV ONCE (Completed) morphine Sulfate (morphine Sulfate (ANES)) IV ONCE (Completed) neostigmine (neostigmine (ANES)) IV ONCE (Completed) ondansetron (ondansetron (ANES)) IV ONCE (Completed) phenylephrine (phenylephrine (ANES)) IV ONCE (Completed) propofol (propofol (ANES)) IV ONCE (Completed) rocuronium (rocuronium (ANES)) IV ONCE (Completed) sugammadex (sugammadex (ANES)) IV ONCE 04/11/18 (Ordered) sugammadex 200 mg IV ONCE (Completed) vasopressin (vasopressin (ANES)) IV ONCE Continuous Infusions: None (no lab data in past 24 hours) Active diagnoses: (Idiopathic) normal pressure hydrocephalus (G91.2) Assessment: pod 1 s/p lap assisted [employer] shunt placement Plan: - doing well from our standpoint - general surgery will sign off
--- OUTSIDE RECORDS SUMMARY | 2018-09-16 06:50 | XMS REPORT | Summary of Care ---
Author Author [facility] Organization [facility] Address Unknown Phone Unavailable Encounter HQ Carol(FIN) [phone] Date(s): 04/26/18 - 04/27/18 [facility] [address], [address] [place] [phone] Vital Signs No [...] wisdom tooth Completed 1bilateral 06/2008 and 09/2008 [id number], 2010, x2 2013 Social History Social History [...]
--- OUTSIDE RECORDS SUMMARY | 2018-09-16 06:50 | XMS REPORT | Summary of Care ---
Author Author [facility] Organization [facility] Address Unknown Phone Unavailable Encounter HQ Carol(FIN) [phone] Date(s): 04/16/18 - 04/17/18 [facility] [address], [address] [place], [place] [address] [phone] Vital [...] wisdom tooth Completed 1bilateral 06/2008 and 09/2008 [id number], 2010, x2 2013 Social History Social History [...]
--- OUTSIDE RECORDS SUMMARY | 2018-09-16 06:50 | XMS REPORT | Summary of Care ---
Author Author [facility] [place] [facility] Address Unknown Phone Unavailable Encounter DENISHA Medina(CHRISTIN) [id number] Date(s): 04/23/18 - 04/23/18 [facility] [place] [address], [address] [place], [place] [address] [id number] [phone] Discharge Disposition: Home or Self Care Attending Physician: Ian Oconnor MD Referring Physician: Arin Ureña MD Vital Signs Most recent to 1 oldest [Reference Range]: Height 177.8 cm (04/23/18 6:36 PM) Temperature Oral 98.0 DegF [96.4-99.1 DegF] (04/23/18 6:36 PM) Blood Pressure 122/80 mmHg [90-140/60-90 mmHg] (04/23/18 6:36 PM) Peripheral Pulse 92 bpm Rate [60-100 bpm] (04/23/18 6:36 PM) Weight 95.909 kg (04/23/18 6:36 PM) Body Mass Index 30.34 m2 (04/23/18 6:36 PM) Problem List Condition Effective Dates Status [...] wisdom tooth Completed 1bilateral 06/2008 and 09/2008 51206, 2009, x2 2013 Social History Social History [...]
--- OUTSIDE RECORDS SUMMARY | 2018-09-16 06:50 | XMS REPORT | Summary of Care ---
Author Author [facility] Outpatient Imaging [facility] [place] Address Unknown Phone Unavailable Encounter HQ Har_johnny(FIN) [id number] Date(s): 04/24/18 - 04/24/18 [facility] Outpatient [facility] [place] [id number] [place] [address], [address] [place] [address]- [phone] Discharge Disposition: Home or Self Care Attending Physician: Ian Oconnor MD Referring Physician: Ian Oconnor MD Vital Signs No data available for [...] wisdom tooth Completed 1bilateral 06/2008 and 09/2008 13926, 2010, x2 2013 Social History Social History [...]
[2018-09-16] MEDS ORDERED: TETANUS/DIPHTHERIA TOX ADULT 0.5 ML SYR IM ONE (07:00)
[2018-09-16 07:06] LABS: BASOPHILS % 0.3 % (0.0-1.0); EOSINOPHILS # (AUTO) 0.2 (0.0-0.4); EOSINOPHILS % 2.6 % (0.0-6.0); HEMATOCRIT 42.4 % (38.2-49.6); HEMOGLOBIN 14.4 g/dL (14.0-18.0); LYMPHOCYTES # (AUTO) 1.6 (1.0-3.2); LYMPHOCYTES % 23.8 % (18.0-39.1); MEAN CORPUSCULAR HEMOGLOBIN 30.7 pg (28-32); MEAN CORPUSCULAR VOLUME 90.4 fL (81-99); MONOCYTES # (AUTO) 0.5 (0.2-0.8); MONOCYTES % 8.3 % (4.4-11.3); NEUTROPHILS # (AUTO) 4.2 (2.1-6.9); NEUTROPHILS % 64.7 % (38.7-80.0); PLATELET COUNT 181 x10e3/uL (140-360); RED BLOOD COUNT 4.69 x10e6/uL (4.3-5.7); RED CELL DISTRIBUTION WIDTH 12.7 % (11.7-14.4)
[2018-09-16 07:15] LABS: INR 0.82; PROTHROMBIN TIME 12.1 seconds (11.9-14.5)
[2018-09-16 07:16] LABS: PARTIAL THROMBOPLASTIN TIME 28.8 seconds (23.8-35.5)
[2018-09-16 07:37] LABS: ALANINE AMINOTRANSFERASE 25 IU/L (0-55); ALBUMIN 3.7 g/dL (3.5-5.0); ALBUMIN/GLOBULIN RATIO 0.9 (0.8-2.0); ALKALINE PHOSPHATASE 90 IU/L (40-150); ANION GAP 14.6 mmol/L (8-16); BLOOD UREA NITROGEN 18 mg/dL (7-26); BUN/CREATININE RATIO 20 (6-25); CALCIUM 9.9 mg/dL (8.4-10.2); CARBON DIOXIDE 26 mmol/L (22-29); CHLORIDE 97 mmol/L (98-107); CREATINE KINASE 131 IU/L (30-200); CREATININE, SERUM 0.91 mg/dL (0.72-1.25); EST GLOMERULAR FILTRATION RATE > 60 ML/MIN (60-); GLUCOSE 110 mg/dL (74-118); MAGNESIUM 2.2 MG/DL (1.3-2.1); POTASSIUM 3.6 mmol/L (3.5-5.1); SODIUM 134 mmol/L (136-145)
--- NOTE | 2018-09-16 08:17 | Diagnostic Imaging Report ---
PROCEDURE: CHEST SINGLE (PORTABLE) COMPARISON: None. INDICATIONS: FALL FINDINGS: Low lung volumes with vascular crowding or subsegmental atelectasis in the dependent lower lobes. No airspace consolidation, pleural effusion, or pneumothorax. Tortuosity and atherosclerotic calcification of the thoracic aorta. Widening of the upper mediastinum likely reflects great vessel tortuosity and is accentuated by portable, AP technique and low lung volumes. No pulmonary edema. No acute osseous abnormality. Ventriculoperitoneal shunt catheter partially visualized traversing the right hemithorax. CONCLUSION: Low lung volumes without acute cardiopulmonary abnormality. Dictated by: Bo Rivera M.D. on 09/16/2018 at 8:27 Electronically approved by: Bo Rivera M.D. on 09/16/2018 at 8:27
[2018-09-16] MEDS: LIDOCAINE 1% W/EPINEPHRINE 20 ML VIAL INJ ONE (08:20)
--- NOTE | 2018-09-16 08:36 | Diagnostic Imaging Report ---
Examination: CT BRAIN WITHOUT CONTRAST History:Fall last night with head injury Comparison studies:Brain MRI performed November 13, 2017 Technique: Axial images were obtained from the skull base to the vertex. Coronal and sagittal images reconstructed from the axial data. Dose modulation, iterative reconstruction, and/or weight based adjustment of the mA/kV was utilized to reduce the radiation dose to as low as reasonably achievable. Intravenous contrast: None Findings: Scalp: Small left scalp hematoma and laceration. Bones: No fractures, blastic or lytic lesions. Brain sulci: Appropriate for age. Ventricles: Ventriculomegaly with a right parietal approach ventriculostomy catheter with distal tip in the body of the right lateral ventricle. The extracranial tubing is intact.. No hydrocephalus. Extra-axial space: No abnormalities. Parenchyma: There are periventricular and subcortical white matter areas of hypoattenuation, nonspecific. No masses, hemorrhage, or acute or chronic cortical based vascular insults. Sellar/suprasellar region: No abnormalities. Craniocervical junction: Patent foramen magnum. No Chiari one malformation. Incidental findings: None. Impression: 1. Small left scalp hematoma and laceration without radiopaque foreign body or associated calvarial fracture. 2. No acute intracranial abnormality, specifically, no intraparenchymal or extra-axial hemorrhage. 3. Unchanged ventriculomegaly with a new right parietal approach ventriculostomy catheter. 4. Unchanged moderate chronic microvascular ischemic change. Signed by: Dr. Leni Thomason M.D. on 09/16/2018 8:33 AM
--- NOTE | 2018-09-16 08:40 | Diagnostic Imaging Report ---
Examination: CT CERVICAL SPINE WITHOUT CONTRAST HISTORY:Fall with neck injury. COMPARISON:None. TECHNIQUE: Multidetector helical axial images were obtained without contrast from the foramen magnum to T1. Coronal and sagittal reformatted images were done. Bone and soft tissue windows were evaluated. Dose modulation, iterative reconstruction, and/or weight based adjustment of the mA/kV was utilized to reduce the radiation dose to as low as reasonably achievable. FINDINGS: Alignment:Straightening of normal lordosis with anterolisthesis of C3 on C4. Mild retrolisthesis of C4 on C5 and C5 on C6. Vertebrae: Normal height and density. No acute fracture, infection or neoplasm. Disc space heights: Mildly narrowed from C4 through C7. Caliber of spinal canal: Developmentally normal. Posterior fossa and craniocervical junction: Foramen magnum patent. No Chiari 1 malformation. Soft tissues: No abnormality. Degenerative changes: C2-C3: Mild left neural foraminal narrowing due to uncovertebral arthropathy. No right foraminal or canal stenosis. C3-C4: Asymmetric to the right disc osteophyte complex and bilateral uncovertebral and facet arthropathy result in moderate right and mild left neural foraminal narrowing. No canal stenosis. C4-C5: Diffuse disc osteophyte complex and bilateral uncovertebral arthropathy result in moderate right and mild left neural foraminal narrowing. No canal stenosis. C5-C6: Diffuse disc osteophyte complex and bilateral uncovertebral arthropathy result in moderate bilateral neural foraminal narrowing and mild canal stenosis. C6-C7: Diffuse disc osteophyte complex and bilateral uncovertebral arthropathy result in moderate bilateral neural foraminal narrowing. No canal stenosis. IMPRESSION: 1. No acute abnormality. 2. Degenerative changes, as above. 3. Grade I anterolisthesis of C3 on C4 and mild retrolisthesis of C4 on C5 and C5 on C6. Signed by: Dr. Leni Thomason M.D. on 09/16/2018 8:36 AM
[2018-09-16] MEDS ORDERED: SODIUM CHLORIDE 0.9% 1000ML 1,000 ML IV SCH (08:45)
[2018-09-16] MEDS ORDERED: BACITRACIN ZINC 0.9GM TP ONE (09:30)
[2018-09-16 09:34] VITALS: BP 107/85
== END 2018-09-16 10:20 | disposition home or self-care (01) ==
LOC: ER 06:45
DX: S01.81XA Laceration without foreign body of other part of head, initial encounter (principal); S80.01XA Contusion of right knee, initial encounter; W01.0XXA Fall on same level from slipping, tripping and stumbling without subsequent striking against object, initial encounter; Y92.009 Unspecified place in unspecified non-institutional (private) residence as the place of occurrence of the external cause; F10.120 Alcohol abuse with intoxication, uncomplicated; I10 Essential (primary) hypertension; Z95.5 Presence of coronary angioplasty implant and graft; Z79.02 Long term (current) use of antithrombotics/antiplatelets; Z98.2 Presence of cerebrospinal fluid drainage device; Z88.8 Allergy status to other drugs, medicaments and biological substances
CPT/HCPCS: 12013; 36415; 70450; 71045; 72125; 80053; 80320; 82550; 82553; 83735; 84484; 85025; 85610; 85730; 90471; 90714; 93005; 99284; J7030

== ENCOUNTER → 2019-03-11 | Outpatient (CLI) | payer MEDICARE, OTHER ==
[~2019-03-11] MED LIST changes: +DIATRIZOATE MEGL/DIATRIZOA SOD 30 ML BTL PO ONE; +IOPAMIDOL 370 MG/ML 200 ML INFUS..BTL INJ ONE; +SODIUM CHLORIDE 0.9% 50ML 50 ML ONE
[2019-03-11 15:04] LABS: BLOOD UREA NITROGEN 12 mg/dL (7-26); BUN/CREATININE RATIO 13 (6-25); CREATININE, SERUM 0.93 mg/dL (0.72-1.25); EST GLOMERULAR FILTRATION RATE > 60 ML/MIN (60-)
--- NOTE | 2019-03-11 16:31 | Diagnostic Imaging Report ---
EXAM: CT Abdomen and Pelvis WITH contrast INDICATION: Diverticulosis. COMPARISON: None. TECHNIQUE: Abdomen and pelvis were scanned utilizing a multidetector helical scanner from the lung base to the pubic symphysis after administration of IV contrast. Coronal and sagittal reformations were obtained. Routine protocol was performed. Scan was performed during portal venous phase. IV CONTRAST: 100 cc of Isovue-370. ORAL CONTRAST: Gastrografin COMPLICATIONS: None RADIATION DOSE: Total DLP: 895.7 mGy*cm Dose modulation, iterative reconstruction, and/or weight based adjustment of the mA/kV was utilized to reduce the radiation dose to as low as reasonably achievable. FINDINGS: LINES and TUBES: None. LOWER THORAX: Coronary atherosclerosis. HEPATOBILIARY: No evidence of focal lesion. No biliary ductal dilation. GALLBLADDER: No radio-opaque stones or sludge. No wall thickening. SPLEEN: No splenomegaly. PANCREAS: No focal masses or ductal dilatation. ADRENALS: No adrenal nodules KIDNEYS/URETERS: Kidneys enhance symmetrically. No evidence of hydronephrosis, solid mass, or stone. Subcentimeter left renal hypodensity is too small to characterize, but likely represents a cyst. GI TRACT: No evidence of wall thickening or distension. Appendix is normal. There is scattered sigmoid and descending colonic diverticulosis without CT evidence of diverticulitis. PELVIC ORGANS/BLADDER: There are two left sided bladder diverticula. Prostate is enlarged measuring up to 4.6 cm with associated calcifications. LYMPH NODES: No evidence of lymphadenopathy. VESSELS: There are moderate atherosclerotic calcifications in the aorta and branch vessels. PERITONEUM / RETROPERITONEUM: No free air or fluid. BONES AND SOFT TISSUES: No acute osseous abnormality. No suspicious lytic or blastic lesion. CONCLUSION: Scattered descending and sigmoid colonic diverticulosis without CT evidence of diverticulitis. Prostatomegaly with two left bladder diverticula. Signed by: Dr. Allen Malcolm MD on 03/11/2019 4:27 PM
== END ==
LOC: CT 13:54
PROVIDERS: ATTEND Internal Medicine Gastroenterology
DX: K57.30 Diverticulosis of large intestine without perforation or abscess without bleeding (principal)
CPT/HCPCS: 36415; 74177; 82565; 84520; Q9967

== ENCOUNTER 2019-03-19 12:00 | Emergency (ER) | payer MEDICARE, OTHER ==
[~2019-03-19] VITALS: Ht 180.3 cm; Wt 96.2 kg
[~2019-03-19 12:00] MED LIST changes: -FENTANYL CITRATE/PF 100MCG/2 ML INJ ONE; -GLUCAGON FOR INJ 1 MG VIAL ONE; -MIDAZOLAM HCL 2 MG/2 ML VIAL ONE; -PROPOFOL IV EMULSION 10 MG/ML 50 ML VIAL ONE
--- OUTSIDE RECORDS SUMMARY | 2019-03-19 12:04 | XMS REPORT | Clinical Summary ---
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 03/18/2018 Results * XR Knee 3 Vw Bilateral (11/06/2018 11:47 AM AGILITY INSTRUCTOR) Specimen Narrative Performed At [facility] Well fixed and aligned TKR Biateral [facility] Organization Address City/State/[facility] Phone Number [facility] [address] [place] [address] after 03/18/2018 Insurance Type Payer Benefit Subscriber ID Effective Phone Address Plan / Dates Group Medicare MEDICARE MEDICARE xxxxxxxxxxx 2018-P [place], PART A AND resent [place] B Commercial COMMERCIAL MISC [facility] xxxxxxxx 2018- COMMERCIAL Present Advance Directives Patient has advance care planning documents on file. For more information, kailey han contact: Gerardo Vargas [address] [place] [address]
--- OUTSIDE RECORDS SUMMARY | 2019-03-19 12:04 | XMS REPORT | Clinical Summary ---
Author Author [facility] Address Unknown Phone Unavailable Care Team Providers Care Steam Conditioner Filling Name Role Phone Jayme Daugherty PCP Unavailable [...] BLUE CROSS/BLUE SHIELD BCBS PPO xxxxxxxxxxxx PPO [phone] [address] [place] [address] CHOICE Advance Directives For more information, please contact: [facility] [address] [place] [address] [phone]- [phone] Date Inactivated Comments Code Status Date Activated [...]
[2019-03-19] MEDS ORDERED: TETANUS/DIPHTHERIA TOX ADULT 0.5 ML SYR IM ONE (12:15)
[2019-03-19] MEDS ORDERED: LIDOCAINE 1% W/EPINEPHRINE 20 ML VIAL INJ ONE (12:15)
--- NOTE | 2019-03-19 12:49 | Diagnostic Imaging Report ---
CT BRAIN WO HISTORY: Fall COMPARISON: Head CT 09/16/2018 Technique: Noncontrast axial scans were obtained from skull base to the vertex. Coronal and sagittal reconstructions obtained from the axial data. One or more of the following dose reduction techniques were used: Automated exposure control, adjustment of the mA and/or kV according to patient size, and/or utilization of iterative reconstruction technique. DISCUSSION: Scalp/Skull: Unremarkable. Brain sulci: Mildly prominent. Ventricles: Stable right parietal approach CANAL BOAT CAPTAIN shunt catheter terminates in the body of the right lateral ventricle. Mild supratentorial ventriculomegaly is unchanged. Extra-axial spaces: No masses or fluid collections. Carotid siphon calcifications are present. Parenchyma: Mild bilateral deep white matter hypodensity is likely chronic microvascular ischemic change. Otherwise, no masses, hemorrhage, or large vascular territory acute infarct. Dural sinuses: No abnormal densities. Sellar/Suprasellar region: Intact. Skull base: Intact. Incidental findings: None. IMPRESSION: 1. Stable mild supratentorial ventriculomegaly. Right parietal approach CANAL BOAT CAPTAIN shunt catheter is unchanged. 2. Otherwise, no acute intracranial abnormalities. 3. Mild supratentorial chronic microvascular ischemic change. Signed by: Dr. Nixon Gtz M.D. on 03/19/2019 12:45 PM
--- NOTE | 2019-03-19 12:52 | Diagnostic Imaging Report ---
CT CERVICAL SPINE WO HISTORY: Fall COMPARISON: Cervical spine CT 09/16/2018 TECHNIQUE: CT of the cervical spine without contrast. Sagittal and coronal reformations were created. One or more of the following dose reduction techniques were used: Automated exposure control, adjustment of the mA and/or kV according to patient size, and/or utilization of iterative reconstruction technique. FINDINGS: Cervical lordosis is straightened. There is no significant scoliosis. No fractures, compression deformity, or destructive osseous lesions are seen. The craniocervical junction is intact. No gross spinal canal masses are seen. The paravertebral and paraspinal soft tissues are unremarkable. Moderate lower cervical spondylosis is present. Multilevel bilateral facet arthrosis is most prominent on the right at C3-C4; there is associated grade 1 anterolisthesis of C3 on C4. Mild atlantoaxial arthrosis is present as well. Right-sided ORTHO ASSISTANT shunt catheter is partially visualized. There are mild calcifications in the carotid bulbs. IMPRESSION: 1. No acute osseous abnormalities. 2. Moderate lower cervical spondylosis. 3. Prominent right C3-C4 facet arthrosis with grade 1 anterolisthesis of C3 on C4. Signed by: Dr. Nixon Gtz M.D. on 03/19/2019 12:49 PM
== END 2019-03-19 14:00 | disposition home or self-care (01) ==
LOC: ER 12:00
DX: S01.01XA Laceration without foreign body of scalp, initial encounter (principal); W01.0XXA Fall on same level from slipping, tripping and stumbling without subsequent striking against object, initial encounter; Y93.89 Activity, other specified; Y92.238 Other place in hospital as the place of occurrence of the external cause; S06.890A Other specified intracranial injury without loss of consciousness, initial encounter
CPT/HCPCS: 70450; 72125; 90471; 90714; 99284

== ENCOUNTER → 2019-03-19 | Day surgery (SDC) | payer MEDICARE, OTHER ==
[~2019-03-19] MED LIST changes: +BENICAR HCT 401 EAC1 PO; -DIATRIZOATE MEGL/DIATRIZOA SOD 30 ML BTL PO ONE; +FENTANYL CITRATE/PF 100MCG/2 ML INJ ONE; +FINASTERIDE5 MG PO; +GLUCAGON FOR INJ 1 MG VIAL ONE; -IOPAMIDOL 370 MG/ML 200 ML INFUS..BTL INJ ONE; +MIDAZOLAM HCL 2 MG/2 ML VIAL ONE; +PANTOPRAZOLE SO40 MG PO; +POTASSIUM CL PO; +PROPOFOL IV EMULSION 10 MG/ML 50 ML VIAL ONE; +RAPATHA INJ; -SODIUM CHLORIDE 0.9% 50ML 50 ML ONE; +[UNRECOGNIZED DRUG - OTHER] PO
--- OUTSIDE RECORDS SUMMARY | 2019-03-19 07:02 | XMS REPORT | Continuity of Care Document ---
Author Author [facility] Interface Address Unknown Phone Unavailable Problems Problem Status Onset Date Classification Date Reported Comments Source (IDIOPATHIC) NORMAL PRESSURE HYDROCEPHAL Active 03/15/2018 [facility] Chest pain Resolved Problem 12/01/2018 [facility] Simple obesity Active Problem 12/01/2018 [facility] Medications Medication Details Route Status Patient Instructions Ordering Provider Order Date Source hydrochlorothiazide 25 mg oral tablet 25 mg, 1 tab, Route: PO, Drug form: TAB, Daily, Start date: 04/12/18 9:00:00 CDT, Duration: 30 day, Stop date: 05/11/18 9:00:00 CDTNotes: (Same as: Hydrodiuril) With food. Inactive 04/12/2018 [facility] Isosorbide Dinitrate 15 mg, 3 tab, Route: PO, Drug form: TAB, Daily, Dosing Weight 97.273, kg, Start date: 04/12/18 9:00:00 CDT, Duration: 30 day, Stop date: 05/11/18 9:00:00 CDTNotes: (Same as:Isordil) Take on empty stomach/ full glass of water Inactive 04/12/2018 [facility] Hydrochlorothiazide 25 MG / valsartan 320 MG Oral Tablet [Diovan HCT 320/25] 1 tab, Route: PO, Drug Form: TAB, Dosing Weight 97.273, kg, Daily, Start date: 04/12/18 9:00:00 CDT, Duration: 30 day, Stop date: 05/11/18 9:00:00 CDT No Longer Active 04/12/2018 [facility] Zetia 10 mg, 1 tab, Route: PO, Drug form: TAB, Daily, Dosing Weight 97.273, kg, Start date: 04/12/18 9:00:00 CDT, Duration: 30 day, Stop date: 05/11/18 9:00:00 CDTNotes: (Same as: Zetia) Inactive 04/12/2018 [facility] potassium chloride 10 mEq oral tablet, extended release 10 mEq, 1 tab, Route: PO, Drug form: ERTAB, Daily, Dosing Weight 97.273, kg, Start date: 04/12/18 9:00:00 CDT, Duration: 30 day, Stop date: 05/11/18 9:00:00 CDTNotes: (Same as: K-Dur 10) "Do Not Crush" With food and full glass of water Inactive 04/12/2018 [facility] Flomax 0.4 mg, 1 cap, Route: PO, Drug form: CAP, Daily, Dosing Weight 97.273, kg, Start date: 04/12/18 9:00:00 CDT, Duration: 30 day, Stop date: 05/11/18 9:00:00 CDTNotes: (Same As: Flomax) Inactive 04/12/2018 [facility] Pseudoephedrine HCL Pseudoephedrine HCL, 30 mg, Route: PO, Daily, 04/12/18 9:00:00 CDT, Duration: 30 day, Stop date: 05/11/18 9:00:00 CDT Inactive 04/12/2018 [facility] Multiple Vitamins with Minerals oral tablet 1 tab, Route: PO, Drug Form: TAB, Dosing Weight 97.273, kg, Daily, Start date: 04/12/18 9:00:00 CDT, Duration: 30 day, Stop date: 05/11/18 9:00:00 CDTNotes: (Same as:Thera-M, Theragran-M) WASTE: F/P - Black; E - Municipal Trash Bin Give with food. Inactive 04/12/2018 [facility] valsartan 320 mg, 2 tab, Route: PO, Drug form: TAB, Daily, Start date: 04/12/18 9:00:00 CDT, Duration: 30 day, Stop date: 05/11/18 9:00:00 CDTNotes: Same as Diovan Inactive 04/12/2018 [facility] Ondansetron 4 MG Oral Tablet [Zofran] 4 mg=1 tab, PO, TID, PRN Nausea & Vomiting, # 12 tab, 0 Refill(s) Active 04/12/2018 [facility] tramadol hydrochloride 50 MG Oral Tablet 50 mg=1 tab, PO, Q4H, PRN Pain Score 1-3, X 14 day, # 50 tab, 0 Refill(s) Active 04/12/2018 [facility] Promethazine Hydrochloride 12.5 MG Oral Tablet [Phenergan] 12.5 mg=1 tab, PO, Q6H, PRN Nausea & Vomiting, # 12 tab, 0 Refill(s) Active 04/12/2018 [facility] Acetaminophen 325 MG / Hydrocodone Bitartrate 10 MG Oral Tablet [Copake 10/325] 1 tab, PO, Q4H, PRN Pain Score 4-6, X 14 day, # 60 tab, 0 Refill(s) Active 04/12/2018 [facility] Docusate Sodium 100 MG Oral Capsule 100 mg=1 cap, PO, Q12H, # 28 cap, 0 Refill(s) Active 04/12/2018 [facility] Finasteride 5 mg, 1 tab, Route: PO, Drug form: TAB, Bedtime, Dosing Weight 97.273, kg, Start date: 04/11/18 21:00:00 CDT, Duration: 30 day, Stop date: 05/10/18 21:00:00 CDTNotes: (Same as: Proscar) No Longer Active 04/12/2018 [facility] Zantac 300 mg, Route: PO, Bedtime, Dosing Weight 97.273, kg, Start date: 04/11/18 21:00:00 CDT, Duration: 30 day, Stop date: 05/10/18 21:00:00 CDT Inactive 04/12/2018 [facility] famotidine 40 mg, 2 tab, Route: PO, Drug form: TAB, Bedtime, Start date: 04/11/18 21:00:00 CDT, Duration: 30 day, Stop date: 05/10/18 21:00:00 CDTNotes: (Same as: Pepcid) No Longer Active 04/12/2018 [facility] Crestor 40 mg, 4 tab, Route: PO, Drug form: TAB, Bedtime, Dosing Weight 97.273, kg, Start date: 04/11/18 21:00:00 CDT, Duration: 30 day, Stop date: 05/10/18 21:00:00 CDTNotes: (Same As: Crestor) No Longer Active 04/12/2018 [facility] Saline Flush 0.9% 10 ml, Route: IVP, Drug Form: INJ, Dosing Weight 97.273, kg, Q12H, Start date: 04/11/18 21:00:00 CDT, Duration: 30 day, Stop date: 05/11/18 9:00:00 CDTNotes: (Same as: BD Posiflush) No Longer Active 04/12/2018 [facility] metoprolol extended release 75 mg, 3 tab, Route: PO, Drug form: ERTAB, BID, Start date: 04/11/18 21:00:00 CDT, Duration: 30 day, Stop date: 05/11/18 9:00:00 CDTNotes: (Same as: Toprol XL) Do Not Crush No Longer Active 04/12/2018 [facility] gabapentin 300 mg, 1 cap, Route: PO, Drug form: CAP, BID, Dosing Weight 97.273, kg, Start date: 04/11/18 17:00:00 CDT, Duration: 30 day, Stop date: 05/11/18 9:00:00 CDTNotes: (Same as: Neurontin) No Longer Active 04/11/2018 [facility] 12 HR ranolazine 500 MG Extended Release Tablet [Ranexa] 500 mg, 1 tab, Route: PO, Drug form: TAB, BID, Dosing Weight 97.273, kg, Start date: 04/11/18 17:00:00 CDT, Duration: 30 day, Stop date: 05/11/18 9:00:00 CDTNotes: Same as Ranexa "Do Not Crush" No Longer Active 04/11/2018 [facility] Docusate 50 mg, 1 cap, Route: PO, Drug form: CAP, BID, Dosing Weight 97.273, kg, Start date: 04/11/18 17:00:00 CDT, Duration: 30 day, Stop date: 05/11/18 9:00:00 CDT, Pediatric DosingNotes: (Same as: Colace) (Do Not Crush) No Longer Active 04/11/2018 [facility] Cefazolin 2 gm, 20 mL, Route: IV, Drug form: SOLN, Q8H, Dosing Weight 97.273, kg, Start date: 04/11/18 17:00:00 CDT, Duration: 24 hr, Stop date: 04/12/18 9:00:00 CDT, ABX Indication: Surgical ProphylaxisNotes: (Same as Ancef) No Longer Active 04/11/2018 [facility] sennosides, MCC 8.6 mg, 1 tab, Route: PO, Drug Form: TAB, Dosing Weight 97.273, kg, BID, Start date: 04/11/18 17:00:00 CDT, Duration: 30 day, Stop date: 05/11/18 9:00:00 CDTNotes: (Same as: Senokot) No Longer Active 04/11/2018 [facility] Protonix 40 mg, 1 tab, Route: PO, Drug form: ECTAB, BID- Before Meals, Dosing Weight 97.273, kg, Start date: 04/11/18 16:30:00 CDT, Duration: 30 day, Stop date: 05/11/18 7:30:00 CDTNotes: Tablet should not be chewed or crushed. (Same as: Protonix) No Longer Active 04/11/2018 [facility] gabapentin 300 MG Oral Capsule 300 mg=1 cap, PO, TID, 0 Refill(s) Active 04/11/2018 [facility] metoprolol 100 mg oral tablet, extended release 100 mg=1 tab, PO, BID, 0 Refill(s) Active 04/11/2018 [facility] sugammadex (ANES) Route: IV, Drug form: SOLN, ONCE, Stop date: 04/11/18 11:04:00 CDT Inactive 04/11/2018 [facility] glycopyrrolate (ANES) Route: IV, Drug form: INJ, ONCE, Stop date: 04/11/18 10:55:00 CDT Inactive 04/11/2018 [facility] neostigmine (ANES) Route: IV, Drug form: INJ, ONCE, Stop date: 04/11/18 10:55:00 CDT Inactive 04/11/2018 [facility] sugammadex 200 mg, 2 mL, Route: IV, Drug form: SOLN, ONCE, Start date: 04/11/18 10:46:00 CDT, Stop date: 04/11/18 10:46:00 CDTNotes: (Same as: Bridion) Inactive 04/11/2018 [facility] vasopressin (ANES) Route: IV, Drug form: INJ, ONCE, Stop date: 04/11/18 10:25:00 CDT Inactive 04/11/2018 [facility] morphine Sulfate (ANES) Route: IV, Drug form: INJ, ONCE, Stop date: 04/11/18 10:10:00 CDT Inactive 04/11/2018 [facility] ceFAZolin (ANES) Route: IV, Drug form: INJ, ONCE, Stop date: 04/11/18 10:10:00 CDT Inactive 04/11/2018 [facility] dexamethasone (ANES) Route: IV, Drug form: INJ, ONCE, Stop date: 04/11/18 9:50:00 CDT Inactive 04/11/2018 [facility] ondansetron ([facility]) Route: IV, Drug form: INJ, ONCE, Stop date: 04/11/18 9:50:00 CDT Inactive 04/11/2018 [facility] fentaNYL ([facility]) Route: IV, Drug form: INJ, ONCE, Stop date: 04/11/18 9:50:00 CDT Inactive 04/11/2018 [facility] lidocaine (ANES) Route: IV, Drug form: INJ, ONCE, Stop date: 04/11/18 9:50:00 CDT Inactive 04/11/2018 [facility] rocuronium ([facility]) Route: IV, Drug form: INJ, ONCE, Stop date: 04/11/18 9:50:00 CDT Inactive 04/11/2018 [facility] propofol (ANES) Route: IV, Drug form: INJ, ONCE, Stop date: 04/11/18 9:50:00 CDT Inactive 04/11/2018 [facility] midazolam (ANES) Route: IV, Drug form: SOLN, ONCE, Stop date: 04/11/18 9:50:00 CDT Inactive 04/11/2018 [facility] famotidine ([facility]) Route: IV, Drug form: INJ, ONCE, Stop date: 04/11/18 9:50:00 CDT Inactive 04/11/2018 [facility] acetaminophen (ANES) Route: IV, Drug form: INJ, ONCE, Stop date: 04/11/18 9:45:00 CDT Inactive 04/11/2018 [facility] phenylephrine (ANES) Route: IV, Drug form: INJ, ONCE, Stop date: 04/11/18 9:40:00 CDT Inactive 04/11/2018 [facility] ePHEDrine ([facility]) Route: IV, Drug form: INJ, ONCE, Stop date: 04/11/18 9:40:00 CDT Inactive 04/11/2018 [facility] Ondansetron 4 mg, Route: IVP, ONCE, Dosing Weight 97.273, kg, PRN Nausea & Vomiting, Start date: 04/11/18 9:32:00 CDT Inactive 04/11/2018 [facility] Naloxone 0.4 mg, Route: IVP, Q2MIN, Dosing Weight 97.273, kg, PRN Narcotic Reversal, Start date: 04/11/18 9:32:00 CDT, Duration: 8 doses or times, Stop date: Limited # of times Inactive 04/11/2018 [facility] Flumazenil 0.2 mg, Route: IVP, PRN, Dosing Weight 97.273, kg, PRN Benzodiazepine Reversal, Initial dose, Start date: 04/11/18 9:32:00 CDT, Duration: 30 day, Stop date: 05/11/18 9:31:00 CDT Inactive 04/11/2018 [facility] Hydromorphone 0.5 mg, Route: IVP, Q5Min, Dosing Weight 97.273, kg, PRN Pain Score 7-10, Start date: 04/11/18 9:32:00 CDT, Duration: 4 doses or times, Stop date: Limited # of times Inactive 04/11/2018 [facility] Fentanyl 25 microgram, Route: IVP, Q5Min, Dosing Weight 97.273, kg, PRN Pain Score 4-6, Priority: Routine, Start date: 04/11/18 9:32:00 CDT, Duration: 4 doses or times, Stop date: Limited # of times Inactive 04/11/2018 [facility] Oxycodone 5 mg, Route: PO, Drug form: TAB, Q4H, Dosing Weight 97.273, kg, PRN Pain Score 4-6, Start date: 04/11/18 9:32:00 CDT, Duration: 30 day, Stop date: 05/11/18 9:31:00 CDT Inactive 04/11/2018 [facility] Metoprolol 1 mg, Route: IVP, Q5Min, Dosing Weight 97.273, kg, PRN Elevated BP, Start date: 04/11/18 9:32:00 CDT, Duration: 5 doses or times, Stop date: Limited # of times Inactive 04/11/2018 [facility] Labetalol 10 mg, Route: IVP, Q5Min, Dosing Weight 97.273, kg, PRN Elevated BP, Start date: 04/11/18 9:32:00 CDT, Duration: 5 doses or times, Stop date: Limited # of times Inactive 04/11/2018 [facility] Saline Flush 0.9% 10 ml, Route: IVP, Drug Form: INJ, Dosing Weight 97.273, kg, PRN, PRN Line Flush, Start date: 04/11/18 9:24:00 CDT, Duration: 30 day, Stop date: 05/11/18 9:23:00 CDTNotes: (Same as: BD Posiflush) No Longer Active 04/11/2018 [facility] Tylenol 650 mg, 2 tab, Route: PO, Drug form: TAB, Q6H, Dosing Weight 97.273, kg, PRN Pain 1-3/Temp > 100.4 F, Start date: 04/11/18 9:24:00 CDT, Duration: 30 day, Stop date: 05/11/18 9:23:00 CDTNotes: Do not exceed 4 gm/day. (Same as: Tylenol) No Longer Active 04/11/2018 [facility] Flomax 0.4 mg, Route: PO, Daily, Dosing Weight 97.273, kg, Priority: NOW, Start date: 04/11/18 9:24:00 CDT, Duration: 30 day, Stop date: 05/11/18 9:00:00 CDT Inactive 04/11/2018 [facility] Benadryl 25 mg, 1 cap, Route: PO, Drug form: CAP, TID, Dosing Weight 97.273, kg, PRN Itching, Start date: 04/11/18 9:24:00 CDT, Duration: 30 day, Stop date: 05/11/18 9:23:00 CDTNotes: (Same as: Benadryl) No Longer Active 04/11/2018 [facility] Dilaudid 0.5 mg, 0.25 mL, Route: IVP, Drug form: INJ, Q3H, Dosing Weight 97.273, kg, PRN Pain Score 7-10, Start date: 04/11/18 9:24:00 CDT, Duration: 30 day, Stop date: 05/11/18 9:23:00 CDTNotes: Same as Dilaudid No Longer Active 04/11/2018 [facility] phenol 1 spray, Route: TOP, Daily, Drug form: SPRY, PRN Sore Throat, Start date: 04/11/18 9:24:00 CDT, Duration: 30 day, Stop date: 05/11/18 9:23:00 CDTNotes: Chloraseptic Lee (Same as: Chloraseptic, Sore Th roat Lee) WASTE: F/P - Black; E - Municipal Trash Bin No Longer Active 04/11/2018 [facility] Acetaminophen 325 MG / Hydrocodone Bitartrate 10 MG Oral Tablet [Copake 10/325] 2 tab, Route: PO, Drug Form: TAB, Dosing Weight 97.273, kg, Q4H, PRN Pain Score 4-6, Start date: 04/11/18 9:24:00 CDT, Duration: 30 day, Stop date: 05/11/18 9:23:00 CDTNotes: Do not exceed 4gm/day of acetaminophen. (Same as: Copake 325/10) No Longer Active 04/11/2018 [facility] Ondansetron 4 mg, 2 mL, Route: IVP, Drug form: INJ, Q6H, Dosing Weight 97.273, kg, PRN Nausea & Vomiting, Start date: 04/11/18 9:24:00 CDT, Duration: 30 day, Stop date: 05/11/18 9:23:00 CDT, >/=4 years, Pediatric DosingNotes: (Same as: Zofran) MEDICATION WASTE Product Size: 4 mg Product Wasted: ___ mg No Longer Active 04/11/2018 [facility] Labetalol 10 mg, 2 mL, Route: IVP, Drug form: INJ, Q15Min, Dosing Weight 97.273, kg, PRN Hypertension, Start date: 04/11/18 9:24:00 CDT, Duration: 3 doses or times, Stop date: 05/10/18 0:00:00 CDT No Longer Active 04/11/2018 [facility] Hydralazine 20 mg, 1 mL, Route: IVP, Drug form: INJ, Q4H, Dosing Weight 97.273, kg, PRN Hypertension, Start date: 04/11/18 9:24:00 CDT, Duration: 30 day, Stop date: 05/11/18 9:23:00 CDTNotes: (Same as: Apresoline) No Longer Active 04/11/2018 [facility] Melatonin 3 MG Extended Release Tablet 3 mg, 1 tab, Route: PO, Drug Form: TAB, Dosing Weight 97.273, kg, Bedtime, PRN as needed for insomnia, Start date: 04/11/18 9:24:00 CDT, Duration: 30 day, Stop date: 05/11/18 9:23:00 CDTNotes: (Same as: Melatonin) No Longer Active 04/11/2018 [facility] Bisacodyl 10 mg, 1 supp, Route: RI, Drug form: SUPP, Daily, Dosing Weight 97.273, kg, PRN Constipation, Start date: 04/11/18 9:24:00 CDT, Duration: 30 day, Stop date: 05/11/18 9:23:00 CDTNotes: (Same As: Dulcolax, Bisco-Lax) No Longer Active 04/11/2018 [facility] Robaxin 500 mg, 1 tab, Route: PO, Drug form: TAB, TID, Dosing Weight 97.273, kg, PRN Spasm, Start date: 04/11/18 9:24:00 CDT, Duration: 30 day, Stop date: 05/11/18 9:23:00 CDTNotes: (Same as:Robaxin) No Longer Active 04/11/2018 [facility] Lactated Ringers Injection IV (ANES) 1000 mL Route: IV, Total Volume: 1,000, Start date: 04/11/18 8:00:00 CDT, Stop date: 04/11/18 9:00:00 CDT Inactive 04/11/2018 [facility] ceFAZolin + sterile water 20 mL 2 gm, Route: IV, PRE OP, Start date: 04/11/18 4:00:00 CDT, Duration: 1 day, Stop date: 04/12/18 3:59:00 CDT, ABX Indication: Surgical ProphylaxisNotes: (Same As: Cayetano Holden) MEDICATION WASTE Product Size: 1000 mg Product Wasted: ___ mg No Longer Active 04/11/2018 [facility] gabapentin 300 mg, PO, BID No Longer Active 04/09/2018 [facility] Zantac 300 mg, PO, Bedtime Active 04/09/2018 [facility] Pseudoephedrine HCL Pseudoephedrine HCL, 30 mg=, PO, Daily Active 04/09/2018 [facility] Isosorbide Dinitrate 15 mg, PO, Daily Active 04/09/2018 [facility] isosorbide dinitrate 30 mg oral tablet 30 mg=1 tab, PO, BID, 0 Refill(s) Active 03/05/2018 [facility] Vascepa 2 gm, PO, BID, 0 Refill(s) Active 03/05/2018 [facility] Primidone PO, TID, 0 Refill(s) Active 03/05/2018 [facility] Amlodipine 5 MG Oral Tablet [Norvasc] 5 mg=1 tab, PO, Daily, # 30 tab, 1 Refill(s) Active 03/05/2018 [facility] clopidogrel 75 MG Oral Tablet [Plavix] 75 mg=1 tab, PO, Daily, # 30 tab, 0 Refill(s) Active 03/05/2018 [facility] finasteride 5 mg oral tablet 5 mg=1 tab, PO, Daily, # 30 tab, 0 Refill(s) Active 03/05/2018 [facility] Hydrochlorothiazide 25 MG / valsartan 320 MG Oral Tablet [Diovan HCT 320/25] 1 tab, PO, Daily, # 30 tab, 0 Refill(s) Active 03/05/2018 [facility] Tamsulosin hydrochloride 0.4 MG Oral Capsule [Flomax] 0.4 mg=1 cap, PO, Daily, # 30 cap, 0 Refill(s) Active 03/05/2018 [facility] ezetimibe 10 MG Oral Tablet [Zetia] 10 mg=1 tab, PO, Daily, # 30 tab, 0 Refill(s) Active 03/05/2018 [facility] potassium chloride 10 mEq oral capsule, extended release 10 mEq=1 cap, PO, Daily, # 30 cap, 1 Refill(s) Active 03/05/2018 [facility] pantoprazole 40 MG Enteric Coated Tablet [Protonix] 40 mg=1 tab, PO, Daily, 0 Refill(s) Active 03/05/2018 [facility] pantoprazole 40 MG Granules [Protonix] =1 Pack, PO, Daily, # 30 ea, 0 Refill(s) Active 03/05/2018 [facility] Bifidobacterium Infantis 4 MG Oral Capsule [Align] 4 mg=1 cap, PO, Daily, # 28 cap, 0 Refill(s) Active 03/05/2018 [facility] Rosuvastatin calcium 40 MG Oral Tablet [Crestor] 40 mg=1 tab, PO, Bedtime, # 30 tab, 0 Refill(s) Active 03/05/2018 [facility] Aspirin 81 MG Enteric Coated Tablet 81 mg=1 tab, PO, Daily, # 90 tab, 3 Refill(s) Active 03/05/2018 [facility] Carisoprodol 350 MG Oral Tablet [Soma] 350 mg=1 tab, PO, QID, 0 Refill(s) Active 03/05/2018 [facility] desloratadine / Pseudoephedrine 1 tab, PO, Q12H, 0 Refill(s) Active 03/05/2018 [facility] Dalmane 30 mg oral capsule 30 mg=1 cap, PO, Bedtime, PRN for sleep, 0 Refill(s) Active 03/05/2018 [facility] Metoprolol Tartrate 75 MG Oral Tablet 75 mg=1 tab, PO, BID, 0 Refill(s) Active 03/05/2018 [facility] Centrum Silver Men's 1 tab, PO, Daily, 0 Refill(s) Active 03/05/2018 [facility] icosapent ethyl 1000 MG Oral [...] 1955; Age: 62 years y/o Male MR: [id number] Study: Brain wo contrast CT 04/24/2018 4:13 [...] Bee Avitia 04/24/18 16:32 FINAL REPORT RADHA Larsen Vital Signs Vital Sign Value Date Comments Source BMI Calculated 30.34 05/14/2018 [facility] Weight 95.909 05/14/2018 [facility] Height 177.8 cm 05/14/2018 [facility] Temperature Oral (F) 98.1 F 05/14/2018 [facility] Heart Rate 83 05/14/2018 [facility] Systolic (mm Hg) 140 05/14/2018 [facility] Diastolic (mm Hg) 95 05/14/2018 [facility] BMI Calculated 30.34 04/23/2018 [facility] Weight 95.909 04/23/2018 [facility] Height 177.8 cm [facility]/23/[facility] 92 04/23/2018 [facility] Systolic (mm Hg) 122 04/23/2018 [facility] Diastolic (mm Hg) 80 04/23/2018 [facility] Temperature Oral (F) 98.0 F 04/23/2018 [facility] Respitory Rate 45 04/12/2018 [facility] Systolic (mm Hg) 122 04/12/2018 [facility] Diastolic (mm Hg) 81 04/12/2018 [facility] Systolic (mm Hg) 126 04/12/2018 [facility] Diastolic (mm Hg) 65 04/12/2018 [facility] Respitory Rate 36 04/12/2018 [facility] Systolic (mm Hg) 107 04/12/2018 [facility] Diastolic (mm Hg) 58 04/12/2018 [facility] Respitory Rate 18 04/12/2018 [facility] Temperature Oral (F) 98 F 04/11/2018 [facility] BMI Calculated 30.48 04/11/2018 [facility] Weight 96.364 04/11/2018 [facility] Height 177.8 cm 04/11/2018 [facility] BMI Calculated 30.77 04/11/2018 [facility] Weight 97.273 04/11/2018 [facility] Height 177.8 cm 04/11/2018 [facility] Heart Rate 70 04/11/2018 [facility] Height 177.8 cm 04/09/2018 [facility] BMI Calculated 30.77 04/09/2018 [facility] Weight 97.273 04/09/2018 [facility] Systolic (mm Hg) 124 04/09/2018 [facility] Diastolic (mm Hg) 79 04/09/2018 [facility] Temperature Oral (F) 97.8 F 04/09/2018 [facility] Heart Rate 91 04/09/2018 [facility] Height 274.32 cm 04/09/2018 [facility] BMI Calculated 30.68 04/09/2018 [facility] Weight 97.003 04/09/2018 [facility] Height 177.8 cm 03/05/2018 [facility] BMI [...] Status Source [facility] Phone Message [id number] 02/20/2018 02/22/2018 [facility] Phone Message [id number] 02/27/2018 03/01/2018 [facility] Phone Message [id number] 02/27/2018 03/01/2018 [facility] Outpatient [id number] [facility] 03/05/2018 Active [facility] Outpatient [id number] DAVIAN OCONNOR 03/05/2018 Active [facility] [id number] [facility] 03/05/2018 03/06/2018 [facility] Ambulatory Pre-Reg [id number] Arin Ureña 03/05/2018 03/05/2018 [facility] Phone Message [id number] 04/09/2018 04/11/2018 [facility] Outpatient [id number] DAVIAN OCONNOR 04/09/2018 Active [facility] Outpatient [id number] Davian Oconnor 04/09/2018 04/10/2018 [facility] [id number] DAVIAN OCONNOR 04/11/2018 Active [facility] Inpatient [id number] Davian Oconnor 04/11/2018 04/12/2018 [facility] Phone Message [id number] 04/16/2018 04/18/2018 [facility] [id number] DAVIAN OCONNOR 04/23/2018 Active [facility] Outpatient [id number] Davian Oconnor 04/23/2018 04/24/2018 [facility] [place] [id number] Davian Oconnor 04/24/2018 04/25/2018 [facility] [place] [facility] Phone Message [id number] 04/26/2018 04/28/2018 [facility] Phone Message [id number] 04/26/2018 04/28/2018 [facility] Phone Message [id number] 04/29/2018 05/01/2018 [facility] Phone Message [id number] 05/03/2018 05/05/2018 [facility] Outpatient [id number] DAVIAN OCONNOR 05/14/2018 Active [facility] Neurosurgery [facility] Outpatient [id number] Davian Oconnor 05/14/2018 05/15/2018 [facility] Procedures Procedure Code Date Perfomer Comments Source Knee replacement<sup>1</sup> [id number] bilateral 06/2008 and 09/2008 [facility] Stent, coronary<sup>2</sup> [id number] 1997, 2009, x2 2014 [facility] Colonoscopy [id number] [facility] Surgical removal of wisdom tooth [id number] [facility] Colonoscopy [id number] [facility] Knee replacement<sup>1</sup> [id number] bilateral 06/2008 and 09/2008 [facility] Stent, coronary<sup>2</sup> [id number] 1997, 2009, x2 2013 [facility] Surgical removal of wisdom tooth [id number] [facility] Colonoscopy [id number] [facility] Knee replacement<sup>1</sup> [id number] bilateral 06/2008 and 09/2008 [facility] Stent, coronary<sup>2</sup> [id number] 1997, 2009, x2 2013 [facility] Surgical removal of wisdom tooth [id number] [facility]
--- OUTSIDE RECORDS SUMMARY | 2019-03-19 07:02 | XMS REPORT | Clinical Summary ---
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
--- OUTSIDE RECORDS SUMMARY | 2019-03-19 07:02 | XMS REPORT | Clinical Summary ---
Author Author [facility] Address Unknown Phone Unavailable Care Team Providers Care Scientific Systems Analyst Name Role Phone Jayme Daugherty MD PCP [...] Description Date Type Specialty Genaro Vuong MD 11/13/2018 Abstract Orthopedic Surgery Genaro Vuong MD Primary osteoarthritis of both knees (Primary Dx); History of total bilateral knee replacement 11/06/2018 Office Visit Orthopedic Surgery Gabrielle Moran Acute pain of both knees (Primary Dx) 11/05/2018 Orders Only Orthopedic Surgery after 03/18/2018 Social History Date Tobacco Use Types Packs/Day Years Used Never Assessed Sex Assigned at Date Recorded Not on file Industry Job Start Date Occupation Not on file Not on file Not on file Travel End Travel History Travel Start No recent travel history available. Last Filed Vital Signs Not on file Plan of Treatment Health Maintenance Due Date Last Done Comments COLON CANCER SCREENING 2003 SHINGLES VACCINES (#1) 2003 65+ PNEUMOCOCCAL VACCINE 2018 (1 of 2 - PCV13) PNEUMOCOCCAL 2018 POLYSACCHARIDE VACCINE AGE 65 AND OVER INFLUENZA VACCINE 05/15/2019 Procedures Comments Procedure Name Priority Date/Time Associated Diagnosis XR KNEE 3 VW BILATERAL Routine 11/06/2018 Acute pain of both knees 11:47 AM ROD HANGER after 03/18/2018 Results * XR Knee 3 Vw Bilateral (11/06/2018 11:47 AM ROD HANGER) Specimen Narrative Performed At [facility] Well fixed and aligned TKR Biateral [facility] Organization Address City[facility]State[facility] Phone Number [facility] [address] [place] [address] after 03/18/2018 Insurance Type Payer Benefit Subscriber ID Effective Phone Address Plan / Dates Group Medicare MEDICARE MEDICARE xxxxxxxxxxx 2018-P [place], PART A AND resent [place] B Commercial COMMERCIAL MISC [facility] xxxxxxxx 2018- COMMERCIAL Present Advance Directives Patient has advance care planning documents on file. For more information, kailey han contact: Gerardo Vargas [address] [place] [address]
--- OUTSIDE RECORDS SUMMARY | 2019-03-19 07:03 | XMS REPORT | Summary of Care ---
Author Author ROSA Neurosurgery [facility] Organization [facility] Neurosurgery [facility] Address Unknown Phone Unavailable Encounter HQ Carol(FIN) [phone] Date(s): 05/03/18 - 05/04/18 [facility] Neurosurgery [facility] [address], [address] [place] [phone] Vital Signs No data available for [...] wisdom tooth Completed 1bilateral 06/2008 and 09/2008 [id number], 2010, x2 2013 Social History Social History Type Response Substance Abuse Use: None. Alcohol Current, Frequency: Daily. Previous treatment: None. Smoking Status Former smoker; Type: Cigarettes; Exposure to Tobacco Smoke None; Cigarette Smoking Last 365 Days No; Reg Smoking Cessation Counseling No1 entered on: 05/14/18 1Quit smoking 10 years ago Assessment and Plan No data available for this section
--- OUTSIDE RECORDS SUMMARY | 2019-03-19 07:03 | XMS REPORT | Summary of Care ---
Author Author ROSA Neurosurgery [facility] Organization [facility] Neurosurgery [facility] Address Unknown Phone Unavailable Encounter HQ Carol(FIN) [phone] Date(s): 04/29/18 - 04/30/18 [facility] Neurosurgery [facility] [address], [address] [place] [phone] Vital Signs No data available for [...] wisdom tooth Completed 1bilateral 06/2008 and 09/2008 74067, 2010, x2 2013 Social History Social History [...]
--- OUTSIDE RECORDS SUMMARY | 2019-03-19 07:03 | XMS REPORT | Summary of Care ---
Author Author ROSA Neurosurgery [facility] Organization [facility] Neurosurgery [facility] Address Unknown Phone Unavailable Encounter DENISHA Medina(CHRISTIN) [id number] Date(s): 05/14/18 - 05/14/18 [facility] Neurosurgery [facility] [address], [address] [place] [address]- [facility] [phone] Discharge Disposition: Home or Self Care Attending Physician: Ian Oconnor MD Referring Physician: Arin Ureña MD Vital Signs Most recent to 1 oldest [Reference Range]: Height 177.8 cm (05/14/18 6:41 PM) Temperature Oral 98.1 DegF [96.4-99.1 DegF] (05/14/18 6:41 PM) Blood Pressure 140/95 mmHg [90-140/60-90 mmHg] (05/14/18 6:41 PM) Peripheral Pulse 83 bpm Rate [60-100 bpm] (05/14/18 6:41 PM) Weight 95.909 kg (05/14/18 6:41 PM) Body Mass Index 30.34 m2 (05/14/18 6:41 PM) Problem List Condition Effective Dates Status [...] wisdom tooth Completed 1bilateral 06/2008 and 09/2008 [id number], 2009, x2 2013 Social History Social History [...]
[2019-03-19 08:13] LABS: ANION GAP 13.2 mmol/L (8-16); BLOOD UREA NITROGEN 16 mg/dL (7-26); BUN/CREATININE RATIO 16 (6-25); CALCIUM 10.2 mg/dL (8.4-10.2); CARBON DIOXIDE 27 mmol/L (22-29); CHLORIDE 89 mmol/L (98-107); CREATININE, SERUM 0.99 mg/dL (0.72-1.25); EST GLOMERULAR FILTRATION RATE > 60 ML/MIN (60-); GLUCOSE 113 mg/dL (74-118); POTASSIUM 3.2 mmol/L (3.5-5.1); SODIUM 126 mmol/L (136-145)
[2019-03-19 11:58] VITALS: BP 119/92
--- NOTE | 2019-03-23 06:15 | Operative Report ---
DATE OF PROCEDURE: 03/19/2019 SURGEON: Grzegorz Russell MD PROCEDURES: Esophagogastroduodenoscopy with biopsies and colonoscopy with polypectomy. INDICATIONS FOR EGD: Heartburn and bloating. INDICATIONS FOR COLONOSCOPY: Surveillance colonoscopy, personal history of colon polyps, and father with colon cancer. MEDICATIONS: The patient was done under MAC, please see anesthesiologist's note. PROCEDURE IN DETAIL: With the patient in left lateral decubitus position, flexible fiberoptic Olympus gastroscope was introduced into the esophagus under direct visualization without any difficulty. There was some patchy erythema noted in distal esophagus. The scope was then advanced with ease into the stomach. Mucosa overlying the antrum and the body revealed some patchy erythema and moderate edema in the antrum and biopsies were obtained and sent to stain for H pylori. The mucosa overlying the body particularly distal body was excessively nodular and also biopsies were obtained. The pylorus was of normal contour and shape, it was intubated with ease and the scope was advanced all the way to the second portion of the duodenum. Biopsies were obtained from the proximal second portion and the duodenal bulb to rule out sprue. The scope was then withdrawn back into the stomach and retroflexed and mucosa overlying the fundus and cardia appeared to be within normal limits. The scope was then straightened out, it was subsequently withdrawn. The patient tolerated the procedure well. IMPRESSION: 1. Distal esophagitis, mild. 2. Gastritis, biopsied. Biopsies sent to stain for H pylori. 3. Rule out sprue. PLAN: Follow up histology. Continue Protonix 40 mg one p.o. a.c. b.i.d. and Zantac 300 mg one p.o. at bedtime. We will add Carafate 1 g p.o. before meals t.i.d. and at bedtime. The patient was then turned around after adequate lubrication of the anal canal. A flexible fiberoptic Olympus colonoscope was inserted into the rectum with ease and advanced all the way to the cecum. It was then withdrawn slowly. Mucosa overlying the cecum appeared to be within normal limits. Two polyps were hot biopsied from the ascending colon. One polyp was hot biopsied from the transverse colon. One polyp was hot biopsied from the descending colon. Diverticular disease was noted to involve the distal descending and the sigmoid colon. One polyp was hot biopsied from the sigmoid. The rectum grossly appeared to be within normal limits. The scope was then retroflexed into the distal rectum and small internal hemorrhoids were noted, none of which was actively bleeding. The scope was then straightened out, it was subsequently withdrawn. The patient tolerated procedure well. IMPRESSION: 1. Ascending colon polyps x2 hot biopsied. 2. Transverse colon polyp x1 hot biopsied. 3. Descending colon polyp x1 hot biopsied. 4. Diverticulosis. 5. Sigmoid colon polyp x1 hot biopsied. 6. Internal hemorrhoids, none actively bleeding. PLAN: Follow up histology. Initiate high-fiber, low-fat diet. Initiate high-fiber supplement. The patient might benefit from a followup colonoscopy in 3 years. Grzegorz Russell MD [facility]/JULIANNA /[id number] cc: Jayme Daugherty
== END | disposition home or self-care (01) ==
LOC: OR 06:49
PROVIDERS: ATTEND Internal Medicine Gastroenterology
DX: K29.60 Other gastritis without bleeding (principal); D12.2 Benign neoplasm of ascending colon; K22.70 Barrett's esophagus without dysplasia; K20.8 Other esophagitis; K57.30 Diverticulosis of large intestine without perforation or abscess without bleeding; K64.8 Other hemorrhoids; I25.10 Atherosclerotic heart disease of native coronary artery without angina pectoris; I10 Essential (primary) hypertension; E78.00 Pure hypercholesterolemia, unspecified; Z88.8 Allergy status to other drugs, medicaments and biological substances; Z88.1 Allergy status to other antibiotic agents; Z01.810 Encounter for preprocedural cardiovascular examination; Z79.02 Long term (current) use of antithrombotics/antiplatelets; Z79.82 Long term (current) use of aspirin; Z68.29 Body mass index [BMI] 29.0-29.9, adult; Z80.0 Family history of malignant neoplasm of digestive organs
CPT/HCPCS: 36415; 43239; 45384; 80048; 88305; 88312; 93005; J1610; J2250; J2704; 45378

== ENCOUNTER 2019-03-25 09:21 | Emergency (ER) | payer MEDICARE, OTHER ==
[~2019-03-25] VITALS: Ht 180.3 cm; Wt 96.2 kg
--- OUTSIDE RECORDS SUMMARY | 2019-03-25 09:26 | XMS REPORT | Clinical Summary ---
Author Author CAL[facility] Address Unknown Phone Unavailable Care Team Providers Care Dye Reel Operator Helper Name Role Phone Jayme Daugherty PCP Unavailable [...] Not on file Results Not on fileafter 03/24/2018 Insurance Payer Benefit Subscriber ID Type Phone Address Plan / Group BLUE CROSS/BLUE SHIELD BCBS PPO xxxxxxxxxxxx PPO [phone] [address] [place] [address] CHOICE Advance Directives For more information, please contact: [facility] [address] [place] [address] [phone] Date Inactivated Comments Code Status Date Activated [...]
--- OUTSIDE RECORDS SUMMARY | 2019-03-25 09:26 | XMS REPORT | Clinical Summary ---
Author Author [facility] Address Unknown Phone Unavailable Care Team Providers Care Travel Agent Name Role Phone Jayme Daugherty MD PCP [...] Dx) 11/05/2018 Orders Only Orthopedic Surgery after 03/24/2018 Social History Date Tobacco Use Types Packs/Day Years Used Never Assessed Sex Assigned at Date Recorded Not on file Industry Job Start Date Occupation Not on file Not on file Not on file Travel End Travel History Travel Start No recent travel history available. Last Filed Vital Signs Not on file Plan of Treatment Health Maintenance Due Date Last Done Comments COLONOSCOPY SCREENING 2003 SHINGLES VACCINES (#1) 2003 65+ PNEUMOCOCCAL VACCINE 2018 (1 of 2 - PCV13) INFLUENZA VACCINE 05/15/2019 Procedures Comments Procedure Name Priority Date/Time Associated Diagnosis XR KNEE 3 VW BILATERAL Routine 11/06/2018 Acute pain of both knees 11:47 AM SR SOLUTIONS CONSULTANT after 03/24/2018 Results * XR Knee 3 Vw Bilateral (11/06/2018 11:47 AM SR SOLUTIONS CONSULTANT) Specimen Narrative Performed At [facility] Well fixed and aligned TKR Biateral [facility] Organization Address City/State/Zipcode Phone Number [facility] [address] [place] [address] after 03/24/2018 Insurance Type Payer Benefit Subscriber ID Effective Phone Address Plan / Dates Group Medicare MEDICARE MEDICARE xxxxxxxxxxx 2018-P [place]RILLO, PART A AND resent [place] B Commercial COMMERCIAL MISC MISC xxxxxxxx 2018- COMMERCIAL Present Advance Directives Patient has advance care planning documents on file. For more information, kailey han contact: Gerardo Vargas [address] [place] [address]
[2019-03-25 10:35] VITALS: BP 140/89
== END 2019-03-25 10:43 | disposition home or self-care (01) ==
LOC: ER 09:21
DX: Z48.02 Encounter for removal of sutures (principal)
CPT/HCPCS: 99282

== ENCOUNTER → 2019-07-07 | Outpatient (CLI) | payer MEDICARE, OTHER ==
--- NOTE | 2019-07-07 14:29 | Diagnostic Imaging Report ---
Examination: CT head without contrast Clinical Indication: Dizziness. Unsteady gait. Technique: Transaxial noncontrast images from the skull base through the vertex were obtained. Sagittal and coronal reformatted images were done. Dose modulation, iterative reconstruction, and/or weight based adjustment of the mA/kV was utilized to reduce the radiation dose to as low as reasonably achievable. Comparison: 03/19/[address] Findings: Scalp: No abnormalities. Bones: Intact. No fractures. No blastic or lytic lesions. Brain sulci: Appropriate for patient's age. Ventricles: Right parietal ventricular shunt catheter with distal tip in the body of the right lateral ventricle. No hydrocephalus. Extra-axial space: No abnormalities. Parenchyma: Again demonstrated are confluent areas of low-attenuation within subcortical and periventricular white matter, nonspecific, but could represent microvascular ischemic disease. No masses, hemorrhage, or acute or chronic cortical based vascular insults. Suprasellar region: No abnormalities. Craniocervical junction: The foramen magnum is patent. No Chiari one malformation. Incidental findings: Atherosclerotic calcification of the cavernous and supraclinoid internal carotid and V4 segments of the bilateral vertebral arteries. Impression: 1. No new or acute intracranial abnormality. No change from prior head CT performed March 19, 2019. 2. Unchanged chronic microvascular ischemic change. 3. Unchanged right parietal shunt catheter. Signed by: Dr. Leni Thomason M.D. on 07/07/2019 2:26 PM
== END ==
LOC: CT 12:53
PROVIDERS: ATTEND Student in an Organized Health Care Education/Training Program
DX: G91.2 (Idiopathic) normal pressure hydrocephalus (principal); R41.3 Other amnesia; R26.9 Unspecified abnormalities of gait and mobility
CPT/HCPCS: 70450

== ENCOUNTER 2020-01-05 01:49 | Inpatient (IN) | payer MEDICARE, OTHER ==
[2020-01-05] VITALS (7 sets, daily range): BP systolic 141–153; BP diastolic 56–84
[~2020-01-05] VITALS: Ht 180.3 cm; Wt 100.7 kg
[2020-01-05] MEDS ORDERED: SODIUM CHLORIDE 0.9% 1000ML 500 ML IV SCH (02:15)
[2020-01-05] MEDS ORDERED: SODIUM CHLORIDE 0.9% 1000ML 1,000 ML ONE (02:20)
[2020-01-05 02:27] LABS: BASOPHILS # (AUTO) 0.1 (0.0-0.1); BASOPHILS % 0.5 % (0.0-1.0); EOSINOPHILS # (AUTO) 0.3 (0.0-0.4); HEMATOCRIT 28.6 % (38.2-49.6); HEMOGLOBIN 9.4 g/dL (14.0-18.0); LYMPHOCYTES # (AUTO) 1.4 (1.0-3.2); LYMPHOCYTES % 14.4 % (18.0-39.1); MEAN CORPUSCULAR HEMOGLOBIN 24.3 pg (28-32); MEAN CORPUSCULAR HGB CONC 32.9 g/dL (31-35); MEAN CORPUSCULAR VOLUME 73.9 fL (81-99); MONOCYTES % 9.7 % (4.4-11.3); NEUTROPHILS # (AUTO) 7.1 (2.1-6.9); NEUTROPHILS % 72.1 % (38.7-80.0); PLATELET COUNT 309 x10e3/uL (140-360); RED BLOOD COUNT 3.87 x10e6/uL (4.3-5.7); RED CELL DISTRIBUTION WIDTH 15.9 % (11.7-14.4)
[2020-01-05 02:32] LABS: INR 0.9; PROTHROMBIN TIME 12.7 seconds (11.9-14.5)
[2020-01-05 02:33] LABS: PARTIAL THROMBOPLASTIN TIME 32.3 seconds (23.8-35.5)
[2020-01-05 02:41] LABS: ALANINE AMINOTRANSFERASE 22 IU/L (0-55); ALBUMIN 3.3 g/dL (3.5-5.0); ALBUMIN/GLOBULIN RATIO 0.9 (0.8-2.0); ALKALINE PHOSPHATASE 101 IU/L (40-150); BLOOD UREA NITROGEN 13 mg/dL (7-26); BUN/CREATININE RATIO 15 (6-25); CARBON DIOXIDE 27 mmol/L (22-29); CHLORIDE 70 mmol/L (98-107); CREATININE, SERUM 0.86 mg/dL (0.72-1.25); EST GLOMERULAR FILTRATION RATE > 60 ML/MIN (60-); GLUCOSE 137 mg/dL (74-118)
[2020-01-05 02:44] LABS: CALCIUM 8.5 mg/dL (8.4-10.2)
[2020-01-05 02:45] LABS: SODIUM 110 mmol/L (136-145)
[2020-01-05 03:17] LABS: BILIRUBIN,URINE NEGATIVE (NEGATIVE); CLARITY,URINE CLEAR (CLEAR); COLOR,URINE YELLOW (YELLOW); KETONES,URINE NEGATIVE (NEGATIVE); LEUKOCYTE ESTERASE ,URINE NEGATIVE (NEGATIVE); NITRITE,URINE NEGATIVE (NEGATIVE); PROTEIN,URINE DIPSTICK TRACE (NEGATIVE); URINE UROBILINOGEN 0.2 mg/dL (0.2 - 1)
[2020-01-05 03:24] LABS: BACTERIA,URINE MODERATE /HPF; EPITHELIAL CELLS,URINE FEW /LPF; RBC,URINE 0-5 /HPF (0-5); WBC,URINE (MAN) 0-5 /HPF (0-5)
--- NOTE | 2020-01-05 03:30 | Diagnostic Imaging Report ---
ADDENDUM #1 Partial hemorrhagic opacification of right maxillary sinus. Signed by: Dr. Yenny Rhodes M.D. on 01/05/2020 3:34 AM ORIGINAL REPORT EXAMINATION: Head CT without contrast. HISTORY:Fall. COMPARISON:CT brain from 07/07/2019. TECHNIQUE: Multidetector axial images were obtained from the foramen magnum to the vertex without contrast. The images were reconstructed using brain and bone algorithms. Thin section brain images were reformatted into coronal and sagittal planes. Dose modulation, iterative reconstruction, and/or weight based adjustment of the mA/kV was utilized to reduce the radiation dose to as low as reasonably achievable. Intravenous contrast: None IMAGE QUALITY: Acceptable. FINDINGS: Skull/scalp: Mild right frontal scalp soft tissue edema/hematoma that extends to the supraorbital region. No soft tissue emphysema or radiopaque foreign body. No underlying acute calvarial fracture. Expected postoperative changes from prior right parietal frontal zaid hole craniotomy for ventricular catheter placement. Parenchyma: Nonspecific bilateral frontoparietal patchy white matter hypodensity are likely related to small vessel ischemic changes. No acute hemorrhage, mass or acute major vascular territorial infarct. Arteries: No density suggestive of thrombosis. Atherosclerotic calcification in bilateral carotid siphon. Dural sinuses: No abnormal density suggestive of thrombosis. Ventricles: Unchanged right parietal approach ventricular catheter with the tip in body of right lateral ventricle. Unchanged moderate dilatation of bilateral lateral ventricles. Extra-axial spaces: No abnormal density. Brain volume: Normal for age. Craniocervical junction: No mass, Chiari malformation, or basilar invagination. Sella: No mass. Paranasal/mastoid sinuses: Moderate hemorrhagic opacification of right maxillary sinus. IMPRESSION: 1. Mild right frontal scalp soft tissue edema/hematoma. No acute fracture. 2. No acute posttraumatic intracranial abnormality. Chronic findings: 1. Mild supratentorial white matter microvascular ischemic changes. 2. Expected postoperative changes from prior right parietal approach ventricular catheter without significant interval change. Signed by: Dr. Yenny Rhodes M.D. on 01/05/2020 3:27 AM
--- NOTE | 2020-01-05 03:37 | Diagnostic Imaging Report ---
History: Fall. Comparison studies: CT cervical spine from 03/19/2019. Technique: Axial images were obtained through the cervical region.. Coronal and sagittal images reconstructed from the axial data. Dose modulation, iterative reconstruction, and/or weight based adjustment of the mA/kV was utilized to reduce the radiation dose to as low as reasonably achievable. Intravenous contrast: None Findings: Fractures: None. Soft tissue injuries: None. Atlantoaxial articulation: Intact. Alignment: Loss of normal cervical lordosis is either positional or due to muscle spasm. No scoliosis. Unchanged 3 mm grade 1 anterolisthesis at level C2-C4 and 2 mm grade 1 retrolisthesis at C4-C5. Cervicomedullary junction: No abnormalities. The foramen magnum is patent. Soft tissues: No abnormalities. Vertebrae: No fractures, infection or neoplasm. Degenerative changes: Multilevel degenerative changes, moderate at level C4-C5, C5-C6 and severe at C6-C7. Moderate degenerative changes in the anterior atlantodental joint. C3-C4: Severe right foraminal stenosis due to facet and uncovertebral arthrosis. C4-C5: Moderate right foraminal stenosis due to facet and uncovertebral arthrosis. C5-C6: Posterior disc osteophyte complex results in mild canal stenosis. Mild right and moderate left foraminal stenosis due to facet and uncovertebral arthrosis. C6-C7: Severe right foraminal stenosis due to facet and uncovertebral arthrosis. IMPRESSION: 1. No acute cervical spine fracture or dislocation. Reversal of normal cervical lordosis is either positional or due to muscle spasm. 2. Ligament, spinal cord and or vascular abnormalities cannot be excluded on the basis of this examination. 3. Multilevel cervical spondylosis as detailed above. Signed by: Dr. Yenny Rhodes M.D. on 01/05/2020 3:33 AM
[2020-01-05] MEDS ORDERED: OXYMETAZOLINE HCL 0.05% NAS 1 SPRAY BTL ONE (04:00)
--- NOTE | 2020-01-05 04:02 | Diagnostic Imaging Report ---
EXAMINATION: Chest AP view INDICATION: Status post fall. COMPARISON: None FINDINGS: TUBES and LINES: Partially visualized right ventriculoperitoneal shunt. LUNGS: Patchy density in the lower lobes, with mild to moderate elevation of the right hemidiaphragm may reflect atelectasis. PLEURA: No pleural effusion or pneumothorax. HEART AND MEDIASTINUM: Cardiac size is moderately enlarged. There are atherosclerotic calcifications within the aorta. BONES AND SOFT TISSUES: No acute osseous lesion. Soft tissues are unremarkable. UPPER ABDOMEN: No free air under the diaphragm. IMPRESSION: Patchy density in the lower lobes, with mild to moderate elevation of the right hemidiaphragm may reflect atelectasis. Signed by: Dr. Grant Smith M.D. on 01/05/2020 3:59 AM
[2020-01-05] MEDS ORDERED: SODIUM CHLORIDE 0.9% 50ML 50 ML ONE (04:17)
[2020-01-05] MEDS ORDERED: IOPAMIDOL 370 MG/ML 200 ML INFUS..BTL INJ ONE (04:18)
--- NOTE | 2020-01-05 05:21 | Diagnostic Imaging Report ---
EXAM: CT Chest WITH contrast 01/05/2020 4:05 AM INDICATION: Fall. Trauma. Cough. COMPARISON: None TECHNIQUE: Chest was scanned utilizing a multidetector helical scanner from the lung apex through the level of the adrenal glands without administration of IV contrast. Coronal and sagittal reformations were obtained. Routine protocol was performed. IV CONTRAST: 100 mL of Isovue-370 RADIATION DOSE: Total DLP: 613.02 mGy*cm Estimated effective dose: (DLP x 0.014 x size factor) mSv COMPLICATIONS: None FINDINGS: LINES/ TUBES: None. LUNGS AND AIRWAYS: There is diffuse thickening of the subpleural pulmonary interstitium. Bibasilar scarring with traction bronchiectasis in the posteromedial right lower lobe, and anterior right upper lobe.. Airways are normal. PLEURA: The pleural spaces are clear. HEART AND MEDIASTINUM: The thyroid gland is normal. No mediastinal, hilar or axillary lymphadenopathy. The heart is normal in size.. There is no pericardial effusion. There are mild to moderate atherosclerotic calcifications in the aorta and coronary arteries. UPPER ABDOMEN: Limited non-contrast views of the upper abdomen show mild hepatic steatosis. Subtle attenuation in the posterior spleen on image 47 series 2. The adrenal glands are normal. BONES: 1.6 cm lytic lesion in the T6 vertebral body (suggestive of a hemangioma) 412which demonstrate slight anterior wedging possibly in part due to the presence of superior and inferior endplate Schmorl nodes. Mild degenerative changes of the thoracic spine. SOFT TISSUES: Unremarkable. IMPRESSION: 1. No acute traumatic injury. 2. Multifocal parenchymal pulmonary scarring, particularly involving the right upper and lower lobes with mild volume loss and elevation of the right hemidiaphragm. 3. Mild chronic interstitial lung disease changes. 4. Hepatic steatosis. Signed by: Dr. Grant Smith M.D. on 01/05/2020 5:18 AM
--- NOTE | 2020-01-05 05:34 | NUR ---
rhino rocket to L nare in place, coagulation achieved
[2020-01-05] MEDS ORDERED: POTASSIUM CHLORIDE 20 MEQ TAB CR PO STA (05:47)
[2020-01-05] MEDS ORDERED: SODIUM CHLORIDE 0.9% 1000ML 1,000 ML IV ONE ×2 (06:00→06:15)
--- NOTE | 2020-01-05 06:06 | NUR ---
aware of critical sodium, recieved orders for 1L ns to run at 200cc/hr x1, and 40meq K+ po x 1.
--- NOTE | 2020-01-05 06:48 | NUR ---
report given to virginia rios
[2020-01-05 07:49] LABS: ANION GAP 14.8 mmol/L (8-16); BLOOD UREA NITROGEN 14 mg/dL (7-26); BUN/CREATININE RATIO 19 (6-25); CALCIUM 8.1 mg/dL (8.4-10.2); CARBON DIOXIDE 27 mmol/L (22-29); CHLORIDE 73 mmol/L (98-107); CREATININE, SERUM 0.75 mg/dL (0.72-1.25); EST GLOMERULAR FILTRATION RATE > 60 ML/MIN (60-); GLUCOSE 121 mg/dL (74-118)
--- NOTE | 2020-01-05 08:00 | NUR ---
Pt received from ER at 0758. Pt is aox4 and able to verbalize needs. Pt denies any pain at this time. Pt is on IV fluids and well tolerated. Bruising to right side of forehead and bleeding to right nostril noted.
[2020-01-05 08:28] LABS: POTASSIUM 2.8 mmol/L (3.5-5.1); SODIUM 112 mmol/L (136-145)
[2020-01-05] MEDS ORDERED: [UNRECOGNIZED DRUG - OTHER] (08:30)
[2020-01-05] MEDS ORDERED: AMLODIPINE BESYL5 MG PO (08:30)
[2020-01-05] MEDS ORDERED: PRIMIDONE1 GM (08:30)
[2020-01-05] MEDS ORDERED: MYSOLINE50 MG (08:32)
--- NOTE | 2020-01-05 08:40 | NUR ---
Paged Dr. Santos to report critical sodium level(112) and potassium level(2.8). Waiting for call back. Pt is aox4 and able to verbalize needs. 0 s/s of acute distress noted.
[2020-01-05] MEDS ORDERED: TAMSULOSIN HCL 0.4 MG CAP PO SCH (09:00)
[2020-01-05] MEDS ORDERED: NON-FORMULARY MEDICATION (Olmesartan/Hydrochlorothiazide (Benicar Hct 40-25 Mg Tablet) 1 T PO SCH (09:00)
--- NOTE | 2020-01-05 09:00 | NUR ---
Dr. Santos here to see pt and was made aware of critical labs again. States he will put orders in. He states BMP will be check q6h and if after the second BMP today sodium is below 117 pt needs to be transferred to ICU.
[2020-01-05] MEDS ORDERED: POTASSIUM CHLORIDE 20 MEQ TAB CR PO ONE (09:50)
[2020-01-05] MEDS: SODIUM CHLORIDE 0.9% 1000ML 1,000 ML IV SCH (10:02)
[2020-01-05] MEDS: AMLODIPINE BESYLATE 5 MG TAB PO SCH (10:10)
[2020-01-05] MEDS: CLOPIDOGREL BISULFATE 75 MG TAB PO SCH (10:10)
[2020-01-05] MEDS: PANTOPRAZOLE SOD 40 MG TABEC PO SCH ×2 (10:10→18:10)
[2020-01-05] MEDS: SODIUM CHLORIDE 1 GM TAB PO SCH ×2 (10:11→15:13)
[2020-01-05] MEDS: METOPROLOL SUCCINATE 50 MG TAB XL PO SCH ×2 (10:20→18:10)
[2020-01-05] MEDS ORDERED: ISOSORBIDE DINITRATE 20 MG TAB PO SCH (11:00)
[2020-01-05] MEDS: [UNRECOGNIZED DRUG - OTHER] PO SCH (11:00)
[2020-01-05] MEDS: POTASSIUM CHLORIDE 10MEQ EA PO SCH (12:07)
[2020-01-05] MEDS: ASPIRIN 81 MG CHEW TAB PO SCH (12:07)
[2020-01-05 12:25] LABS: ANION GAP 17.5 mmol/L (8-16); BLOOD UREA NITROGEN 13 mg/dL (7-26); BUN/CREATININE RATIO 18 (6-25); CALCIUM 8.4 mg/dL (8.4-10.2); CARBON DIOXIDE 25 mmol/L (22-29); CHLORIDE 74 mmol/L (98-107); CREATININE, SERUM 0.72 mg/dL (0.72-1.25); EST GLOMERULAR FILTRATION RATE > 60 ML/MIN (60-); GLUCOSE 132 mg/dL (74-118); POTASSIUM 3.5 mmol/L (3.5-5.1)
--- NOTE | 2020-01-05 12:40 | History and Physical ---
HISTORY OF PRESENT ILLNESS: The patient is a 64-year-old male with past medical history positive for coronary artery disease status post stent placement, history of hypertension. The patient apparently fell at home. He was found to have a high levels of alcohol and came to the emergency room. Also very severe hyponatremia with sodium of 112 and potassium 2.8. The patient admitted to the hospital, started on IV fluids and sodium tab. REVIEW OF SYSTEMS: CARDIOVASCULAR: No chest pain or palpitation. RESPIRATORY: No cough. No shortness of breath. GASTROINTESTINAL: No nausea or vomiting. No diarrhea. GENITOURINARY: No urinary frequency. No dysuria. ALLERGIES: HE IS ALLERGIC TO . SOCIAL HISTORY: Quit smoking several years ago. He apparently drinks heavily. PHYSICAL EXAMINATION: VITAL SIGNS: Blood pressure 143/76, temperature 96.1, heart rate 84 per minute, respiratory rate 18 per minute, and O2 saturation 94%. HEART: Showed regular rhythm. Normal S1, S2 sound. LUNGS: Clear bilaterally. ABDOMEN: Soft. EXTREMITIES: 1+ bilateral pedal edema. LABORATORY STUDIES: On CBC; white count 9.80, hemoglobin 9.4, hematocrit 28.6, platelet count 309,000. On the BMP; sodium 112, potassium 2.8, chloride 73, CO2 27, BUN 14, creatinine 0.75, GFR of 60, glucose 121, calcium 8.1, magnesium 1.9. AST 30, ALT 22, alkaline phosphatase 101, total protein 6.8, albumin 3.3, globulin 3.5. . The urine showed no evidence of any significant abnormality, some trace protein and moderate bacteria. Also, he had a chest CT done, which showed no acute traumatic injury, multifocal parenchymal pulmonary scarring particularly involving the right upper and lower lobe with mild volume loss and elevation of right hemidiaphragm. Mild chronic interstitial lung disease changes, hepatic steatosis. Chest x-ray showed patchy density in the lower lobes. Mild to moderate elevation of right hemidiaphragm might reflect atelectasis. CT of the head showed mild right frontal scalp soft tissue edema or hematoma. No acute fracture. No acute posttraumatic intracranial abnormality. Chronic findings. Mild supratentorial white matter microvascular ischemic changes. Expected postoperative changes from prior right parietal approach ventricular catheter without significant interval change. Also, he had a CT of the cervical spine, which show no acute cervical spine fracture, dislocation, reversal of normal cervical lordosis, either position or due to muscle spasm ligament, spinal cord or vascular abnormalities cannot be excluded on the basis of examination. Multilevel cervical spondylosis at the daily level. FINAL IMPRESSION: 1. Severe hyponatremia. 2. Hypokalemia. 3. Alcohol intoxication. 4. Fall. 5. Acute anemia. 6. Coronary artery disease. 7. Pulmonary fibrosis. PLAN OF TREATMENT: We are going to start sodium tablet 2 g three times a day. Continue normal saline. We are going to monitor BMP four times a day. Nephrology consult with Dr. Ocasio. Continue amlodipine 5 mg daily. He is on Plavix 75 mg daily, Proscar 5 mg daily, metoprolol 125 mg twice a day, Protonix 40 mg twice a day, Afrin one spray once, Flomax 0.4 mg daily, aspirin 81 mg daily, isosorbide 15 mg daily, Benicar 1 tablet daily, Crestor 40 mg daily, potassium chloride 10 mEq daily, . Dr. Ocasio has been consulted from Nephrology point of view also. The patient may most likely going to need to be transferred to intensive care unit until the sodium goes up. Case was discussed with the family and the patient at the bedside with the nursing staff. Time spent 45 minutes. MD KYLAH Haynes/JULIANNA /[id number]
[2020-01-05 12:47] LABS: SODIUM 113 mmol/L (136-145)
[2020-01-05] MEDS ORDERED: FAMOTIDINE20 MG PO (14:35)
[2020-01-05] MEDS: FOLIC ACID 1 MG TAB PO SCH (18:10)
[2020-01-05] MEDS: THIAMINE HCL 100 MG TAB PO SCH (18:10)
[2020-01-05] MEDS: TAMSULOSIN HCL 0.4 MG CAP PO SCH (18:10)
[2020-01-05 18:39] LABS: BLOOD UREA NITROGEN 11 mg/dL (7-26); BUN/CREATININE RATIO 14 (6-25); CALCIUM 8.3 mg/dL (8.4-10.2); CARBON DIOXIDE 24 mmol/L (22-29); CHLORIDE 78 mmol/L (98-107); CREATININE, SERUM 0.81 mg/dL (0.72-1.25); EST GLOMERULAR FILTRATION RATE > 60 ML/MIN (60-); GLUCOSE 145 mg/dL (74-118)
[2020-01-05 18:50] LABS: SODIUM 114 mmol/L (136-145)
--- NOTE | 2020-01-05 19:00 | NUR ---
Notified Dr. Ocasio of NA level-114 and received orders to notify if next blood draw at midnight if NA is <115 or >118.
--- NOTE | 2020-01-05 19:10 | NUR ---
RECEIVED THE PATIENT IN REPORT.SITTING ON THE BED.
--- NOTE | 2020-01-05 20:06 | Consultation ---
DATE OF CONSULTATION: 01/05/2020 Renal Consultation REASON FOR CONSULTATION: Hyponatremia. HISTORY OF PRESENT ILLNESS: A 64-year-old male with history of coronary artery disease and normal pressure hydrocephalus as well as hyponatremia, presented to [facility] after he had a fall at home. The patient drinks at least half a pint to a pint of whiskey daily. Denies drinking any beer. He has had problems with his balance, which he attributed to the normal pressure hydrocephalus and fell. In the emergency room, he was found to have elevated alcohol level as well as severe hyponatremia and hypokalemia, admitted and started on IV fluids and Nephrology consultation was called. REVIEW OF SYSTEMS: Twelve-point review of systems completed. All systems negative other than mentioned in the HPI above. PAST MEDICAL HISTORY: 1. Coronary artery disease with history of stents. 2. Normal pressure hydrocephalus. 3. Hypertension. 4. History of hyponatremia. PAST SURGICAL HISTORY: 1. INTERVENTIONAL PAIN PHYSICIAN shunt. 2. Bilateral knee surgery. SOCIAL HISTORY: Positive alcohol. No tobacco. No IV drugs. FAMILY HISTORY: No family history of kidney disease. ALLERGIES: SEE LIST. MEDICATIONS: 1. Current medications, see list. 2. Discontinued medications include HCTZ 25 mg. PHYSICAL EXAMINATION: VITAL SIGNS: Blood pressure 147/74, pulse 90, respiratory rate 18, and temperature 97.8. GENERAL: No apparent distress. HEENT: Oropharynx clear. Nose with nasal trumpets. Some ecchymosis on his face. NECK: Supple. No elevation in jugular venous pressure. CHEST: Decreased breath sounds at the bases anteriorly bilaterally. CARDIOVASCULAR: Regular rhythm. No murmurs or rubs. ABDOMEN: Soft. Positive bowel sounds. No tenderness. No rebound. EXTREMITIES: 1+ pitting edema. No clubbing. No cyanosis. SKIN: Warm. LABORATORY DATA: Sodium on admission was 110 at 0155, was 112 at 0700, 113 at 12; potassium 3.5, chloride 74, BUN 13, and creatinine 0.72. Urine osmolality pending. Urine sodium 36. White count 9, hemoglobin 9.4, hematocrit 28.6, and platelets 309. IMAGING: Chest CT shows mild chronic interstitial lung disease changes, multifocal parenchymal pulmonary scarring, no acute traumatic injury otherwise. Chest x-ray, patchy density in the lower lobes. ASSESSMENT AND PLAN: 1. Hypervolemic hyponatremia, suspect multifactorial including polydipsia with history of alcohol abuse while on HCTZ. The patient is at high risk for osmotic demyelination syndrome. We will correct sodium no faster than 0.25 millimoles per liter per hour. Goal this evening would be approximately 116. For now, we will place on 1.5 liter fluid restriction. 2. Edematous on exam, may need Lasix. We will hold for now. 3. Alcohol abuse. Watch for delirium tremens. We will add thiamine and folic acid. 4. Hypertension, blood pressure currently acceptable. HCTZ discontinued as above. 5. Facial trauma secondary to fall. I have discussed with Dr. Santos. MD SHERYL Ruggiero/JULIANNA /[id number]
[2020-01-05] MEDS: FAMOTIDINE 20 MG TAB PO SCH (20:16)
[2020-01-05] MEDS: FINASTERIDE 5 MG TAB PO SCH (20:16)
[2020-01-05] MEDS: ATORVASTATIN 40 MG TAB PO SCH (20:16)
[2020-01-05] MEDS: GUAIFENESIN 200 MG/10 ML UDC PO PRN (20:17)
[2020-01-05] MEDS: ISOSORBIDE DINITRATE 20 MG TAB PO SCH (20:17)
--- NOTE | 2020-01-05 22:00 | NUR ---
Assessment done.aaox3.no resp.distress.no pain voiced.nasal pack to left nares present.voided.bed alarm on.bed locked and in lowest position.phone and call light within reach.instructed to call for assistance as needed.bruised noted to both arms ,right flank.
[2020-01-05] MEDS: PRIMIDONE 50 MG TAB PO SCH (22:53)
[2020-01-05] MEDS: ALBUTEROL/IPRATROPIUM 3 ML NEB NEB PRN (23:55)
--- NOTE | 2020-01-05 23:58 | NUR ---
WHEEZING AND SHORTNESS OF BREATH NOTED.NOTIFIED TO .RECIEVED NEW ORDERS.
[2020-01-06] VITALS (8 sets, daily range): BP systolic 106–135; BP diastolic 57–78
[2020-01-06] MEDS: GUAIFENESIN 200 MG/10 ML UDC PO PRN (01:15)
[2020-01-06 01:23] LABS: ANION GAP 12.8 mmol/L (8-16); BLOOD UREA NITROGEN 10 mg/dL (7-26); BUN/CREATININE RATIO 14 (6-25); CALCIUM 8.5 mg/dL (8.4-10.2); CARBON DIOXIDE 25 mmol/L (22-29); CHLORIDE 78 mmol/L (98-107); CREATININE, SERUM 0.73 mg/dL (0.72-1.25); EST GLOMERULAR FILTRATION RATE > 60 ML/MIN (60-); GLUCOSE 112 mg/dL (74-118); POTASSIUM 3.8 mmol/L (3.5-5.1)
[2020-01-06 01:44] LABS: SODIUM 112 mmol/L (136-145)
--- NOTE | 2020-01-06 02:31 | NUR ---
Pamela ii2.left the message to answering service.
--- NOTE | 2020-01-06 04:00 | NUR ---
PATIENT IS NOT LYEING IN THE BED.SITTING ON THE BED.EDUCATED FALL RISK.THEN PATIENT IS IRRITATED AND NOT LISTENING .
[2020-01-06] MEDS: SODIUM CHLORIDE 0.9% 1000ML 1,000 ML IV SCH (05:36)
[2020-01-06 05:40] LABS: BASOPHILS % 0.4 % (0.0-1.0); EOSINOPHILS # (AUTO) 0.1 (0.0-0.4); EOSINOPHILS % 1.3 % (0.0-6.0); HEMATOCRIT 26.5 % (38.2-49.6); HEMOGLOBIN 8.7 g/dL (14.0-18.0); LYMPHOCYTES # (AUTO) 0.8 (1.0-3.2); LYMPHOCYTES % 7.9 % (18.0-39.1); MEAN CORPUSCULAR HEMOGLOBIN 24.2 pg (28-32); MEAN CORPUSCULAR HGB CONC 32.8 g/dL (31-35); MEAN CORPUSCULAR VOLUME 73.8 fL (81-99); MONOCYTES # (AUTO) 0.9 (0.2-0.8); MONOCYTES % 8.7 % (4.4-11.3); NEUTROPHILS # (AUTO) 8.3 (2.1-6.9); NEUTROPHILS % 81.2 % (38.7-80.0); PLATELET COUNT 245 x10e3/uL (140-360); RED BLOOD COUNT 3.59 x10e6/uL (4.3-5.7); RED CELL DISTRIBUTION WIDTH 15.9 % (11.7-14.4)
[2020-01-06 06:04] LABS: ANION GAP 10.7 mmol/L (8-16); BLOOD UREA NITROGEN 9 mg/dL (7-26); BUN/CREATININE RATIO 13 (6-25); CALCIUM 8.4 mg/dL (8.4-10.2); CARBON DIOXIDE 25 mmol/L (22-29); CHLORIDE 80 mmol/L (98-107); CREATININE, SERUM 0.69 mg/dL (0.72-1.25); EST GLOMERULAR FILTRATION RATE > 60 ML/MIN (60-); GLUCOSE 112 mg/dL (74-118); POTASSIUM 3.7 mmol/L (3.5-5.1)
[2020-01-06 06:11] LABS: SODIUM 112 mmol/L (136-145)
[2020-01-06] MEDS: ALBUTEROL/IPRATROPIUM 3 ML NEB NEB PRN (06:30)
[2020-01-06 06:32] LABS: MAGNESIUM 1.9 MG/DL (1.3-2.1); PHOSPHORUS 1.7 MG/DL (2.3-4.7)
--- NOTE | 2020-01-06 07:00 | NUR ---
PATIENT YELLING FOR HELP ENTER THE ROOM.WITNESSED PATIENT WAS LYEING ON THE FLOOR.ASSESSMENT DONE.ORIENTED.HE HAD SKIN TEAR ON THE R.FOR ARM FROM HOME.SKIN TEAR SITE WAS BLEEDING.APPLIED PRESSURE DRESSING.ASSISTED THE PATIENT TO BACK TO BED SAFELY.NOTIFIED TO . ORDERED FOR CT BRAIN WO.TRIED TO CONTACT .LEFT THE MESSAGE TO [phone].NOTIFIED TO SYSTEMS DEVELOPMENT CONSULTANT.POST FALL ASSESSMENT COMPLETED.NEURO CHECKS COMPLETED.REPORT GIVEN TO ONCOMING RN.STABLE CONDITION.
--- NOTE | 2020-01-06 07:45 | NUR ---
Spoke with Dr. Ocasio to report labs results from this morning. Received orders to change fuid restriction to 1 liter/day, stop fluids, give lasix 40mg iv X1, change diet to regular diet and notify him of 1200 lab results.
--- NOTE | 2020-01-06 08:21 | Diagnostic Imaging Report ---
EXAMINATION: Head CT HISTORY: Status post fall, feels very sleepy, epistaxis. COMPARISON: Head CT 01/05/2020 TECHNIQUE: Helical axial images of the head were obtained. Reformatted coronal and sagittal images from the axial data. Dose modulation, iterative reconstruction, and/or weight based adjustment of the mA/kV was utilized to reduce the radiation dose to as low as reasonably achievable. Image quality: Motion/streaking artifact limits the evaluation of the skull base and posterior cranial fossa. FINDINGS: Parenchyma: 1. Unchanged mild to moderate confluent supratentorial and matter hypodensities, most likely nonspecific chronic microvascular ischemic changes. 2. No mass or hemorrhage. No CT evidence of acute territorial vascular insult. Extra-axial spaces:No abnormal density. No extra-axial fluid collections Brain volume: Normal for age. Ventricles: Stable ventriculomegaly of the lateral ventricles and unchanged right parietal ventricular shunt catheter with the tip in the right lateral ventricle body. The intracranial and visualized extracranial tubings are intact. Arteries: No density suggestive of thrombus. Dural sinuses: No abnormal density. Foramen magnum: No mass, Chiari malformation, or basilar invagination. Sella: No obvious mass. Paranasal/mastoid sinuses: Persistent partial opacification of the right greater than left maxillary and left sphenoid sinuses and bilateral nasal cavities. Skull/Scalp: No lytic or blastic lesions. Mild right forehead soft tissue swelling/hematoma without underlying fractures. Right parietal zaid hole. IMPRESSION: 1. Mild right forehead soft tissues swelling/hematoma without underlying fractures. 2. No acute post traumatic intracranial hemorrhage. 3. Mild chronic microvascular ischemic changes unchanged from head CT of 01/05/2020. 4. Unchanged right parietal ventricular shunt catheter and mild ventriculomegaly. Signed by: Dr. Loulou Diaz M.D. on 01/06/2020 8:17 AM
[2020-01-06] MEDS ORDERED: FUROSEMIDE INJ 10 MG/ML 4 ML VIAL IV ONE (08:30)
[2020-01-06] MEDS: SODIUM CHLORIDE 1 GM TAB PO SCH ×2 (08:35→12:30)
[2020-01-06] MEDS: ASPIRIN 81 MG CHEW TAB PO SCH (08:35)
[2020-01-06] MEDS: FOLIC ACID 1 MG TAB PO SCH (08:36)
[2020-01-06] MEDS: CLOPIDOGREL BISULFATE 75 MG TAB PO SCH (08:39)
[2020-01-06] MEDS: PANTOPRAZOLE SOD 40 MG TABEC PO SCH ×2 (08:39→16:50)
[2020-01-06] MEDS: METOPROLOL SUCCINATE 50 MG TAB XL PO SCH ×2 (08:41→16:50)
[2020-01-06] MEDS: POTASSIUM CHLORIDE 10MEQ EA PO SCH (08:44)
[2020-01-06] MEDS: [UNRECOGNIZED DRUG - OTHER] PO SCH (09:00)
[2020-01-06] MEDS: THIAMINE HCL 100 MG TAB PO SCH (09:00)
--- NOTE | 2020-01-06 09:40 | NUR ---
Pt unavailable at this time. Pt's nurse performing procedure bedside. I will follow up as able. GAYE NAIK [facility] O: [phone] Pager: [phone] ([phone] number calling from)
--- NOTE | 2020-01-06 10:58 | Progress Note ---
DATE: 01/06/2020 Internal Medicine Progress Note SUBJECTIVE: The patient fell last night. Apparently, he is drinking lot of water while restricting him on fluids because the sodium is still pretty much the same. We are suspecting that he is drinking too much fluid and that produced the hyponatremia. OBJECTIVE: HEART: Showed regular rhythm. Normal S1, S2 sound. LUNGS: Clear bilaterally. ABDOMEN: Soft. EXTREMITIES: Show no edema. LABORATORY DATA: On the BMP; sodium 112, potassium 3.7, chloride 80, CO2 of 25, BUN 9, creatinine 0.69, glucose is 112, calcium 8.4, phosphorus low at 1.7, magnesium normal at 1.9. On the CBC; white count 10.17, hemoglobin 8.7, hematocrit 26.5, platelet count 245,000. Toxicology urinalysis came back unremarkable. Brain CT that repeated today because of the fall showed mild right forehead soft tissue swelling and hematoma without underlying fractures, no acute posttraumatic intracranial hemorrhage, mild chronic microvascular ischemic changes, unchanged from the CT of the head from yesterday ventriculomegaly. Also, he had a CT of the cervical spine, which showed no fracture. ASSESSMENT: 1. Severe hyponatremia. 2. Hypokalemia. 3. Alcohol intoxication. 4. Fall. 5. Acute anemia. 6. History of coronary disease. 7. Hypophosphatemia. PLAN OF TREATMENT: We are going to reinforce the fluid restriction. The patient is on albuterol and Atrovent every 4 hours as needed for shortness of breath, Norvasc 5 mg daily, aspirin 81 mg daily, Lipitor 80 mg daily, Plavix 75 mg daily, Pepcid 20 mg daily, Proscar 5 mg daily, folic acid 1 mg daily, he got one dose of furosemide 40 mg IV push one time, guaifenesin 400 mg q.4 hours as needed for cough, isosorbide dinitrate 15 mg daily, continue metoprolol 125 mg twice a day, he is on Benicar 40 mg daily, he is on Protonix 40 mg twice a day, he is on potassium 10 mEq p.o. daily. He is on primidone 50 mg at bedtime. He is on sodium chloride 1 g 3 times a day with meals, Flomax 0.4 mg daily, thiamine 100 mg daily, 365 mg daily, we are going to also replace we are going to continue doing a BMP q.6 hours. MD KYLAH Haynes/JULIANNA /[id number]
[2020-01-06] MEDS: FAMOTIDINE 20 MG TAB PO SCH ×2 (12:30→21:45)
[2020-01-06] MEDS: OLMESARTAN 20 MG TAB PO SCH (12:31)
[2020-01-06] MEDS: AMLODIPINE BESYLATE 5 MG TAB PO SCH (12:31)
[2020-01-06 12:52] LABS: ANION GAP 12.2 mmol/L (8-16); BLOOD UREA NITROGEN 8 mg/dL (7-26); BUN/CREATININE RATIO 10 (6-25); CALCIUM 8.6 mg/dL (8.4-10.2); CARBON DIOXIDE 28 mmol/L (22-29); CHLORIDE 79 mmol/L (98-107); CREATININE, SERUM 0.78 mg/dL (0.72-1.25); EST GLOMERULAR FILTRATION RATE > 60 ML/MIN (60-); GLUCOSE 153 mg/dL (74-118); POTASSIUM 3.2 mmol/L (3.5-5.1)
[2020-01-06 12:56] LABS: SODIUM 116 mmol/L (136-145)
--- NOTE | 2020-01-06 13:00 | NUR ---
Spoke with Dr. Ocasio to report BMP results and received orders to redraw BMP at 1600.
[2020-01-06] MEDS ORDERED: POTASSIUM CHLORIDE 20 MEQ TAB CR PO SCH (14:00)
[2020-01-06 16:41] LABS: ANION GAP 11.7 mmol/L (8-16); BLOOD UREA NITROGEN 10 mg/dL (7-26); BUN/CREATININE RATIO 13 (6-25); CALCIUM 8.7 mg/dL (8.4-10.2); CARBON DIOXIDE 28 mmol/L (22-29); CHLORIDE 80 mmol/L (98-107); CREATININE, SERUM 0.77 mg/dL (0.72-1.25); EST GLOMERULAR FILTRATION RATE > 60 ML/MIN (60-); GLUCOSE 117 mg/dL (74-118); POTASSIUM 3.7 mmol/L (3.5-5.1)
[2020-01-06] MEDS: TAMSULOSIN HCL 0.4 MG CAP PO SCH ×2 (16:50→20:45)
[2020-01-06 17:04] LABS: SODIUM 116 mmol/L (136-145)
[2020-01-06] MEDS ORDERED: FUROSEMIDE INJ 10 MG/ML 2 ML VIAL IV ONE (17:30)
--- NOTE | 2020-01-06 17:30 | NUR ---
Notified Dr. Ocasio of lab results. Received orders to give Lasix 20mg IV x1 at this time. Received orders to redraw BMP at [address] Ocasio if sodium is <116 or >120. Continue with 1Liter fluid restriction.
--- NOTE | 2020-01-06 19:50 | NUR ---
Bed alarm on.educated the patient to call for help and don't get up alone.but he is non compliance.trying to get up.put chair alarm on.sitting on the bed.keep monitor the patient.
[2020-01-06] MEDS: ATORVASTATIN 40 MG TAB PO SCH (21:45)
[2020-01-06] MEDS: ISOSORBIDE DINITRATE 20 MG TAB PO SCH (21:45)
[2020-01-06] MEDS: PRIMIDONE 50 MG TAB PO SCH (22:07)
[2020-01-06] MEDS: FINASTERIDE 5 MG TAB PO SCH (22:07)
[2020-01-06] MEDS ORDERED: PRIMIDONE 50 MG TAB PO SCH (22:30)
--- NOTE | 2020-01-06 23:12 | NUR ---
Blood radha and sent to the lab.patient tolerated well.
[2020-01-06 23:39] LABS: ANION GAP 13.3 mmol/L (8-16); BLOOD UREA NITROGEN 10 mg/dL (7-26); BUN/CREATININE RATIO 13 (6-25); CALCIUM 8.5 mg/dL (8.4-10.2); CARBON DIOXIDE 27 mmol/L (22-29); CHLORIDE 80 mmol/L (98-107); EST GLOMERULAR FILTRATION RATE > 60 ML/MIN (60-); GLUCOSE 118 mg/dL (74-118); POTASSIUM 3.3 mmol/L (3.5-5.1)
[2020-01-07] VITALS (8 sets, daily range): BP systolic 99–119; BP diastolic 55–69
[2020-01-07] LABS: SODIUM 117 mmol/L (136-145)
--- NOTE | 2020-01-07 04:00 | NUR ---
Wheezing noted.breathing treatment given.nasal pack to left nares present.
[2020-01-07] MEDS: ALBUTEROL/IPRATROPIUM 3 ML NEB NEB PRN ×2 (05:15→19:10)
[2020-01-07 06:40] LABS: ANION GAP 10.1 mmol/L (8-16); BLOOD UREA NITROGEN 9 mg/dL (7-26); BUN/CREATININE RATIO 12 (6-25); CALCIUM 8.7 mg/dL (8.4-10.2); CARBON DIOXIDE 30 mmol/L (22-29); CHLORIDE 84 mmol/L (98-107); CREATININE, SERUM 0.74 mg/dL (0.72-1.25); EST GLOMERULAR FILTRATION RATE > 60 ML/MIN (60-); GLUCOSE 116 mg/dL (74-118); POTASSIUM 3.1 mmol/L (3.5-5.1); SODIUM 121 mmol/L (136-145)
--- NOTE | 2020-01-07 07:00 | NUR ---
Received bedside shift report from off going night nurse. Patient in stable condition. No distress noted. Sitting at bedside with bed alarm in place. Call light within reach.
--- NOTE | 2020-01-07 07:00 | NUR ---
Bed side shift report given to oncoming Rn.stable condition.
[2020-01-07] MEDS: METOPROLOL SUCCINATE 50 MG TAB XL PO SCH ×2 (08:33→16:45)
[2020-01-07] MEDS: AMLODIPINE BESYLATE 5 MG TAB PO SCH (08:33)
[2020-01-07] MEDS ORDERED: POTASSIUM CHLORIDE 20 MEQ TAB CR PO ONE (08:55)
[2020-01-07] MEDS: OLMESARTAN 20 MG TAB PO SCH (08:57)
[2020-01-07] MEDS: FOLIC ACID 1 MG TAB PO SCH (08:59)
[2020-01-07] MEDS: FUROSEMIDE 20 MG TAB PO SCH (08:59)
[2020-01-07] MEDS: POTASSIUM CHLORIDE 10MEQ EA PO SCH (08:59)
[2020-01-07] MEDS: ASPIRIN 81 MG CHEW TAB PO SCH (08:59)
[2020-01-07] MEDS: PHOSPHORUS 250 MG TAB PO SCH (08:59)
[2020-01-07] MEDS ORDERED: POTASSIUM CHLORIDE 10MEQ EA PO SCH (09:00)
[2020-01-07] MEDS: PANTOPRAZOLE SOD 40 MG TABEC PO SCH ×2 (09:00→16:52)
[2020-01-07] MEDS: THIAMINE HCL 100 MG TAB PO SCH (09:02)
[2020-01-07] MEDS: CLOPIDOGREL BISULFATE 75 MG TAB PO SCH (09:02)
[2020-01-07] MEDS: [UNRECOGNIZED DRUG - OTHER] PO SCH (09:08)
--- NOTE | 2020-01-07 09:14 | NUR ---
Dr. Ocasio on the unit notified him about the sodium level of 121. Received an new order to contact DR. Ocasio Q6hrs with Sodium levels.
[2020-01-07] MEDS: FAMOTIDINE 20 MG TAB PO SCH ×2 (10:24→21:00)
[2020-01-07] MEDS: GUAIFENESIN 200 MG/10 ML UDC PO PRN (10:38)
--- NOTE | 2020-01-07 12:13 | NUR ---
Called out to the doctor for orders ( for PT eval, Sliding scale, and lab work). awaiting for a return call. A tempted call out x2. Addendum: 01/07/20 at 1439 by Stefania Serrano RN Wrong patient.
[2020-01-07 13:15] LABS: ANION GAP 12.8 mmol/L (8-16); BLOOD UREA NITROGEN 11 mg/dL (7-26); BUN/CREATININE RATIO 12 (6-25); CALCIUM 9.2 mg/dL (8.4-10.2); CARBON DIOXIDE 28 mmol/L (22-29); CHLORIDE 85 mmol/L (98-107); CREATININE, SERUM 0.93 mg/dL (0.72-1.25); EST GLOMERULAR FILTRATION RATE > 60 ML/MIN (60-); GLUCOSE 125 mg/dL (74-118); POTASSIUM 3.8 mmol/L (3.5-5.1); SODIUM 122 mmol/L (136-145)
--- NOTE | 2020-01-07 14:06 | NUR ---
Called Dr. Olguin Office and left a message with the sheriffs officer about the patient's lab results.
--- NOTE | 2020-01-07 14:56 | Progress Note ---
DATE: 01/07/2020 Internal Medicine Progress Note SUBJECTIVE: The patient is doing better. PHYSICAL EXAMINATION: VITAL SIGNS: Blood pressure 104/69, temperature 98.4, heart rate 83 per minute, respiratory rate 22 per minute, ox saturation 99%. HEART: Showed regular rhythm. Normal S1, S2 sound. LUNGS: Clear bilaterally. ABDOMEN: Soft. EXTREMITIES: Show no edema. LABORATORY DATA: Blood work with sodium 122, potassium 3.8, chloride 85, CO2 28, BUN of 11, creatinine 0.83, glucose 125, calcium 9.2, phosphorous 2.7. On the CBC; white blood count 10.17, hemoglobin 8.7, hematocrit 26.5, platelet count 245,000. FINAL IMPRESSION: 1. Severe hyponatremia, most likely secondary to volume overload and alcohol intoxication, so is most likely hypervolemic hyponatremia. 2. Hypophosphatemia. 3. Hypokalemia. 4. Alcohol intoxication. 5. Fall. 6. Acute anemia. 7. History of coronary artery disease. We are going to continue monitoring the sodium levels carefully every 6 hours. Continue albuterol and Atrovent q.4 hours. Continue Norvasc 5 mg daily, aspirin 81 mg daily, Lipitor 80 mg daily, Plavix 75 mg daily, Pepcid 20 mg daily. Continue Proscar 5 mg at bedtime, folic acid 1 mg daily, furosemide 20 mg daily, guaifenesin 400 mg q.4 hours as needed for cough, isosorbide mononitrate 15 mg daily, metoprolol 125 mg twice a day, Benicar 40 mg daily, Protonix 40 mg twice a day, daily, potassium chloride 10 mEq daily, primidone 50 mg at bedtime, Flomax 0.4 mg daily, thiamine 100 mg daily, . MD KYLAH Haynes/JULIANNA /[id number]
--- NOTE | 2020-01-07 17:01 | NUR ---
Received a call back from Dr. Olguin about receiving the message left about the lab results. He stated to call him back when receiving the results for the 1800 lab results.
[2020-01-07 19:06] LABS: ANION GAP 12.8 mmol/L (8-16); BLOOD UREA NITROGEN 12 mg/dL (7-26); BUN/CREATININE RATIO 12 (6-25); CALCIUM 9.1 mg/dL (8.4-10.2); CARBON DIOXIDE 28 mmol/L (22-29); CHLORIDE 88 mmol/L (98-107); EST GLOMERULAR FILTRATION RATE > 60 ML/MIN (60-); GLUCOSE 156 mg/dL (74-118); POTASSIUM 3.8 mmol/L (3.5-5.1); SODIUM 125 mmol/L (136-145)
--- NOTE | 2020-01-07 19:11 | NUR ---
Gave bedside given to oncoming nurse. Telemetry in place and working. Patient in stable condition. No distress noted. No complaints of pain. Bed alarm in place and working. Call light within reach. Belongings within reach.
[2020-01-07] MEDS: ATORVASTATIN 40 MG TAB PO SCH (21:00)
[2020-01-07] MEDS: PRIMIDONE 50 MG TAB PO SCH (21:00)
[2020-01-07] MEDS: ISOSORBIDE DINITRATE 20 MG TAB PO SCH (21:00)
[2020-01-07] MEDS: TAMSULOSIN HCL 0.4 MG CAP PO SCH (21:00)
[2020-01-07] MEDS: FINASTERIDE 5 MG TAB PO SCH (21:00)
--- NOTE | 2020-01-07 21:00 | NUR ---
PATIENT IN STABLE CONDITION AOX4, NO SIGNS OF DISTRESS NOTED. NASAL CANNULA IS INTACT AND RUNNING AT 2L, PATIENT VOICES NO PAIN AT THIS TIME. PACKING IN LEFT NOSTRIL NOTED AND DRESSINGS ON SKIN ARE CLEAN DRY AND INTACT. PATIENT DIRECTED TO USE CALL LIGHT FOR ASSISTANCE. BED IS IN LOWEST POSITION, SIDE RAILS ARE UP, CALL LIGHT IS WITHIN EASY REACH, WILL CONTINUE TO MONITOR.
[2020-01-08] VITALS: BP 106/55
[2020-01-08 00:45] LABS: ANION GAP 12.9 mmol/L (8-16); BLOOD UREA NITROGEN 14 mg/dL (7-26); BUN/CREATININE RATIO 15 (6-25); CALCIUM 9.3 mg/dL (8.4-10.2); CARBON DIOXIDE 28 mmol/L (22-29); CHLORIDE 88 mmol/L (98-107); CREATININE, SERUM 0.94 mg/dL (0.72-1.25); EST GLOMERULAR FILTRATION RATE > 60 ML/MIN (60-); GLUCOSE 123 mg/dL (74-118); POTASSIUM 3.9 mmol/L (3.5-5.1); SODIUM 125 mmol/L (136-145)
[2020-01-08] MEDS: ALBUTEROL/IPRATROPIUM 3 ML NEB NEB PRN ×3 (01:50→11:22)
[2020-01-08 04:00] VITALS: BP 128/66
[2020-01-08 06:00] LABS: ANION GAP 11.5 mmol/L (8-16); BLOOD UREA NITROGEN 11 mg/dL (7-26); BUN/CREATININE RATIO 13 (6-25); CALCIUM 9.1 mg/dL (8.4-10.2); CARBON DIOXIDE 29 mmol/L (22-29); CHLORIDE 91 mmol/L (98-107); CREATININE, SERUM 0.82 mg/dL (0.72-1.25); EST GLOMERULAR FILTRATION RATE > 60 ML/MIN (60-); GLUCOSE 121 mg/dL (74-118); POTASSIUM 3.5 mmol/L (3.5-5.1); SODIUM 128 mmol/L (136-145)
--- NOTE | 2020-01-08 07:00 | NUR ---
Received bedside shift report from off going night nurse. Patient in stable condition. No distress noted. No complaints of pain. In bed with bed alarm in place. Call light within reach. Bed in lowest position and locked. Belonging within reach.
[2020-01-08 07:53] VITALS: BP 104/75
[2020-01-08 07:58] VITALS: BP 104/75
[2020-01-08] MEDS: ASPIRIN 81 MG CHEW TAB PO SCH (09:17)
[2020-01-08] MEDS: OLMESARTAN 20 MG TAB PO SCH (09:19)
[2020-01-08] MEDS: FOLIC ACID 1 MG TAB PO SCH (09:19)
[2020-01-08] MEDS: POTASSIUM CHLORIDE 10MEQ EA PO SCH (09:20)
[2020-01-08] MEDS: FUROSEMIDE 20 MG TAB PO SCH (09:20)
[2020-01-08] MEDS: PHOSPHORUS 250 MG TAB PO SCH (09:20)
[2020-01-08] MEDS: CLOPIDOGREL BISULFATE 75 MG TAB PO SCH (09:21)
[2020-01-08] MEDS: AMLODIPINE BESYLATE 5 MG TAB PO SCH (09:21)
[2020-01-08] MEDS: PANTOPRAZOLE SOD 40 MG TABEC PO SCH (09:21)
[2020-01-08] MEDS: THIAMINE HCL 100 MG TAB PO SCH (09:22)
[2020-01-08] MEDS: METOPROLOL SUCCINATE 50 MG TAB XL PO SCH (09:24)
[2020-01-08] MEDS: [UNRECOGNIZED DRUG - OTHER] PO SCH (09:26)
[2020-01-08] MEDS: GUAIFENESIN 200 MG/10 ML UDC PO PRN (09:47)
--- NOTE | 2020-01-08 10:29 | Discharge Summary ---
HISTORY: A 64-year-old male with past medical history positive for coronary artery disease, hypertension, alcohol abuse, pulmonary fibrosis, came here because he fell. He was intoxicated with alcohol. His sodium was very low. Sodium went up from 112 to 128 over several days in a slow increase of sodium. He was started on IV normal saline at the beginning, then was discontinued. He was started on sodium tablet and he was weaned off the sodium tablets. The patient was placed on fluid restriction. The patient is doing better now. He was seen by Dr. Ocasio, cable installation technician also. The patient is going home today. PHYSICAL EXAMINATION: VITAL SIGNS: Blood pressure 104/75, temperature 97.8, heart rate 112 per minute, respiratory rate 19 per minute, oxygen saturation 98%. HEART: Showed regular rhythm. Normal S1 and S2 sound. LUNGS: Clear bilaterally. ABDOMEN: Soft. LABORATORY DATA: On the blood work, we have BMP; sodium 128, potassium 3.5, chloride 91, CO2 of 29, BUN 11, creatinine 0.82, glucose 121. FINAL IMPRESSION: 1. Severe hyponatremia, which is hypotonic. 2. Coronary artery disease, status post stents. 3. Hypertension. 4. Morbid obesity. 5. History of pulmonary fibrosis. PLAN OF TREATMENT: The patient is going to be discharged on amlodipine 5 mg daily, aspirin 81 mg daily, Lipitor 80 mg daily, Plavix 75 mg daily, Pepcid 20 mg twice a day, finasteride 5 mg at bedtime, folic acid 1 mg daily, furosemide 20 mg daily. Continue isosorbide dinitrate 15 mg daily, metoprolol 125 mg twice a day, Benicar 40 mg daily. We are going to discontinue the Benicar with combination with hydrochlorothiazide. The patient is aware of that. Continue Protonix 40 mg daily. Continue potassium chloride 10 mEq daily, primidone 50 mg at bedtime, Flomax 0.4 mg at bedtime, thiamine 100 mg daily, Symbiotic 365 mg p.o. daily. The patient is going to be discharged home today. Follow up with Dr. Ocasio in a week and we are going to also consult Dr. Lea, ENT to remove the packing because of epistaxis that he has. HonorioMD KYLAH Avalos/JULIANNA /[id number]
[2020-01-08] MEDS: FAMOTIDINE 20 MG TAB PO SCH (11:16)
[2020-01-08 11:36] VITALS: BP 104/77
--- NOTE | 2020-01-08 12:39 | NUR ---
IMM LETTER EXPLAINED TO PT. PT VERBALIZED UNDERSTANDING. IMM LETTER SIGNED. COPY TO PT AND COPY TO CHART.
[2020-01-08 15:20] VITALS: BP 98/62
[2020-01-08] MEDS ORDERED: ACETAMINOPHEN 325 MG TAB PO SCH (15:45)
--- NOTE | 2020-01-08 16:01 | NUR ---
PROVIDED WAKER ORDERED OBTAINED SIGNATURES AND WILL FILE IN PACU FOR PROCESSING.
--- NOTE | 2020-01-08 16:39 | NUR ---
CM MET W THE PT AT THE BEDSIDE TO DISCUSS HH OPTIONS. PT STATES HE DID NOT WANT ANYONE COMING TO HIS HOME. NOTIFIED LESVIA BOATENG.
--- NOTE | 2020-01-08 17:11 | Discharge Summary ---
HISTORY: The patient is a 64-year-old male with past medical history positive mainly for hypertension, coronary artery disease, status post stent placement, history of alcohol abuse, came to the emergency room because he fell. He had very high levels of alcohol. He was found to have severe hyponatremia with sodium of 112 and potassium 2.8. He was started on IV normal saline fluid restriction, sodium tablets. Later on, the IV fluids were discontinued and sodium tablet with discontinued. The sodium came up all the way to 128 after few days in the hospital. We monitored his sodium every 6 hours very carefully, to avoid any rapid increase in the sodium level. The patient also had episode of epistaxis, packing was done. The patient will be seen by Dr. Alexy Lea today to remove the packing before he leaves. PHYSICAL EXAMINATION: HEART: Showed regular rhythm. Normal S1 and S2 sound. LUNGS: Clear bilaterally. ABDOMEN: Soft. LABORATORY DATA: On the blood work, we have CBC; white blood count 10.17, hemoglobin 8.7, hematocrit 26.5, and platelet count 245,000. On the BMP; sodium 128, potassium 3.5, chloride 91, CO2 of 29, BUN 11, creatinine 0.82, glucose 121, calcium 9.1, phosphorus 2.7. CT of the head did not show any significant acute abnormalities. Chest x-ray showed patchy density in lower lobes, [id number] elevation of right hemidiaphragm, which might reflect atelectasis. Cervical spine CT showed no evidence of any fracture or dislocation. FINAL IMPRESSION: 1. Severe hypotonic hyponatremia. 2. Hypertension. 3. Hypokalemia. 4. Hypophosphatemia. 5. Alcohol intoxication. 6. History of coronary artery disease. 7. Obesity. 8. History of pulmonary fibrosis. PLAN OF TREATMENT: The patient is going to be discharged home with instruction to continue home medications. Benicar has been prescribed without the hydrochlorothiazide. Continue albuterol and Atrovent q.4 hours as needed for shortness of breath, Norvasc 5 mg daily, aspirin 81 mg daily, Lipitor 80 mg daily DICTATION ENDS HERE MD KYLAH Hyanes/MODL /[id number]
--- NOTE | 2020-01-08 18:52 | NUR ---
Received discharge orders from. Dr. Santos. Patient discharged home at 1645 off the unit Per wheelchair by PCT. Patient in stable condition. no sign or symptoms of distress. Iv line removed with tip intact. Discharge teaching provided and patient verbalized understanding. Prescriptions given and explained. patient verbalized understanding. All belonging taken by the patient. Patient aware to go to DR. Lea office upon discharge.
== END 2020-01-08 16:45 | disposition home or self-care (01) | DRG 641 ==
LOC: ER 01:49 → ERHOLD 05:56 → MED/SURG3 07:50
PROVIDERS: ADMIT Internal Medicine; ATTEND Internal Medicine
DX: E87.1 Hypo-osmolality and hyponatremia (principal); E87.6 Hypokalemia; F10.220 Alcohol dependence with intoxication, uncomplicated; Y90.6 Blood alcohol level of 120-199 mg/100 ml; E83.39 Other disorders of phosphorus metabolism; J84.10 Pulmonary fibrosis, unspecified; Z68.31 Body mass index [BMI] 31.0-31.9, adult; I25.10 Atherosclerotic heart disease of native coronary artery without angina pectoris; Z95.5 Presence of coronary angioplasty implant and graft; E66.01 Morbid (severe) obesity due to excess calories; W19.XXXA Unspecified fall, initial encounter; S00.83XA Contusion of other part of head, initial encounter
CPT/HCPCS: 36415; 70450; 71045; 71260; 72125; 80048; 80053; 80320; 81001; 83735; 83935; 84100; 84300; 85025; 85610; 85730; 93005; 94640; 97139; 99285; J1940; J3411; J7030; Q9967

== ENCOUNTER → 2020-02-06 | Outpatient (CLI) | payer MEDICARE, OTHER ==
[~2020-02-06] MED LIST changes: +AMLODIPINE BESYL5 MG PO; +FAMOTIDINE20 MG PO; +IOPAMIDOL 370 MG/ML 200 ML INFUS..BTL INJ ONE; +MYSOLINE50 MG; +PRIMIDONE1 GM; +SODIUM CHLORIDE 0.9% 50ML 50 ML ONE; +[UNRECOGNIZED DRUG - OTHER]
[2020-02-06 11:50] LABS: BLOOD UREA NITROGEN 9 mg/dL (7-26); BUN/CREATININE RATIO 9 (6-25); CREATININE, SERUM 0.99 mg/dL (0.72-1.25); EST GLOMERULAR FILTRATION RATE > 60 ML/MIN (60-)
--- NOTE | 2020-02-06 13:03 | Diagnostic Imaging Report ---
EXAM: CT Abdomen and Pelvis WITH intravenous contrast INDICATION: Right abdominal pain COMPARISON: CT abdomen and pelvis of 03/11/2019 TECHNIQUE: Abdomen and pelvis were scanned utilizing a multidetector helical scanner from the lung base to the pubic symphysis after administration of IV contrast. Coronal and sagittal reformations were obtained. Routine protocol was performed. Scan was performed during portal venous phase. IV CONTRAST: 100mL of Isovue 370 ORAL CONTRAST: None RADIATION DOSE: Total DLP: 883 mGy*cm Dose modulation, iterative reconstruction, and/or weight based adjustment of the mA/kV was utilized to reduce the radiation dose to as low as reasonably achievable. FINDINGS: LINES: Right FIREMAN shunt catheter in place. LOWER THORAX: Bibasilar dependent subsegmental atelectasis. Smooth interlobular septal thickening compatible with mild pulmonary interstitial edema. Extensive coronary artery atherosclerotic calcifications. HEPATOBILIARY: No focal liver lesion. No biliary ductal dilation. Unremarkable gallbladder. SPLEEN: No splenomegaly. PANCREAS: No focal masses or ductal dilatation. ADRENALS: No adrenal nodules. KIDNEYS/URETERS: 1 cm left renal cyst. No hydronephrosis or renal calculi. PELVIC ORGANS/BLADDER: Unremarkable. PERITONEUM / RETROPERITONEUM: No free air or fluid. LYMPH NODES: No lymphadenopathy. VESSELS: Diffuse athetotic calcifications of the nonaneurysmal abdominal aorta and major branches. GI TRACT: Diverticulosis without CT evidence of diverticulitis. No abnormal bowel thickening. No bowel obstruction. Normal appendix. BONES AND SOFT TISSUES: No acute osseous injury. No suspicious lytic or blastic lesions. IMPRESSION: No acute findings in the abdomen or pelvis. Signed by: Alex Magallanes MD on 02/06/2020 1:00 PM
== END ==
LOC: CT 11:11
PROVIDERS: ATTEND Internal Medicine Gastroenterology
DX: R10.9 Unspecified abdominal pain (principal)
CPT/HCPCS: 36415; 74177; 82565; 84520; Q9967

== ENCOUNTER → 2020-05-20 | Outpatient (CLI) | payer MEDICARE, OTHER ==
[~2020-05-20] MED LIST changes: -IOPAMIDOL 370 MG/ML 200 ML INFUS..BTL INJ ONE; -SODIUM CHLORIDE 0.9% 50ML 50 ML ONE
--- NOTE | 2020-05-20 15:37 | Diagnostic Imaging Report ---
EXAM: ABDOMEN-1VIEW (KUB) DATE: 05/20/2020 3:00 PM INDICATION: Iron deficiency anemia, capsule tracking COMPARISON: CT abdomen/pelvis from 02/06/2020 FINDINGS/IMPRESSION: Partially visualized suspected ventriculoperitoneal shunt catheter tubing overlying the right abdomen. Bowel gas pattern appears nonspecific. No pathologically dilated loops of bowel are identified. No abnormal intra-abdominal calcification or radiopaque foreign body is identified to suggest retained capsule endoscopy device. Vascular calcifications noted. No acute osseous abnormality is identified. Signed by: Dr. Bird Zapien MD on 05/20/2020 3:34 PM
== END ==
LOC: RAD 14:34
PROVIDERS: ATTEND Internal Medicine Gastroenterology
DX: D50.0 Iron deficiency anemia secondary to blood loss (chronic) (principal); K59.03 Drug induced constipation
CPT/HCPCS: 74018

== ENCOUNTER → 2020-09-08 | Outpatient (CLI) | payer MEDICARE, OTHER ==
[~2020-09-08] MED LIST changes: +IOPAMIDOL 370 MG/ML 200 ML INFUS..BTL INJ ONE; +SODIUM CHLORIDE 0.9% 50ML 50 ML ONE
[2020-09-08 16:02] LABS: BLOOD UREA NITROGEN 22 mg/dL (7-26); BUN/CREATININE RATIO 24 (6-25); EST GLOMERULAR FILTRATION RATE > 60 ML/MIN (60-)
== END ==
LOC: CT 15:22
PROVIDERS: ATTEND Internal Medicine Gastroenterology
DX: R10.33 Periumbilical pain (principal)
CPT/HCPCS: 36415; 74177; 82565; 84520; Q9967

== ENCOUNTER → 2021-04-05 | Outpatient (CLI) | payer MEDICARE, OTHER ==
[~2021-04-05] MED LIST changes: -IOPAMIDOL 370 MG/ML 200 ML INFUS..BTL INJ ONE; -SODIUM CHLORIDE 0.9% 50ML 50 ML ONE
== END ==
LOC: US 09:28
PROVIDERS: ATTEND Internal Medicine Gastroenterology
DX: K76.0 Fatty (change of) liver, not elsewhere classified (principal)
CPT/HCPCS: 76705